=== PATIENT | male | born 1965 | race Caucasian/White ===

== ENCOUNTER 2021-07-24 23:07 | Emergency (ER) | payer OTHER ==
--- OUTSIDE RECORDS SUMMARY | 2021-07-24 23:11 | XMS REPORT | Continuity of Care Document ---
:[address] [facility] t Address [address] [place] [address] Care Team Providers Name Role Phone Unavailable Unavailable Unavailable Problems This patient has no known problems. Allergies, Adverse Reactions, Alerts This patient has no known allergies or adverse reactions. Medications This patient has no known medications. Procedures This patient has no known procedures. Results This patient has no known results.
[2021-07-24] MEDS ORDERED: IBUPROFEN 200 MG TAB PO ONE (23:58)
[2021-07-25] MEDS ORDERED: METOPROLOL TAR 50 MG TAB ONE (00:40)
[2021-07-25] MEDS ORDERED: HYDROCODONE/APAP 7.5/325 MG TAB ONE (00:40)
[2021-07-25] MEDS ORDERED: cloNIDine HCL 0.1 MG TAB ONE ×2 (01:04→01:54)
--- NOTE | 2021-07-25 08:53 | RAD REPORT ---
EXAM DESCRIPTION: RAD - Knee Left 3 View - 07/25/2021 1:05 am CLINICAL HISTORY: knee pain Pain and swelling. COMPARISON: Knee Left Wo Con dated 07/25/2021 FINDINGS: Small bony avulsion is seen along the medial femoral condyle. The adjacent soft tissues ar e moderately thickened. Small suprapatellar joint effusion.
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
[2021-07-25 11:32] VITALS: TEMP 97
[2021-07-25 11:33] VITALS: O2SAT 0
[2021-07-25 11:37] VITALS: BP 160/100
--- NOTE | 2021-07-25 13:06 | RAD REPORT ---
EXAM DESCRIPTION: CT Chest COMPARISON: None. CLINICAL HISTORY: [facility] MAIN chest pain TECHNIQUE: CT images through the chest without IV contrast. Multiplanar reformats. Automated expos ure control was utilized on this examination as a dose lowering technique. CT CHEST FINDINGS: Heart and mediastinum: Heart size is normal. No lymphadenopathy. Vascular: Unremarkable. Thyroid gland: Visualized portions are normal. Lungs: Clear. Airways: No filling defects. No bronchiectasis. Pleura: No pneumothorax. No significant pleural effusion. Subphrenic structures: Within normal limits. Musculoskeletal and soft tissues: Within normal limits for age. CHEST IMPRESSION: No acute chest process. Electronically signed by: Huy York MD 07/25/2021 1:16 AM CDT Due to temporary technical issues with the PACS/Fluency reporting system, reports are being signed by the in house radiologists without review as a courtesy to insure prompt reporting. The interpreting radiologist is fully responsible for the content of the report.
--- NOTE | 2021-07-25 13:15 | RAD REPORT ---
EXAM DESCRIPTION: CT Extremity COMPARISON: None. CLINICAL HISTORY: [facility] MAIN knee pain TECHNIQUE: Multiple axial images of the left knee without IV contrast. Multiplanar reformats. Automa keturah exposure control was utilized on this examination as a dose lowering technique. FINDINGS: Bones and joint spaces: Osseous demineralization is noted. There is a small osseous fragme nt adjacent to the medial femoral condyle. Small hemarthrosis. Muscles and tendons: Edema surrounds the medial collateral ligament. Soft tissues: Normal. IMPRESSION: Medial collateral ligament avulsion from the medial femoral condyle. Small hemarthrosis. Osseous demineralization. Electronically signed by: Huy York MD 07/25/2021 1:23 AM CDT Due to temporary technical issues with the PACS/Fluency reporting system, reports are being signed by the in house radiologists without review as a courtesy to insure prompt reporting. The interpreting radiologist is fully responsible for the content of the report.
== END 2021-07-25 02:19 | disposition home or self-care (01) ==
LOC: ER 23:07
DX: S83.412A Sprain of medial collateral ligament of left knee, initial encounter (principal); M25.062 Hemarthrosis, left knee; S20.221A Contusion of right back wall of thorax, initial encounter; W20.8XXA Other cause of strike by thrown, projected or falling object, initial encounter
CPT/HCPCS: 71250; 73700; 99283

== ENCOUNTER 2021-08-01 09:36 | Emergency (ER) | payer OTHER ==
[2021-08-01 10:30] LABS: Urine Blood 3+ (Negative); Urine Glucose Negative (Negative); Urine Protein 2+ (Negative); Urine Specific Gravity 1.025 (1.005-1.030)
[2021-08-01 10:43] LABS: Basophils % 1.2 % (0-1.3); Hematocrit 35.7 % (39.6-49.0); Lymphocytes % 21.9 % (15.3-44.8); MPV 5.6 fL (7.6-11.3); RBC Red Blood Cell Count 3.68 M/uL (4.33-5.43)
[2021-08-01 10:46] LABS: Protime INR 0.96
[2021-08-01] MEDS ORDERED: NA CHLORIDE 0.9% 1,000 ML ONE (10:58)
--- NOTE | 2021-08-01 11:08 | RAD REPORT ---
EXAM DESCRIPTION: CT - Abdomen Pelvis W Contrast - 08/01/2021 10:40 am CLINICAL HISTORY: Abdominal pain. Hematochezia COMPARISON: none. TECHNIQUE: Computed axial tomography of the abdomen pelvis was obtained. 100 cc Isovue-300 was admin istered intravenously. Oral contrast was not requested which limits evaluation of bowel. All CT scans are performed using dose optimization technique as appropriate and may include automated exposure control or mA/KV adjustment according to patient size. FINDINGS: The liver, spleen, pancreas, adrenal and kidneys appear unremarkable. There is no evidence of diverticulitis. Normal appendix Umbilical hernia contains fat. The neck measures 1 centimeter. The herniated sac 3 centimeters. Bilateral hip arthroplasties have been performed. Artifact from the prosthesis obscures detail of por tions of the lower pelvis. Small hiatal hernia IMPRESSION: No acute abnormality is displayed.
--- NOTE | 2021-08-01 11:13 | RAD REPORT ---
EXAM DESCRIPTION: Leroy Single View08/01/2021 10:41 am CLINICAL HISTORY: Chest pain COMPARISON: none FINDINGS: The lungs appear clear of acute infiltrate. The heart is normal size IMPRESSION: No acute abnormalities displayed
[2021-08-01 11:15] LABS: ALT/SGPT 15 U/L (12-78); AST/SGOT 13 U/L (15-37); Albumin 3.2 g/dL (3.4-5.0); Alkaline Phosphatase 59 U/L (45-117); BUN Blood Urea Nitrogen 19 mg/dL (7-18); Bicarbonate 28 mmol/L (21-32); Bilirubin Direct 0.1 mg/dL (0-0.2); Bilirubin Total 0.4 mg/dL (0.2-1.0); Glucose Level 92 mg/dL (74-106); NT PRO-BNP 84 pg/mL (<125); Potassium 4.2 mmol/L (3.5-5.1); Protein, Total 7.3 g/dL (6.4-8.2); Sodium Level 139 mmol/L (136-145); Troponin (Emerg Dept Use Only) < 0.02 ng/mL (0.0-0.045)
[2021-08-01] MEDS ORDERED: ONDANSETRON 4 MG/2 ML VIAL ONE (12:50)
[2021-08-01] MEDS ORDERED: MORPHINE 4 MG/ML SYR ONE (12:50)
--- NOTE | 2021-08-01 12:58 | ER ---
Nurse's Notes [facility] Name: Melchor Min Age: 55 yrs Sex: Male : 1965 Arrival Date: 08/01/2021 Time: 09:37 Bed 11 Private MD: Diagnosis: Chest pain, unspecified;UTI/ Urinary tract infection, site not specified Presentation: 08/01 09:50 Chief complaint: Patient states: CP and dark red blood in stool for 3 days. + nausea. ll1 Very weak. Slight cough, no known fever. Coronavirus screen: Vaccine status: Patient reports being unvaccinated. Client denies travel out of the [place] in the last 14 days. cough unrelated to allergies, diarrhea, fatigue, nausea, shortness of breath, Client presents with at least one sign or symptom that may indicate coronavirus-19. Standard/surgical mask placed on the client. Ebola Screen: Patient denies travel to an Ebola-affected area in the 21 days before illness onset. Initial Sepsis Screen: Does the patient meet any 2 criteria? No. Patient's initial sepsis screen is negative. Does the patient have a suspected source of infection? No. Patient's initial sepsis screen is negative. Risk Assessment: Do you want to hurt yourself or someone else? Patient reports no desire to harm self or others. Onset of symptoms was July 30, 2021. 09:50 Method Of Arrival: Ambulatory ll1 09:50 Acuity: TERRY 3 ll1 Historical: - Allergies: 09:52 No Known Allergies; ll1 - PMHx: 09:52 heart problems; ll1 - PSHx: 09:52 hip replacements x 2; ll1 - Immunization history:: Client reports having NOT received the Covid vaccine. Flu vaccine is up to date. - Social history:: Smoking status: Patient denies any tobacco usage or history of. - Family history:: not pertinent. - Hospitalizations: : No recent hospitalization is reported. Screenin:08 Abuse screen: Denies threats or abuse. Nutritional screening: No deficits noted. vg1 Tuberculosis screening: No symptoms or risk factors identified. Fall Risk No fall in past 12 months (0 pts). No secondary diagnosis (0 pts). IV access (20 points). Ambulatory Aid- None/Bed Rest/Nurse Assist (0 pts). Gait- Normal/Bed Rest/Wheelchair (0 pts) Mental Status- Oriented to own ability (0 pts). Total Lester Fall Scale indicates No Risk (0-24 pts). Assessment: 10:35 General: Appears in no apparent distress. uncomfortable, Behavior is calm, cooperative. vg1 Pain: Complains of pain in epigastric area and left shoulder Pain currently is 8 out of 10 on a pain scale. Pain began x1 week. Neuro: Level of Consciousness is awake, alert, obeys commands, Oriented to person, place, time, situation, Reports headache. Cardiovascular: Patient's skin is warm and dry. Respiratory: Airway is patent Respiratory effort is even, unlabored. GI: Abdomen is flat, non-distended, Reports bloody stool, epigastric pain, indigestion, nausea, Patient currently denies diarrhea, vomiting. : No signs and/or symptoms were reported regarding the genitourinary system. EENT: No signs and/or symptoms were reported regarding the EENT system. Derm: Skin is intact, is healthy with good turgor. Musculoskeletal: Circulation, motion, and sensation intact. 12:19 Reassessment: Patient appears in no apparent distress at this time. No changes from vg1 previously documented assessment. Patient and/or family updated on plan of care and expected duration. Pain level reassessed. Patient is alert, oriented x 3, equal unlabored respirations, skin warm/dry/pink. Vital Signs: 09:50 BP 138 / 99; Pulse 87; Resp 17; Pulse Ox 99% ; Weight 81.65 kg; Height 5 ft. 9 in. ll1 (175.26 cm); Pain 8/10; 09:54 Temp 98.0; ll1 10:45 BP 165 / 102; Pulse 80; Resp 16; Pulse Ox 100% ; vg1 12:18 BP 163 / 106; Pulse 86; Resp 16; Pulse Ox 100% ; vg1 13:11 BP 155 / 108; Pulse 88; Resp 16; Pulse Ox 100% ; vg1 09:50 Body Mass Index 26.58 (81.65 kg, 175.26 cm) ll1 ED Course: 09:37 Patient arrived in ED. am2 09:49 Carloz Fuchs MD is Attending Physician. rn 09:52 Triage completed. ll1 09:53 Arm band placed on Patient placed in an exam room, on a stretcher. ll1 10:20 Missed attempt(s): 20 gauge in right antecubital area. Bleeding controlled, band aid ll1 applied, catheter tip intact. 10:22 Missed attempt(s): 22 gauge in right forearm. Bleeding controlled, band aid applied, ll1 catheter tip intact. 10:31 Lacy Grant, RN is Primary Nurse. vg1 10:32 Initial lab(s) drawn, by ks, sent to lab. Inserted saline lock: 20 gauge in left vg1 antecubital area, using aseptic technique. Blood collected. 10:40 CT Abd/Pelvis - IV Contrast Only In Process Unspecified. EDMS 10:41 XRAY Chest (1 view) In Process Unspecified. EDMS 11:09 Patient has correct armband on for positive identification. Bed in low position. Call vg1 light in reach. Side rails up X 1. 11:51 Basic Metabolic Panel Sent. kj1 11:51 CBC with Diff Sent. kj1 12:53 ED physician to see patient. ap3 13:10 No provider procedures requiring assistance completed. IV discontinued, intact, vg1 bleeding controlled, No redness/swelling at site. Pressure dressing applied. Administered Medications: 10:55 Drug: NS 0.9% 1000 ml Route: IV; Rate: 1000 ml; Site: left antecubital; vg1 12:27 Follow up: IV Status: Completed infusion; IV Intake: 1000ml vg1 12:30 Drug: Zofran (Ondansetron) 4 mg Route: IVP; Site: left antecubital; vg1 12:59 Follow up: Response: No adverse reaction; Nausea is decreased ap3 12:32 Drug: morphine 4 mg Route: IVP; Site: left antecubital; vg1 12:59 Follow up: Response: No adverse reaction; Pain is decreased ap3 12:58 Drug: cloNIDine 0.2 mg Route: PO; ap3 13:10 Follow up: Response: Medication administered at discharge. vg1 12:58 Drug: Cipro (ciprofloxacin) 500 mg Route: PO; ap3 13:10 Follow up: Response: Medication administered at discharge. vg1 Intake: 12:27 IV: 1000ml; Total: 1000ml. vg1 Outcome: 12:58 Discharge ordered by . rn 13:11 Discharged to home ambulatory. vg1 13:11 Condition: stable 13:11 Discharge instructions given to patient, Instructed on discharge instructions, follow up and referral plans. medication usage, Demonstrated understanding of instructions, follow-up care, medications, Prescriptions given X 3. 13:11 Patient left the ED. vg1 Signatures: Dispatcher [employer] EDMS Carloz Fuchs MD MD rn Moreno, Amanda am2 Moni Eddy RN RN ap3 Nelia Hairston kj1 Lacy Grant RN RN vg1 Francisca Otto RN RN ll1 Corrections: (The following items were deleted from the chart) 11: 10:35 Pain: Complains of pain in epigastric area Pain currently is 8 out of 10 on a vg1 pain scale. Pain began x1 week vg1 11: 10:35 Neuro: Level of Consciousness is awake, alert, obeys commands, Oriented to vg1 person, place, time, situation, vg1
--- NOTE | 2021-08-01 12:58 | EDPHYS ---
Physician Documentation [facility] Name: Melchor Min Age: 55 yrs Sex: Male : 1965 Arrival Date: 08/01/2021 Time: 09:37 Bed 11 Private MD: ED Physician Carloz Fuchs HPI: 08/01 10:09 This 55 yrs old Male presents to ER via Ambulatory with complaints of Bloody rn Stools, Chest Pain. 10:09 The patient or guardian reports chest pain that is located primarily in the substernal rn area. Onset: 3 day(s) ago. The pain does not radiate. Associated signs and symptoms: Pertinent positives: abdominal pain, Pertinent negatives: diaphoresis, headache, shortness of breath, syncope, vomiting. The chest pain is described as aching. Duration: The patient or guardian reports multiple episodes, that are intermittent. Modifying factors: The symptoms are alleviated by nothing. the symptoms are aggravated by nothing. Severity of pain: At its worst the pain was mild in the emergency department the pain is unchanged. The patient has not experienced similar symptoms in the past. The patient has been recently seen by a physician:. Patient reports 3 days of chest pain, central, nonradiating. States also having small amounts of dark red blood in stool for about a week. Reports generalized weakness, fatigue, muscle aches, diarrhea. Denies fever. Does not take any blood thinners.. Historical: - Allergies: 09:52 No Known Allergies; ll1 - PMHx: 09:52 heart problems; ll1 - PSHx: 09:52 hip replacements x 2; ll1 - Immunization history:: Client reports having NOT received the Covid vaccine. Flu vaccine is up to date. - Social history:: Smoking status: Patient denies any tobacco usage or history of. - Family history:: not pertinent. - Hospitalizations: : No recent hospitalization is reported. ROS: 10:09 Constitutional: Negative for fever, chills, and weight loss, Eyes: Negative for injury, rn pain, redness, and discharge, ENT: Negative for injury, pain, and discharge, Neck: Negative for injury, pain, and swelling, Cardiovascular: Negative for palpitations, and edema, Respiratory: Negative for shortness of breath, cough, wheezing, and pleuritic chest pain, Abdomen/GI: Negative for vomiting,and constipation, Back: Negative for injury and pain, : Negative for injury, bleeding, discharge, and swelling, MS/Extremity: Negative for injury and deformity, Skin: Negative for injury, rash, and discoloration, Neuro: Negative for headache, numbness, tingling, and seizure. Exam: 10:09 Constitutional: This is a well developed, well nourished patient who is awake, alert, rn and in no acute distress. Head/Face: Normocephalic, atraumatic. Eyes: Periorbital areas with no swelling, redness, or edema. Cardiovascular: Regular rate and rhythm. No pulse deficits. Respiratory: No increased work of breathing, no retractions or nasal flaring. Abdomen/GI: Soft, non-tender Skin: Warm, dry MS/ Extremity: Pulses equal, no cyanosis. Neuro: Awake and alert, GCS 15 Vital Signs: 09:50 BP 138 / 99; Pulse 87; Resp 17; Pulse Ox 99% ; Weight 81.65 kg; Height 5 ft. 9 in. ll1 (175.26 cm); Pain 8/10; 09:54 Temp 98.0; ll1 10:45 BP 165 / 102; Pulse 80; Resp 16; Pulse Ox 100% ; vg1 12:18 BP 163 / 106; Pulse 86; Resp 16; Pulse Ox 100% ; vg1 13:11 BP 155 / 108; Pulse 88; Resp 16; Pulse Ox 100% ; vg1 09:50 Body Mass Index 26.58 (81.65 kg, 175.26 cm) ll1 MDM: 09:56 Patient medically screened. rn 12:55 Differential diagnosis: acute myocardial infarction, acute pericarditis, anxiety, rn coronary artery disease chest wall pain, costochondritis, esophagitis, gastritis, gastroesophageal reflux disease (GERD), pneumothorax. Data reviewed: vital signs, nurses notes, lab test result(s), radiologic studies, CT scan, plain films, and as a result, I will discharge patient. Data interpreted: hall monitor: rate is 86 beats/min, rhythm is normal sinus rhythm, regular, with no ectopy, Interpretation: normal rate, normal rhythm, Pulse oximetry: on room air is 100 %. Interpretation: normal. Counseling: I had a detailed discussion with the patient and/or guardian regarding: the historical points, exam findings, and any diagnostic results supporting the discharge/admit diagnosis, lab results, radiology results, the need for outpatient follow up, to return to the emergency department if symptoms worsen or persist or if there are any questions or concerns that arise at home. Special discussion: Based on the patient's history, exam, and Dx evaluation, there is no indication for emergent intervention or inpatient Tx. It is understood by the patient/guardian that if the Sx's persist or worsen they need to return immediately for re-evaluation. Based on the patient's Hx, exam, and Dx evaluation, there is no indication for emergent surgery or inpatient Tx. It is understood by the patient/guardian that if the Sx's persist or worsen they need to return immediately for re-evaluation. I discussed with the patient/guardian in detail that at this point there is no indication for admission to the hospital. It is understood, however, that if the symptoms persist or worsen the patient needs to return immediately for re-evaluation. ED course: No acute findings on CT abdomen pelvis. Positive UTI. Negative troponin. EKG without ischemia. Will DC home with antibiotics and return precautions.. 08/01 09:57 Order name: Basic Metabolic Panel 08/01 09:57 Order name: CBC with Diff 08/01 09:57 Order name: LFT's; Complete Time: 11: 08/01 09:57 Order name: NT PRO-BNP; Complete Time: 11: 08/01 09:57 Order name: PT-INR; Complete Time: 11: 08/01 09:57 Order name: Troponin (emerg Dept Use Only); Complete Time: 11: 08/01 09:57 Order name: XRAY Chest (1 view); Complete Time: 11: 08/01 09:58 Order name: Basic Metabolic Panel; Complete Time: 11:18 [facility] 08/01 09:58 Order name: CBC with Automated Diff; Complete Time: 11: [facility] 08/01 10:09 Order name: CT Abd/Pelvis - IV Contrast Only; Complete Time: 11:18 08/01 10:30 Order name: Urine Dipstick-Ancillary; Complete Time: 11: [facility] 08/01 12:40 Order name: SARS-COV-2 RT PCR; Complete Time: 12:51 [facility] 08/01 09:57 Order name: EKG; Complete Time: 09:58 rn 08/01 09:57 Order name: Cardiac monitoring; Complete Time: 11:06 rn 08/01 09:57 Order name: EKG - Nurse/Tech; Complete Time: 11:06 rn 08/01 09:57 Order name: IV Saline Lock; Complete Time: 10:33 rn 08/01 09:57 Order name: Labs collected and sent; Complete Time: 10:33 rn 08/01 09:57 Order name: O2 Per Protocol; Complete Time: 10:33 rn 08/01 09:57 Order name: O2 Sat Monitoring; Complete Time: 10:33 rn Administered Medications: 10:55 Drug: NS 0.9% 1000 ml Route: IV; Rate: 1000 ml; Site: left antecubital; vg1 12:27 Follow up: IV Status: Completed infusion; IV Intake: 1000ml vg1 12:30 Drug: Zofran (Ondansetron) 4 mg Route: IVP; Site: left antecubital; vg1 12:59 Follow up: Response: No adverse reaction; Nausea is decreased ap3 12:32 Drug: morphine 4 mg Route: IVP; Site: left antecubital; vg1 12:59 Follow up: Response: No adverse reaction; Pain is decreased ap3 12:58 Drug: cloNIDine 0.2 mg Route: PO; ap3 13:10 Follow up: Response: Medication administered at discharge. vg1 12:58 Drug: Cipro (ciprofloxacin) 500 mg Route: PO; ap3 13:10 Follow up: Response: Medication administered at discharge. vg1 Disposition Summary: 08/01/21 12:58 Discharge Ordered Location: Home rn Problem: new rn Symptoms: have improved rn Condition: Stable rn Diagnosis - Chest pain, unspecified rn - UTI/ Urinary tract infection, site not specified rn Followup: rn - With: Private Physician - When: As needed - Reason: Recheck today's complaints, Re-evaluation by your physician Discharge Instructions: - Discharge Summary Sheet rn - Nonspecific Chest Pain, Adult rn - Urinary Tract Infection, Adult rn Forms: - Medication Reconciliation Form rn - Thank You Letter rn - Antibiotic collections attorney - Prescription Opioid Use rn Prescriptions: - ondansetron 4 mg Oral tablet,disintegrating - take 1 tablet by ORAL route every 8 hours As needed; 20 tablet; Refills: 0, rn Product Selection Permitted - Cipro 500 mg Oral Tablet - take 1 tablet by ORAL route every 12 hours for 7 days; 14 tablet; Refills: 0, rn Product Selection Permitted - Tramadol 50 mg Oral Tablet - take 1 tablet by ORAL route every 8 hours as needed; 12 tablet; Refills: 0, rn Product Selection Permitted Signatures: Dispatcher [employer] EDMS Carloz Fuchs MD MD rn Prokisch, Amanda RN RN ap3 Lacy Grant RN RN vg1 Francisca Otto RN RN ll1 Corrections: (The following items were deleted from the chart) 11:45 09:58 CORONAVIRUS+MR.LAB.BRZ ordered. EDMS EDMS
[2021-08-01] MEDS ORDERED: CIPROFLOXACIN HCL 500 MG TAB ONE (13:21)
[2021-08-01] MEDS ORDERED: cloNIDine HCL 0.1 MG TAB ONE (13:21)
[2021-08-01 14:43] VITALS: TEMP 98
[2021-08-01 14:44] VITALS: O2SAT 100
[2021-08-01 14:47] VITALS: BP 155/108
== END 2021-08-01 13:11 | disposition home or self-care (01) ==
LOC: ER 09:36
DX: N39.0 Urinary tract infection, site not specified (principal); Z20.822 Contact with and (suspected) exposure to COVID-19
CPT/HCPCS: 96361; 93005; 85025; 80048; 36415; 85610; 82565; 80076; 81003; 84484; 83880; 74177; 71045; 96375; 96374; 99284; U0003; Q9967; J7030; J2405

== ENCOUNTER 2023-12-25 06:19 | Inpatient (IN) | payer OTHER ==
--- OUTSIDE RECORDS SUMMARY | 2023-12-25 06:24 | XMS REPORT | Continuity of Care Document ---
Author Name Unknown Address [address] [place] [address]. [address] [place] [id number] [facility] thconnect Address [address] [facility]. [address] [place] [address] Care Team Providers Care Baseball Glove Stuffer Name Role Phone Mayi Roman Attending Clinician Payers Payer Name Policy Type Policy Number Effective Date Expirati on Date Source Allergies, Adverse Reactions, Alerts Allergy Name Allergy Type Status Severity Reaction(s) Onset Date Inactive Date Treating Clinician Comments Source NO KNOWN ALLERGIE S Drug Class Active [facility] Social History Social Habit Start Date Stop Date Quantity Comments Source Sex Assigned At [facility] Exposure to SARS-CoV-2 (event) Not sure [facility] Smoking Status Start Date Stop Date Source Unknown if ever smoked [facility] Medications Ordered Medication Name Filled Medication Name Start Date Stop Date Current Medication? Ordering Clinician Indication Dosage Frequency Signature (SIG) Comments Components Source HYDROcodone -acetaminop hen (NORCO 5) 5-325 mg tablet 1 tablet 01-07 02:45: 00 01-07 02:15 :00 No 1{tbl} 1 tablet, Oral, ONCE, 1 dose, 01/06/21 at 2045, SILVINA [facility] ketorolac (TORADOL) injection 30 mg 01-07 00:15: 00 01-06 23:19 :00 No 30mg 30 mg, Slow IV Push, ONCE, 1 dose, 01/06/21 at 1815, SILVINA
Fa culty member approving Restricted medication : MAYI MONSON [facility] traMADoL 50 mg tablet 01-06 00:00: 00 Yes [id number] 50mg Take 1 tablet by mouth every 6 (six) hours as needed for Pain (scale 7-10). Indication s: acute pain [facility] ibuprofen 600 mg tablet 01-06 00:00: 00 Yes [id number] 600mg Take 1 tablet by mouth every 6 (six) hours as needed for Pain (scale 4-6). [facility] Vital Signs Vital Name Observation Time Observation Value Comments S ource Systolic blood pressure 2021-01-07 01:00:00 148 mm[Hg] [facility] Diastolic blood pressure 2021-01-07 01:00:00 93 mm[Hg] [facility] Heart rate 2021-01-07 01:00:00 92 /min [facility] Respiratory rate 2021-01-07 01:00:00 18 /min [facility] Oxygen saturation in Arterial blood by Pulse oximetry 2021-01-07 01:00:00 97 /min [facility] Body temperature 2021-01-06 22:30:00 36.11 Brittnee [facility] Body height 2021-01-06 22:30:00 175.3 cm [facility] Body weight 2021-01-06 22:30:00 77.111 kg [facility] BMI 2021-01-06 22:30:00 25.10 kg/m2 [facility] Procedures Procedure Date / Time Performed Performing Clinicia n Source CT ABDOMEN PELVIS WO CONTRAST 2021-01-06 23:18:52 Mayi Monson [facility] COMP. METABOLIC PANEL (41066) 2021-01-06 22:44:00 Mayi Monson [facility] CBC WITH DIFF 2021-01-06 22:44:00 [facility] URINALYSIS 2021-01-06 22:44:00 [facility] NOTICE OF PRIVACY PRACTICES 2021-01-06 22:24:12 Doctor Unassigned, [place] [facility] CONSENT/REFUSAL FOR DIAGNOSIS AND TREATMENT 2021-01-06 22:19:29 Doctor Unassigned, [place] [facility] Encounters Start Date/Time End Date/Time Encounter Type Admission Type Attending Clinicians Care Facility Care Department Encounter ID Source 2021-01-06 16:24:00 2021-01-06 20:54:00 Emergency Mayi Monson S [facility] [id number] [facility] 2021-01-06 16:21:00 2021-01-06 16:21:00 Emergency X [facility] ERT [id number] [facility] Results Test Description Test Time Test Comments Results Result Comments Source CT ABDOMEN PELVIS WO CONTRAST 00:33:12 1. ?Nonobstructive punctate left renal calculi. No hydronephrosis. Noobstructive urolithiasis 2. ?Mild hepatomegaly. Preliminary Report Dictated by Resident: Lizet Flores I, Neli Bae MD., have reviewed this study and agree with the abovereport.CT OF THE ABDOMEN AND PELVIS WITHOUT IV CONTRAST HISTORY: Flank pain, kidney stone suspected TECHNIQUE: Continuous axial imaging was performed with sagittal and coronalreformatted images without the use of IV contrast with patient in proneposition per renal stone protocol. COMPARISON: None FINDINGS: Suboptimal evaluation of the intra-abdominal organs due to lack of IVcontrast. Imaging evaluation of the pelvis degraded by streak artifact dueto bilateral hip prosthesis. LOWER THORAX: The lung bases are clear.. No pericardial effusion orcardiomegaly. LIVER: Mildly enlarged measuring 18.8 cm in craniocaudal dimension.Subcentimeter hypoattenuating lesion in hepatic segment 2 (2:19), too smallto characterize, but likely benign such as a small cyst. GALLBLADDER & BILIARY TREE: The gallbladder is unremarkable. PANCREAS: No focal lesion or ductal dilation. SPLEEN: No splenomegaly. ADRENALS: No adrenal nodules. KIDNEYS: Two small left renal nonobstructive calculi measure up to 2 mm(2:57). No hydronephrosis. ? PELVIS/BLADDER: Imaging evaluation of the bladder and prostate are degradedby streak artifact. No abnormality is appreciated. GASTROINTESTINAL: No evidence of bowel obstruction or perientericinflammation . Normal appendix (6:31). PERITONEUM/RETROPERITON EUM: No free air or fluid. Small fat-containingumbilical varices is periumbilical ventral abdominal hernia. VASCULAR: ?Minimal atherosclerotic calcification. LYMPHATICS: Small upper abdominal lymph nodes noted about the celiac axisand radha hepatis, likely reactive. BONES AND SOFT TISSUES: No concerning bony lesion identified. Traceretrolisthesis of L2 on L3 Changes of bilateral total hip arthroplasty. [facility], Radiant Results Inft User - 01/06/2021 6:40 PM CSTCT OF THE ABDOMEN AND PELVIS WITHOUT IV CONTRASTHISTORY: Flank pain, kidney stone suspected TECHNIQUE: Continuous axial imaging was performed with sagittal and coronalreformatted images without the use of IV contrast with patient in proneposition per renal stone protocol.COMPARISON: NoneFINDINGS:Suboptimal evaluation of the intra-abdominal organs due to lack of IVcontrast. Imaging evaluation of the pelvis degraded by streak artifact dueto bilateral hip prosthesis.LOWER THORAX: The lung bases are clear.. No pericardial effusion orcardiomegaly. LIVER: Mildly enlarged measuring 18.8 cm in craniocaudal dimension.Subcentimeter hypoattenuating lesion in hepatic segment 2 (2:19), too smallto characterize, but likely benign such as a small cyst.GALLBLADDER & BILIARY TREE: The gallbladder is unremarkable.PANCREAS: No focal lesion or ductal dilation. SPLEEN: No splenomegaly. ADRENALS: No adrenal nodules. KIDNEYS: Two small left renal nonobstructive calculi measure up to 2 mm(2:57). No hydronephrosis. PELVIS/BLADDER: Imaging evaluation of the bladder and prostate are degradedby streak artifact. No abnormality is appreciated. GASTROINTESTINAL: No evidence of bowel obstruction or perientericinflammation . Normal appendix (6:31). PERITONEUM/RETROPERITON EUM: No free air or fluid. Small fat-containingumbilical varices is periumbilical ventral abdominal hernia. VASCULAR: Minimal atherosclerotic calcification. LYMPHATICS: Small upper abdominal lymph nodes noted about the celiac axisand radha hepatis, likely reactive. BONES AND SOFT TISSUES: No concerning bony lesion identified. Traceretrolisthesis of L2 on L3 Changes of bilateral total hip arthroplasty.IMPRESSION 1. Nonobstructive punctate left renal calculi. No hydronephrosis. Noobstructive urolithiasis2. Mild hepatomegaly.Preliminar y Report Dictated by Resident: Raina Leonardt A Skaug, MD., have reviewed this study and agree with the abovereport. [facility] [id number] 23:04:00* Test Item Value Reference Range Interpretation Comme nts NA (test code = 2692105460) 139 mmol/L 135-145 K (test code = 9622117960) 3.7 mmol/L 3.5-5 CL (test code = 7229268427) 105 mmol/L 98-108 CO2 TOTAL (test code = 2542271769) 24 mmol/L 23-31 AGAP (test code = 9925651414) 2-16 BUN (test code = 7571651976) 17 mg/dL 7-23 GLUCOSE (test code = 7212887283) 123 mg/dL 70-110 H CREATININE (test code = 7739139672) 0.69 mg/dL 0.6-1.25 TOTAL BILI (test code = 1903797297) 0.4 mg/dL 0.1-1.1 CALCIUM (test code = 7087576391) 8.9 mg/dL 8.6-10.6 T PROTEIN (test code = 0151633861) 6.9 g/dL 6.3-8.2 ALBUMIN (test code = 9821391007) 4.1 g/dL 3.5-5 ALK PHOS (test code = 0895640325) 52 U/L 34-122 ALTv (test code = 1742-6) 10 U/L 5-50 AST(SGOT) (test code = 4062266649) 20 U/L 13-40 eGFR Calculation (Non-) (test code = 8856591687) mL/min/1.73m2 eGFR Calculation () (test code = 9487328180) mL/min/1.73m2 DIANE (test code = DIANE) Association of Glomerular Filtration Rate (GFR) and Staging of Kidney Disease* + --+ --+ ------+| GFR (mL/min/1.73 m2) ?| With Kidney Damage ?| ?Without Kidney Damage+ --------+ --------+ +| ?>90 ?| ?Stage one ?| ? Normal ?+ ---+ ---+ -------+| ?60-89 ?| ?Stage two ?| ? Decreased GFR ? + --+ --+ ------+| ?30-59 ?| ?Stage three ?| ? Stage three ? + --+ --+ ------+| ?15-29 ?| ?Stage four ? | ? Stage four ?+ ---+ ---+ -------+| ?<15 (or dialysis) ? ?| ?Stage five ? | ? Stage five ?+ ---+ ---+ -------+ *Each stage assumes the associated GFR level has been in effect for at least three months. ?Stages 1 to 5, with or without kidney disease, indicate chronic kidney disease. Notes: Determination of stages one and two (with eGFR >59mL/min/1.73 m2) requires estimation of kidney damage for at least three months as defined by structural or functional abnormalities of the kidney, manifested by either:Pathological abnormalities or Markers of kidney damage (including abnormalities in the composition of the blood or urine or abnormalities in imaging tests). Lab Interpretation (test code = 49583-2) Abnormal [facility] with Ulhengebcaru4994-60-65 22:52:00* Test Item Value Reference Range Interpretation Comme nts WBC (test code = 6690-2) See_Comment [BYOM!] The system which generated this result transmitted reference range: 4.20 - 10.70 10*3/?L. The reference range was not used to interpret this result as normal/abnormal. RBC (test code = 789-8) See_Comment [BYOM!] The system which generated this result transmitted reference range: 4.26 - 5.52 10*6/?L. The reference range was not used to interpret this result as normal/abnormal. HGB (test code = 718-7) 14.1 g/dL 12.2-16.4 HCT (test code = 4544-3) 40.7 % 38.4-49.3 MCV (test code = 787-2) 90.8 fL 81.7-95.6 MCH (test code = 785-6) 31.5 pg 26.1-32.7 MCHC (test code = 786-4) 34.6 g/dL 31.2-35 RDW-SD (test code = 25234-7) 41.7 fL 38.5-51.6 RDW-CV (test code = 788-0) 12.6 % 12.1-15.4 PLT (test code = 777-3) See_Comment [Automated Cast[employer] ge] The system which generated this result transmitted reference range: 150 - 328 10*3/?L. The reference range was not used to interpret this result as normal/abnormal. MPV (test code = 41165-4) 8.1 fL 9.8-13 L NRBC/100 WBC (test code = 5185129324) See_Comment [Automated [employer] ssage] The system which generated this result transmitted reference range: 0.0 - 10.0 /100 WBCs. The reference range was not used to interpret this result as normal/abnormal. NRBC x10^3 (test code = 8780062267) <0.01 See_Comment [Automated [employer]DB[employer] ge] The system which generated this result transmitted reference range: 10*3/?L. The reference range was not used to interpret this result as normal/abnormal. GRAN MAT (NEUT) % (test code = 770-8) 49.5 % IMM GRAN % (test code = 7278064690) 0.40 % LYMPH % (test code = 736-9) 27.3 % MONO % (test code = 5905-5) 11.2 % EOS % (test code = 713-8) 10.8 % BASO % (test code = 706-2) 0.8 % GRAN MAT x10^3(ANC) (test code = 4155922301) 2.34 10*3/uL 1.99-6.95 IMM GRAN x10^3 (test code = 5834332851) <0.03 0-0.06 LYMPH x10^3 (test code = 731-0) 1.29 10*3/uL 1.09-3.23 MONO x10^3 (test code = 742-7) 0.53 10*3/uL 0.36-1.02 EOS x10^3 (test code = 711-2) 0.51 10*3/uL 0.06-0.53 BASO x10^3 (test code = 704-7) 0.04 10*3/uL 0.01-0.09 Lab Interpretation (test code = 22484-2) Abnormal [facility].Ova + Parasite [id number] 18:07:48CommentNo ova, cysts, or parasites seen. One negative specimen does not rule out the possibility ofa parasitic infection.Performed At: [facility] [address] [id number] Pollock MD Ph:[phone] + Parasite Exam LC 2019-05-27 18:07:47Final reportThese results were obtained using wet preparation(s) andtrichrome stained smear. This test does not include testingfor Cryptosporidium parvum, Cyclospora, or Microsporidia.Performed At: [facility] [address] [id number] Pollock MD Ph:[phone] Blood Kzrcoux0657-87-62 12:02:12No growth at 5 days.POC Vldubpt0197-43-03 11:15:26* Test Item Value Reference Range Interpretation Comme nts Glucose POC (test code = Glucose POC) 107 mg/dL 70-115 If you consi joni your patient critically ill, the Christopher-Accu Check Infrom II meter should not be used for Glucose determination. Draw a venous Glucose and send to the main Lab for analysis. Vitamin B12 Qkypz0937-57-06 08:24:35* Test Item Value Reference Range Interpretation Comme nts B12 Level (test code = B12 Level) 589 pg/mL 211-946 Folate Oqegk6647-58-98 08:24:35* Test Item Value Reference Range Interpretation Comme [facility] Folate Level (test code = Folate Level) 15.2 ng/mL N Normal 3.0- 20.0 ng/mLBorderline 2.2-3.0 ng/mLDeficient <2.2 ng/mL POC Olqfxlf3328-67-26 08:22:56* Test Item Value Reference Range Interpretation Comme nts Glucose POC (test code = Glucose POC) 92 mg/dL 70-115 If you consi joni your patient critically ill, the Christopher-Accu Check Infrom II meter should not be used for Glucose determination. Draw a venous Glucose and send to the main Lab for analysis. IG Vhtus8649-36-92 07:07:44* Test Item Value Reference Range Interpretation Comme nts IG (test code = IG) 0.2 % 0.0-5.0 IG Abs (test code = IG Abs) 0 x10 N Complete Blood Count with Jfwxeksthkzv2199-98-72 07:07:43* Test Item Value Reference Range Interpretation Comme nts WBC (test code = WBC) 4.2 x10 4.4-10.5 L RBC (test code = RBC) 3.38 x10 4.10-5.70 L Hgb (test code = Hgb) 11.8 g/dL 13.4-17.4 L Hct (test code = Hct) 33.2 % 38.7-52.0 L MCV (test code = MCV) 98.20 fL 80.00-100.00 MCHC (test code = MCHC) 35.50 g/dL 32.00-37.50 RDW CV (test code = RDW CV) 15.1 % 11.5-14.5 H MCH (test code = MCH) 34.9 pg 27.0-32.5 H Platelets (test code = Platelets) 60.0 x10 140.0-440.0 L MPV (test code = MPV) 10.2 fL N Slide Review (test code = Slide Review) Auto Auto Result crea keturah by GL_SJM_SLIDE_REV_AUTO GL_SJM_XN_RFLX GL_SJM_XN_RFLX nRBC (test code = nRBC) 0 N NRBC Abs (test code = NRBC Abs) 0.00 x10 N Pos Count XN (test code = Pos Count XN) A N IPF (test code = IPF) 0 % N Automated Uwqbzpnidmvi6752-34-69 07:07:43* Test Item Value Reference Range Interpretation Comme nts Neutro Auto (test code = Gay tro Auto) 52.5 % 36.0-70.0 Lymph Auto (test code = Lymph Auto) 32.6 % 12.0-44.0 Crowley Auto (test code = Crowley Auto) 9.0 % 0.0-11.0 Eos, Auto (test code = Eos, Auto) 5.2 % 0.0-7.0 Basophil Auto (test code = B asophil Auto) 0.5 % 0.0-2.0 Neutro Absolute (test code = Neutro Absolute) 2.2 x10 1.6-7.4 Lymph Absolute (test code = Lymph Absolute) 1.37 x10 .50-4.60 Crowley Absolute (test code = M jeremias Absolute) .38 x10 .00-1.20 Eos Absolute (test code = Eo s Absolute) 0.22 x10 0.00-0.74 Baso Absolute (test code = B aso Absolute) 0.02 x10 0.00-0.21 Comprehensive Metabolic Xxmtp2684-60-63 06:40:56* Test Item Value Reference Range Interpretation Comme nts Sodium Level (test code = So dium Level) 139.0 mmol/L 135.0-145.0 Potassium Level (test code = Potassium Level) 3.7 mmol/L 3.5-5.1 Chloride Level (test code = Chloride Level) 100 mmol/L 98-105 CO2 (test code = CO2) 25 mmol/L 22-29 Anion Gap (test code = Anion Gap) 14 mmol/L 7-16 BUN (test code = BUN) 16.90 mg/dL 6.00-20.00 Creatinine Level (test code = Creatinine Level) 0.70 mg/dL 0.70-1.20 BUN/Creat Ratio (test code = BUN/Creat Ratio) 24 N Glucose Level (test code = Glucose Level) 98 mg/dL 70-115 Calcium Level (test code = Calcium Level) 9.5 mg/dL 8.3-10.5 Alk Phos (test code = Alk Phos) 104 U/L 40-129 Bilirubin Total (test code = Bilirubin Total) 0.6 mg/dL 0.1-0.9 Albumin Level (test code = Albumin Level) 3.7 g/dL 3.5-5.2 Protein Total (test code = Protein Total) 6.1 g/dL 6.4-8.3 L ALT (test code = ALT) 42 U/L 1-41 H AST (test code = AST) 43 U/L 1-40 H Globulin (test code = Globulin) 2.4 g/dL 2.9-3.1 L A/G Ratio (test code = A/G Ratio) 1.5 ratio N Comprehensive Metabolic [id number] 06:40:56* Test Item Value Reference Range Interpretation Comme nts Sodium Level (test code = Sodium Level) 139.0 mmol/L 135.0-145.0 Potassium Level (test code = Potassium Level) 3.7 mmol/L 3.5-5.1 Chloride Level (test code = Chloride Level) 100 mmol/L 98-105 CO2 (test code = CO2) 25 mmol/L 22-29 Anion Gap (test code = Anion Gap) 14 mmol/L 7-16 BUN (test code = BUN) 16.90 mg/dL 6.00-20.00 Creatinine Level (test code = Creatinine Level) 0.70 mg/dL 0.70-1.20 BUN/Creat Ratio (test code = BUN/Creat Ratio) 24 N Glucose Level (test code = Glucose Level) 98 mg/dL 70-115 Calcium Level (test code = Calcium Level) 9.5 mg/dL 8.3-10.5 Alk Phos (test code = Alk Phos) 104 U/L 40-129 Bilirubin Total (test code = Bilirubin Total) 0.6 mg/dL 0.1-0.9 Albumin Level (test code = Albumin Level) 3.7 g/dL 3.5-5.2 Protein Total (test code = Protein Total) 6.1 g/dL 6.4-8.3 L ALT (test code = ALT) 42 U/L 1-41 H AST (test code = AST) 43 U/L 1-40 H Globulin (test code = Globulin) 2.4 g/dL 2.9-3.1 L A/G Ratio (test code = A/G Ratio) 1.5 ratio N eGFR AA (test code = eGFR AA) >60 mL/min/1.73 m2 N eGFR (estimated Glomerular Filtration Rate) is an estimated value, calculated from the patient's serum creatinine using the MDRD equation. It is NOT the patient's actual GFR. The eGFR provides a more clinically useful measure of kidney disease than serum creatinine alone.This calculation takes sex and race into account, if the information is provided. If the race is not provided, and the patient is -Citizen Of [place], multiply by 1.212. If sex is not provided, and the patient is female, multiply by 0.742. Results for patients <18 years of age have not been validated by the MDRD study and should be interpreted with caution. eGFR Result Interpretation:eGFR > or = 60 is in the Normal RangeeGFR < 60 may mean kidney diseaseeGFR < 15 may mean kidney failure Ranges recommended by the National Kidney Foundation, http://nkdep.nih.gov Magnesium [id number] 06:40:56* Test Item Value Reference Range Interpretation Comme nts Magnesium Level (test code = Magnesium Level) 1.6 mg/dL 1.7-2.5 L Phosphorus [id number] 06:40:56* Test Item Value Reference Range Interpretation Comme nts Phosphorus Level (test code = Phosphorus Level) 5.40 mg/dL 2.70-4.50 H Comprehensive Metabolic [id number] 06:40:56* Test Item Value Reference Range Interpretation Comme nts Sodium Level (test code = Sodium Level) 139.0 mmol/L 135.0-145.0 Potassium Level (test code = Potassium Level) 3.7 mmol/L 3.5-5.1 Chloride Level (test code = Chloride Level) 100 mmol/L 98-105 CO2 (test code = CO2) 25 mmol/L 22-29 Anion Gap (test code = Anion Gap) 14 mmol/L 7-16 BUN (test code = BUN) 16.90 mg/dL 6.00-20.00 Creatinine Level (test code = Creatinine Level) 0.70 mg/dL 0.70-1.20 BUN/Creat Ratio (test code = BUN/Creat Ratio) 24 N Glucose Level (test code = Glucose Level) 98 mg/dL 70-115 Calcium Level (test code = Calcium Level) 9.5 mg/dL 8.3-10.5 Alk Phos (test code = Alk Phos) 104 U/L 40-129 Bilirubin Total (test code = Bilirubin Total) 0.6 mg/dL 0.1-0.9 Albumin Level (test code = Albumin Level) 3.7 g/dL 3.5-5.2 Protein Total (test code = Protein Total) 6.1 g/dL 6.4-8.3 L ALT (test code = ALT) 42 U/L 1-41 H AST (test code = AST) 43 U/L 1-40 H Globulin (test code = Globulin) 2.4 g/dL 2.9-3.1 L A/G Ratio (test code = A/G Ratio) 1.5 ratio N eGFR AA (test code = eGFR AA) >60 mL/min/1.73 m2 N eGFR (estimated Glomerular Filtration Rate) is an estimated value, calculated from the patient's serum creatinine using the MDRD equation. It is NOT the patient's actual GFR. The eGFR provides a more clinically useful measure of kidney disease than serum creatinine alone.This calculation takes sex and race into account, if the information is provided. If the race is not provided, and the patient is -Citizen Of [place], multiply by 1.212. If sex is not provided, and the patient is female, multiply by 0.742. Results for patients <18 years of age have not been validated by the MDRD study and should be interpreted with caution. eGFR Result Interpretation:eGFR > or = 60 is in the Normal RangeeGFR < 60 may mean kidney diseaseeGFR < 15 may mean kidney failure Ranges recommended by the National Kidney Foundation, http://nkdep.nih.gov eGFR Non-AA (test code = eGFR Non-AA) >60.00 mL/min/1.73 m2 N eGFR (estimated Glomerular Filtration Rate) is an estimated value, calculated from the patient's serum creatinine using the MDRD equation. It is NOT the patient's actual GFR. The eGFR provides a more clinically useful measure of kidney disease than serum creatinine alone.This calculation takes sex and race into account, if the information is provided. If the race is not provided, and the patient is -Citizen Of [place], multiply by 1.212. If sex is not provided, and the patient is female, multiply by 0.742. Results for patients <18 years of age have not been validated by the MDRD study and should be interpreted with caution. eGFR Result Interpretation:eGFR > or = 60 is in the Normal RangeeGFR < 60 may mean kidney diseaseeGFR < 15 may mean kidney failure Ranges recommended by the National Kidney Foundation, http://nkdep.nih.gov POC [id number] 19:14:54* Test Item Value Reference Range Interpretation Comme nts Glucose POC (test code = Glucose POC) 125 mg/dL 70-115 H If you consi joni your patient critically ill, the Christopher-Accu Check Infrom II meter should not be used for Glucose determination. Draw a venous Glucose and send to the main Lab for analysis. POC [id number] 16:30:50* Test Item Value Reference Range Interpretation Comme nts Glucose POC (test code = Glucose POC) 126 mg/dL 70-115 H If you consi joni your patient critically ill, the Christopher-Accu Check Infrom II meter should not be used for Glucose determination. Draw a venous Glucose and send to the main Lab for analysis. POC [id number] 11:41:56* Test Item Value Reference Range Interpretation Comme nts Glucose POC (test code = Glucose POC) 93 mg/dL 70-115 If you consi joni your patient critically ill, the Christopher-Accu Check Infrom II meter should not be used for Glucose determination. Draw a venous Glucose and send to the main Lab for analysis. POC [id number] 07:51:27* Test Item Value Reference Range Interpretation Comme nts Glucose POC (test code = Glucose POC) 117 mg/dL 70-115 H If you consi joni your patient critically ill, the Christopher-Accu Check Infrom II meter should not be used for Glucose determination. Draw a venous Glucose and send to the main Lab for analysis. POC [id number] 22:20:22* Test Item Value Reference Range Interpretation Comme nts Glucose POC (test code = Glucose POC) 102 mg/dL 70-115 If you consi joni your patient critically ill, the Christopher-Accu Check Infrom II meter should not be used for Glucose determination. Draw a venous Glucose and send to the main Lab for analysis. POC [id number] 17:45:16* Test Item Value Reference Range Interpretation Comme nts Glucose POC (test code = Glucose POC) 119 mg/dL 70-115 H If you consi joni your patient critically ill, the Christopher-Accu Check Infrom II meter should not be used for Glucose determination. Draw a venous Glucose and send to the main Lab for analysis. C. difficile [id number] 14:58:07* Test Item Value Reference Range Interpretation Comme nts C. difficile NAAT (test code = C. difficile NAAT) Positive Negative A Contact isolatio n reccommendedResults called to and read back by: Candelaria Pizano RN at 05/21/2019 14:55:58 CDT/CL Internal QC (test code = Internal QC) Acceptable CT Abdomen and Pelvis w/ [id number] 13:32:07Patient: JEANNETTE THRASHER Date/Time05/21/2019 13:10 CDTReason for ExamDiarrheaReportCT OF THE ABDOMEN AND PELVIS WITH CONTRASTLocation R 16HISTORY: DiarrheaTECHNIQUE:5 millimeterscontrast enhanced axial images of the abdomen and pelvis provided in venous delays. PO contrast wasadministered. The images were reviewed in soft tissue, lung and bone windows. Sagittal and coronal images were reformatted. One or more the following dose reduction techniques is utilized: Use of iterative reconstruction, automated exposure control, adjustment of the mAs and Kv for the patient's weight. DLP 457.64 mGy-cm.COMPARISON: None.FINDINGS:Lung Bases: Minimal dependent atelectasis. Otherwise clear.Abdomen Findings:Liver: No significant abnormality.Gallbladder: No significant abnormality.Pancreas: No significant abnormality.Spleen: No significant abnormality.Kidneys: No significant abnormality.Adrenals: No significant abnormality.Bowel: Minimal fat stranding in the descending colon, this may indicate mild changes of colitis. No significant wall thickening. No dilated bowel loops to suggest obstruction.Appendix: Well identified, contrast-filled, normal.Peritoneum: No free intra-abdominal air or fluid.Bone Windows: Bilateral hip arthroplasties. No acute or aggressive appearing osseous lesions.Vascular:No significant abnormality.Lymph Nodes:No significant abnormality.Other: Nonspecific subcutaneous fat stranding, left lower quadrant abdomen.Pelvis Findings:Bladder: No significant abnormality.Prostate: No significant abnormality.Seminal vesicles: No significant abnormality.Exam Date/Time05/21/2019 13:10 CDTReportIMPRESSION:1. Mild fat stranding around the left colon, may indicate mild inflammation in setting of mild colitis.2. No evidence of bowel obstruction or perforation. Normal appendix. Final Dictated by: MD Chetan, Kelly FDictated DT/TM: 05/21/2019 1:27 pmSigned by: MD Benton Eniola FSigned (Electronic Signature): 05/21/2019 1:32 pmCT Brain/Head w/o [id number] 13:29:43Patient: JEANNETTE THRASHER Date/Time05/21/2019 13:10 CDTReason for ExamHeadache;Pain (please specify)ReportCT head without contrast 05/21/2019 1:26 PMCLINICAL HISTORY: HeadacheTECHNIQUE: Axial noncontrast CT images through the head were obtained. This examination was performed according to our departmental dose optimization program, which includes automated exposure control, adjustment of the mA and/or kV according to patient size, and/or use of iterative reconstruction techniq ue.COMPARISON: None availableLOCATION: [id number]:There is no hemorrhage, extra-axial collection, mass, hydrocephalus, or midline shift. There is moderately advanced microvascular ischemia in the supratentorial white matter. 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 There is generalized par enchymal volume loss.The visualized paranasal sinuses and mastoid air cells are well aerated. The skull is intact.IMPRESSION:No intracranial hemorrhage or mass effect.Chronic appearing ischemic and involutional changes.If concern for acute pathology persists, further evaluation with MRI is recommended. Final Dictated by: MD Molina Timothy JDictated DT/TM: 05/21/2019 1:26 pmSigned by: MD Molina Timothy JSigned (Electronic Signature): 05/21/2019 1:29 pmPOC [id number] 10:21:00* Test Item Value Reference Range Interpretation Comme nts Glucose POC (test code = Glucose POC) 131 mg/dL 70-115 H If you consi joni your patient critically ill, the Christopher-Accu Check Infrom II meter should not be used for Glucose determination. Draw a venous Glucose and send to the main Lab for analysis. Urine [id number] 10:17:20* Test Item Value Reference Range Interpretation Comme nts ORGANISM (test code = ORGANISM) Enterobacter cloacae Amikacin (test code = Amik) S Ampicillin (test code = Amp) R Ampicillin/Sulbactam (test code = Amp/Sul) R Cefazolin (test code = Cefaz) R Cefepime (test code = Cefep) S Cefotaxime (test code = Cefo) S Ceftazidime (test code = Ceftaz) S Ceftriaxone (test code = Ceftri) S Cefuroxime (test code = Cefur) R Ciprofloxacin (test code = Cipro) S Gentamicin (test code = Gent) S Imipenem (test code = Imi) S Levofloxacin (test code = Levo) S Meropenem (test code = Gale) S Nitrofurantoin (test code = Nitro) I Piperacillin/Tazobactam (test code = Pip/Henri) S Tobramycin (test code = Tobra) S Trimethoprim/Sulfa (test code = SXT) S Final Report (test code = Final Report) >=100,000 cfu/ml Enterobacter cloacae C Urine Added by GL_SJM_UA_CUL_INDHemoglobin [id number] 07:33:43* Test Item Value Reference Range Interpretation Comme nts Hemoglobin A1c (test code = Hemoglobin A1c) 5.0 % 4.8-5.9 Non Diabetic 4.8-5.9%Diabetic <7.0% Thyroid Stimulating [id number] 05:41:45* Test Item Value Reference Range Interpretation Comme nts TSH (test code = TSH) 0.432 mIU/mL 0.270-4.200 Pro B Natriuretic [id number] 05:41:45* Test Item Value Reference Range Interpretation Comme nts NT-proBNP (test code = NT-proBNP) 1188 pg/mL 0-124 H Troponin [id number] 05:41:45* Test Item Value Reference Range Interpretation Comme nts Troponin-T (test code = Troponin-T) 17.550 ng/L 0.000-22.000 The CV of the assay at 99th percentile for both male and female patient population is < 10%. A rise and fall in SALVATORE with at least one value above the 99th percentile with clinical evidence of myocardial ischemia would support a diagnosis of AMI. A delta of at least 20% is recommended to access acute changes in results above the 99th percentile in serial measurements. Stable SALVATORE levels (<20%) delta above the 99th percentile URL would support a diagnosis of chronic myocardial injury. Urinalysis [id number] 05:28:06* Test Item Value Reference Range Interpretation Comme nts UA WBC (test code = UA WBC) 0-5 0-5 UA RBC (test code = UA RBC) None Seen 0-5 UA Bacteria (test code = UA Bacteria) Many A UA Squam Epithelial (test co de = UA Squam Epithelial) 0-5 Lactic Acid, Plasma (Venous)2019-05-21 05:09:15* Test Item Value Reference Range Interpretation Comme nts Lactic Acid, Plasma (Venous) (test code = Lactic Acid, Plasma (Venous)) 1.9 mmol/L 0.5-1.9 Lipase [id number] 05:07:40* Test Item Value Reference Range Interpretation Comme nts Lipase Level (test code = Li pase Level) 41 U/L 13-60 Lipid [id number] 05:07:40* Test Item Value Reference Range Interpretation Comme nts Cholesterol Total (test code = Cholesterol Total) 191 mg/dL 0-200 RISK OF HEART DISEASEPublished by Citizen [place] Heart Association Analyte Optimal Borderline Increased RiskCHOL <200 200-239 >240TRIG <150 150-199 >200HDL Male >60 <40HDL Female >60 <50LDL <100 130-159 >160LDL Near optimal is 100-129 Triglycerides (test code = Triglycerides) 307 mg/dL 9-200 H HDL (test code = HDL) 59 mg/dL 40-60 LDL (test code = LDL) 70 mg/dL 0-130 The equation being used in this calculation is LDL = (Chol - HDL) - (Trig / 5) VLDL (test code = VLDL) 61 mg/dL 5-40 H The equation javad ng used in this calculation is VLDL = Trig / 5 Chol/HDL (test code = Chol/HDL) 3.2 ratio 0.0-5.0 LDL/HDL Ratio (test code = LDL/HDL Ratio) 1 N The equati on being used in this calculation is LDL/HDL Ratio=LDL Calc/HDL Chol Magnesium [id number] 05:07:40* Test Item Value Reference Range Interpretation Comme nts Magnesium Level (test code = Magnesium Level) 1.8 mg/dL 1.7-2.5 [id number] 05:07:39* Test Item Value Reference Range Interpretation Comme nts Amylase Level (test code = A mylase Level) 28 28-100 Comprehensive Metabolic [id number] 05:07:39* Test Item Value Reference Range Interpretation Comme nts Sodium Level (test code = Sodium Level) 139.0 mmol/L 135.0-145.0 Potassium Level (test code = Potassium Level) 3.2 mmol/L 3.5-5.1 L Chloride Level (test code = Chloride Level) 101 mmol/L 98-105 CO2 (test code = CO2) 26 mmol/L 22-29 Anion Gap (test code = Anion Gap) 12 mmol/L 7-16 BUN (test code = BUN) 18.80 mg/dL 6.00-20.00 Creatinine Level (test code = Creatinine Level) 0.80 mg/dL 0.70-1.20 BUN/Creat Ratio (test code = BUN/Creat Ratio) 24 N Glucose Level (test code = Glucose Level) 176 mg/dL 70-115 H Calcium Level (test code = Calcium Level) 8.4 mg/dL 8.3-10.5 Alk Phos (test code = Alk Phos) 149 U/L 40-129 H Bilirubin Total (test code = Bilirubin Total) 0.6 mg/dL 0.1-0.9 Albumin Level (test code = Albumin Level) 3.7 g/dL 3.5-5.2 Protein Total (test code = Protein Total) 6.4 g/dL 6.4-8.3 ALT (test code = ALT) 108 U/L 1-41 H AST (test code = AST) 458 U/L 1-40 H Globulin (test code = Globulin) 2.7 g/dL 2.9-3.1 L A/G Ratio (test code = A/G Ratio) 1.4 ratio N eGFR AA (test code = eGFR AA) >60 mL/min/1.73 m2 N eGFR (estimated Glomerular Filtration Rate) is an estimated value, calculated from the patient's serum creatinine using the MDRD equation. It is NOT the patient's actual GFR. The eGFR provides a more clinically useful measure of kidney disease than serum creatinine alone.This calculation takes sex and race into account, if the information is provided. If the race is not provided, and the patient is -Citizen Of [place], multiply by 1.212. If sex is not provided, and the patient is female, multiply by 0.742. Results for patients <18 years of age have not been validated by the MDRD study and should be interpreted with caution. eGFR Result Interpretation:eGFR > or = 60 is in the Normal RangeeGFR < 60 may mean kidney diseaseeGFR < 15 may mean kidney failure Ranges recommended by the National Kidney Foundation, http://nkdep.nih.gov Comprehensive Metabolic [id number] 05:07:39* Test Item Value Reference Range Interpretation Comme nts Sodium Level (test code = Sodium Level) 139.0 mmol/L 135.0-145.0 Potassium Level (test code = Potassium Level) 3.2 mmol/L 3.5-5.1 L Chloride Level (test code = Chloride Level) 101 mmol/L 98-105 CO2 (test code = CO2) 26 mmol/L 22-29 Anion Gap (test code = Anion Gap) 12 mmol/L 7-16 BUN (test code = BUN) 18.80 mg/dL 6.00-20.00 Creatinine Level (test code = Creatinine Level) 0.80 mg/dL 0.70-1.20 BUN/Creat Ratio (test code = BUN/Creat Ratio) 24 N Glucose Level (test code = Glucose Level) 176 mg/dL 70-115 H Calcium Level (test code = Calcium Level) 8.4 mg/dL 8.3-10.5 Alk Phos (test code = Alk Phos) 149 U/L 40-129 H Bilirubin Total (test code = Bilirubin Total) 0.6 mg/dL 0.1-0.9 Albumin Level (test code = Albumin Level) 3.7 g/dL 3.5-5.2 Protein Total (test code = Protein Total) 6.4 g/dL 6.4-8.3 ALT (test code = ALT) 108 U/L 1-41 H AST (test code = AST) 458 U/L 1-40 H Globulin (test code = Globulin) 2.7 g/dL 2.9-3.1 L A/G Ratio (test code = A/G Ratio) 1.4 ratio N eGFR AA (test code = eGFR AA) >60 mL/min/1.73 m2 N eGFR (estimated Glomerular Filtration Rate) is an estimated value, calculated from the patient's serum creatinine using the MDRD equation. It is NOT the patient's actual GFR. The eGFR provides a more clinically useful measure of kidney disease than serum creatinine alone.This calculation takes sex and race into account, if the information is provided. If the race is not provided, and the patient is -Citizen Of [place], multiply by 1.212. If sex is not provided, and the patient is female, multiply by 0.742. Results for patients <18 years of age have not been validated by the MDRD study and should be interpreted with caution. eGFR Result Interpretation:eGFR > or = 60 is in the Normal RangeeGFR < 60 may mean kidney diseaseeGFR < 15 may mean kidney failure Ranges recommended by the National Kidney Foundation, http://nkdep.nih.gov Creatine [id number] 05:07:39* Test Item Value Reference Range Interpretation Comme nts CK (test code = CK) 397 U/L 39-308 H Comprehensive Metabolic [id number] 05:07:39* Test Item Value Reference Range Interpretation Comme nts Sodium Level (test code = Sodium Level) 139.0 mmol/L 135.0-145.0 Potassium Level (test code = Potassium Level) 3.2 mmol/L 3.5-5.1 L Chloride Level (test code = Chloride Level) 101 mmol/L 98-105 CO2 (test code = CO2) 26 mmol/L 22-29 Anion Gap (test code = Anion Gap) 12 mmol/L 7-16 BUN (test code = BUN) 18.80 mg/dL 6.00-20.00 Creatinine Level (test code = Creatinine Level) 0.80 mg/dL 0.70-1.20 BUN/Creat Ratio (test code = BUN/Creat Ratio) 24 N Glucose Level (test code = Glucose Level) 176 mg/dL 70-115 H Calcium Level (test code = Calcium Level) 8.4 mg/dL 8.3-10.5 Alk Phos (test code = Alk Phos) 149 U/L 40-129 H Bilirubin Total (test code = Bilirubin Total) 0.6 mg/dL 0.1-0.9 Albumin Level (test code = Albumin Level) 3.7 g/dL 3.5-5.2 Protein Total (test code = Protein Total) 6.4 g/dL 6.4-8.3 ALT (test code = ALT) 108 U/L 1-41 H AST (test code = AST) 458 U/L 1-40 H Globulin (test code = Globulin) 2.7 g/dL 2.9-3.1 L A/G Ratio (test code = A/G Ratio) 1.4 ratio N eGFR AA (test code = eGFR AA) >60 mL/min/1.73 m2 N eGFR (estimated Glomerular Filtration Rate) is an estimated value, calculated from the patient's serum creatinine using the MDRD equation. It is NOT the patient's actual GFR. The eGFR provides a more clinically useful measure of kidney disease than serum creatinine alone.This calculation takes sex and race into account, if the information is provided. If the race is not provided, and the patient is -Citizen [place], multiply by 1.212. If sex is not provided, and the patient is female, multiply by 0.742. Results for patients <18 years of age have not been validated by the MDRD study and should be interpreted with caution. eGFR Result Interpretation:eGFR > or = 60 is in the Normal RangeeGFR < 60 may mean kidney diseaseeGFR < 15 may mean kidney failure Ranges recommended by the National Kidney Foundation, http://nkdep.nih.gov eGFR Non-AA (test code = eGFR Non-AA) >60.00 mL/min/1.73 m2 N eGFR (estimated Glomerular Filtration Rate) is an estimated value, calculated from the patient's serum creatinine using the MDRD equation. It is NOT the patient's actual GFR. The eGFR provides a more clinically useful measure of kidney disease than serum creatinine alone.This calculation takes sex and race into account, if the information is provided. If the race is not provided, and the patient is -Citizen [place], multiply by 1.212. If sex is not provided, and the patient is female, multiply by 0.742. Results for patients <18 years of age have not been validated by the MDRD study and should be interpreted with caution. eGFR Result Interpretation:eGFR > or = 60 is in the Normal RangeeGFR < 60 may mean kidney diseaseeGFR < 15 may mean kidney failure Ranges recommended by the National Kidney Foundation, http://nkdep.nih.gov Prothrombin Time and [id number] 04:54:34* Test Item Value Reference Range Interpretation Comme nts Prothrombin Time (test code = Prothrombin Time) 9.6 seconds 9.8-13.4 L INR (test code = INR) 0.8 ratio 0.6-1.2 Urinalysis with Culture, if [id number] 04:49:44* Test Item Value Reference Range Interpretation Comme nts UA Color (test code = UA Color) YELLO Yellow UA Appear (test code = UA Appear) CLEAR Clear UA pH (test code = UA pH) 6.5 UA Spec Grav (test code = UA Spec Grav) 1.010 1.001-1.035 UA Glucose (test code = UA Glucose) NEG Negative UA Bili (test code = UA Bili) NEG Negative UA Ketones (test code = UA Ketones) NEG Negative UA Blood (test code = UA Blood) 25 cells/mcL Negative A UA Protein (test code = UA Protein) 75 mg/dL Negative A UA Urobilinogen (test code = UA Urobilinogen) 0.2 mg/dL N UA Nitrite (test code = UA Nitrite) POS Negative A UA Leuk Est (test code = UA Leuk Est) 25 cells/mcL Negative A UA Micro Ind? (test code = UA Micro Ind?) Indicated Not Indicated A Result cre ated by rule GL_SJM_UA_MICRO_IN D POC [id number] 21:45:21* Test Item Value Reference Range Interpretation Comme nts Glucose POC (test code = Glucose POC) 170 mg/dL 70-115 H If you consi joni your patient critically ill, the Christopher-Accu Check Infrom II meter should not be used for Glucose determination. Draw a venous Glucose and send to the main Lab for analysis. POC [id number] 19:00:22* Test Item Value Reference Range Interpretation Comme nts Glucose POC (test code = Glucose POC) 244 mg/dL 70-115 H If you consi joni your patient critically ill, the Christopher-Accu Check Infrom II meter should not be used for Glucose determination. Draw a venous Glucose and send to the main Lab for analysis. Lactic Acid, Plasma (Venous)2019-05-20 16:16:34* Test Item Value Reference Range Interpretation Comme nts Lactic Acid, Plasma (Venous) (test code = Lactic Acid, Plasma (Venous)) 8.3 mmol/L 0.5-1.9 Critical results called to Samanta Ibrahim at 05/20/2019 16:16:27 CDT by ngozi. Read back and verified? yes Blood [id number] 15:01:57No growth at 5 days.Urinalysis Microscopic 2019-05-20 12:14:47* Test Item Value Reference Range Interpretation Comme nts UA WBC (test code = UA WBC) 6-10 0-5 A UA RBC (test code = UA RBC) 6-10 0-5 A UA Bacteria (test code = UA Bacteria) Many A UA Squam Epithelial (test co de = UA Squam Epithelial) 6-10 A POC [id number] 12:13:00* Test Item Value Reference Range Interpretation Comme nts pH Art (test code = pH Art) 7.28 7.35-7.45 L pH Temp Kevin Art (test code = pH Temp Kevin Art) 7.28 N pCO2 Art (test code = pCO2 Art) 26 mmHg 35-45 L pCO2 Temp Kevin Art (test cod e = pCO2 Temp Kevin Art) 26 mmHg N pO2 Art (test code = pO2 Art) 79 mmHg 80-100 L pO2 Temp Kevin Art (test code = pO2 Temp Kevin Art) 79 mmHg N ctHb Art (test code = ctHb Art) 11.7 g/dL 12.2-17.4 L O2 Sat Art (test code = O2 S at Art) 96.8 % 80.0-100.0 FO2Hb Art (test code = FO2Hb Art) 93.7 % 0.0-100.0 FCOHb Art (test code = FCOHb Art) 1.6 % 0.0-20.0 FMetHb Art (test code = FMet Hb Art) 1.6 % 0.0-20.0 HCO3 Art (test code = HCO3 Art) 12.1 mmol/L 22.0-26.0 L Hct Art (test code = Hct Art) 36 % 34-52 Na Art (test code = Na Art) 135 mmol/L 135-145 K Art (test code = K Art) 4.5 mmol/L 3.5-4.5 iCa Art (test code = iCa Art) 0.96 mmol/L 1.00-1.50 L Cl Art (test code = Cl Art) 101 mmol/L 95-105 Glu Art (test code = Glu Art) 321 mg/dL 75-115 H Base Excess Arterial (test c ode = Base Excess Arterial) -13.1 N FiO2 Art (test code = FiO2 Art) 21 % N Lactate Art (test code = [place] Art) 6.7 mmol/L 0.5-2.2 L Draw Site (test code = Draw Site) Radial. L N XR Chest 1 View [id number] 12:07:02Patient: JEANNETTE THRASHER Date/Time05/20/2019 11:50 CDTReason for ExamCongestion ReportLOCATION: [id number] VIEWINDICATION: CongestionCOMPARISON: None availableFINDINGS: The lungs are clear and well inflated. No pleural effusion or pneumothorax. The cardiomediastinal silhouette is unremarkable. The bony thorax is intact.Mild dextroscoliosis at the lower T-spine.IMPRESSION:No acute cardiopulmonary findings. Final Dictated by: MD Chetan, Kelly FDictated DT/TM: 05/20/2019 12:06 pmSigned by: MD Chetan, Kelly FSigned (Electronic Signature): 05/20/2019 12:07 pmLactic Acid, Plasma (Venous)2019-05-20 12:06:21* Test Item Value Reference Range Interpretation Comme nts Lactic Acid, Plasma (Venous) (test code = Lactic Acid, Plasma (Venous)) 9.4 mmol/L 0.5-1.9 Critical results called to Gabbi Pereira at 05/20/2019 12:06:12 CDT by MAGUI. Read back and verified? yes Urinalysis with Culture, if [id number] 12:05:14* Test Item Value Reference Range Interpretation Comme nts UA Color (test code = UA Color) YELLO Yellow UA Appear (test code = UA Appear) SCLD Clear A UA pH (test code = UA pH) 5 N UA Spec Grav (test code = UA Spec Grav) 1.016 1.001-1.035 UA Glucose (test code = UA Glucose) NEG Negative UA Bili (test code = UA Bili) 1 mg/dL Negative A UA Ketones (test code = UA Ketones) 15 mg/dL Negative A UA Blood (test code = UA Blood) 250 cells/mcL Negative A UA Protein (test code = UA Protein) 75 mg/dL Negative A UA Urobilinogen (test code = UA Urobilinogen) 0.2 mg/dL N UA Nitrite (test code = UA Nitrite) NEG Negative UA Leuk Est (test code = UA Leuk Est) NEG Negative UA Micro Ind? (test code = UA Micro Ind?) Indicated Not Indicated A Result cre ated by rule GL_SJM_UA_MICRO_IN D Drugs of Abuse Urine [id number] 12:00:45* Test Item Value Reference Range Interpretation Comme nts Amphetamine Screen Ur (test code = Amphetamine Screen Ur) Negative Negative For diagnostic purposes only. Positive results should always be assessed in conjunction with a patient's medical history. Barbiturate Screen Ur (test code = Barbiturate Screen Ur) Negative Negative Benzodiazepines Ur (test code = Benzodiazepines Ur) POSITIVE Negative A Cocaine Screen Ur (test code = Cocaine Screen Ur) Negative Negative U Methadone (test code = U Methadone) Negative Negative Opiate Screen Ur (test code = Opiate Screen Ur) Negative Negative U PCP Scrn (test code = U PCP Scrn) Negative Negative U Propoxyphene (test code = U Propoxyphene) Negative Negative Cannabinoid Screen Ur (test code = Cannabinoid Screen Ur) Negative Negative POC [id number] 10:36:51* Test Item Value Reference Range Interpretation Comme nts pH Art (test code = pH Art) 7.06 7.35-7.45 L pH Temp Kevin Art (test code = pH Temp Kevin Art) 7.06 N pCO2 Art (test code = pCO2 Art) 19 mmHg 35-45 L pCO2 Temp Kevin Art (test cod e = pCO2 Temp Kevin Art) 19 mmHg N pO2 Art (test code = pO2 Art) 108 mmHg 80-100 L pO2 Temp Kevin Art (test code = pO2 Temp Kevin Art) 108 mmHg N ctHb Art (test code = ctHb Art) 12.4 g/dL 12.2-17.4 O2 Sat Art (test code = O2 S at Art) 97.5 % 80.0-100.0 FO2Hb Art (test code = FO2Hb Art) 94.4 % 0.0-100.0 FCOHb Art (test code = FCOHb Art) 1.2 % 0.0-20.0 FMetHb Art (test code = FMet Hb Art) 2.0 % 0.0-20.0 HCO3 Art (test code = HCO3 Art) 5.4 mmol/L 22.0-26.0 L Hct Art (test code = Hct Art) 38 % 34-52 Na Art (test code = Na Art) 140 mmol/L 135-145 K Art (test code = K Art) 5.0 mmol/L 3.5-4.5 H iCa Art (test code = iCa Art) 1.02 mmol/L 1.00-1.50 Cl Art (test code = Cl Art) 103 mmol/L 95-105 Glu Art (test code = Glu Art) 125 mg/dL 75-115 H Base Excess Arterial (test c ode = Base Excess Arterial) -23.2 N FiO2 Art (test code = FiO2 Art) 21 % N Lactate Art (test code = [place] Art) 12.3 mmol/L 0.5-2.2 L Draw Site (test code = Draw Site) Radial. L N Comprehensive Metabolic [id number] 10:24:56* Test Item Value Reference Range Interpretation Comme nts Sodium Level (test code = Sodium Level) 138.0 mmol/L 135.0-145.0 Potassium Level (test code = Potassium Level) 4.9 mmol/L 3.5-5.1 Chloride Level (test code = Chloride Level) 87 mmol/L 98-105 L CO2 (test code = CO2) 6 mmol/L 22-29 Critical results called to osmar haley at 05/20/2019 10:05:56 CDT by elizabeth. Read back and verified? yes Anion Gap (test code = Anion Gap) 45 mmol/L 7-16 H BUN (test code = BUN) 41.20 mg/dL 6.00-20.00 H Creatinine Level (test code = Creatinine Level) 2.90 mg/dL 0.70-1.20 H BUN/Creat Ratio (test code = BUN/Creat Ratio) 14 N Glucose Level (test code = Glucose Level) 117 mg/dL 70-115 H Calcium Level (test code = Calcium Level) 7.9 mg/dL 8.3-10.5 L Alk Phos (test code = Alk Phos) 162 U/L 40-129 H Bilirubin Total (test code = Bilirubin Total) 0.4 mg/dL 0.1-0.9 Albumin Level (test code = Albumin Level) 4.4 g/dL 3.5-5.2 Protein Total (test code = Protein Total) 7.4 g/dL 6.4-8.3 ALT (test code = ALT) 107 U/L 1-41 H AST (test code = AST) >700 U/L 1-40 H Globulin (test code = Globulin) 3.0 g/dL 2.9-3.1 A/G Ratio (test code = A/G Ratio) 1.5 ratio N eGFR AA (test code = eGFR AA) 28 mL/min/1.73 m2 N eGFR (estimated Glomerular Filtration Rate) is an estimated value, calculated from the patient's serum creatinine using the MDRD equation. It is NOT the patient's actual GFR. The eGFR provides a more clinically useful measure of kidney disease than serum creatinine alone.This calculation takes sex and race into account, if the information is provided. If the race is not provided, and the patient is -Citizen Of [place], multiply by 1.212. If sex is not provided, and the patient is female, multiply by 0.742. Results for patients <18 years of age have not been validated by the MDRD study and should be interpreted with caution. eGFR Result Interpretation:eGFR > or = 60 is in the Normal RangeeGFR < 60 may mean kidney diseaseeGFR < 15 may mean kidney failure Ranges recommended by the National Kidney Foundation, http://nkdep.nih.gov eGFR Non-AA (test code = eGFR Non-AA) 22.88 mL/min/1.73 m2 N eGFR (estimated Glomerular Filtration Rate) is an estimated value, calculated from the patient's serum creatinine using the MDRD equation. It is NOT the patient's actual GFR. The eGFR provides a more clinically useful measure of kidney disease than serum creatinine alone.This calculation takes sex and race into account, if the information is provided. If the race is not provided, and the patient is -Citizen Of [place], multiply by 1.212. If sex is not provided, and the patient is female, multiply by 0.742. Results for patients <18 years of age have not been validated by the MDRD study and should be interpreted with caution. eGFR Result Interpretation:eGFR > or = 60 is in the Normal RangeeGFR < 60 may mean kidney diseaseeGFR < 15 may mean kidney failure Ranges recommended by the National Kidney Foundation, http://nkdep.nih.gov Manual [id number] 10:24:56* Test Item Value Reference Range Interpretation Comme nts Segs Man (test code = Segs Man) 75.0 % 36.0-70.0 H Band Man (test code = Band Man) 11.0 % 0.0-6.0 H Lymph Man (test code = Lymph Man) 8.0 % 12.0-44.0 L Monocyte Man (test code = Monocyte Man) 5.0 % 0.0-11.0 Eos Man (test code = Eos Man) 0.0 % 0.0-7.0 Basophil Man (test code = Basophil Man) 1.0 0.0-2.0 Neut Man Abs (test code = Neut Man Abs) 12.0 x10 1.6-7.4 H Lymph Man Abs (test code = Lymph Man Abs) 1.1 x10 0.5-4.6 Crowley Man Abs (test code = Crowley Man Abs) 0.7 x10 0.0-1.2 Eos Man Abs (test code = Eos Man Abs) 0.00 x10 0.00-0.74 Baso Man Abs (test code = Baso Man Abs) 0.14 x10 0.00-0.21 RBC Morph (test code = RBC Morph) As Indicated Normal A Hypochromia (test code = Hypochromia) None Seen None Seen Anisocyte (test code = Anisocyte) 1+ None Microcyte (test code = Microcyte) None Seen None Seen Macrocyte (test code = Macrocyte) 1+ None Seen Poik (test code = Poik) None Seen None Seen Polychrom (test code = Polychrom) None Seen None Seen Acanthocyte (test code = Acanthocyte) None Seen None Seen Baso Stippling RBC (test cod e = Baso Stippling RBC) None Seen None Seen Plt Estimation (test code = Plt Estimation) slight decrease Comprehensive Metabolic [id number] 10:24:56* Test Item Value Reference Range Interpretation Comme nts Sodium Level (test code = Sodium Level) 138.0 mmol/L 135.0-145.0 Potassium Level (test code = Potassium Level) 4.9 mmol/L 3.5-5.1 Chloride Level (test code = Chloride Level) 87 mmol/L 98-105 L CO2 (test code = CO2) 6 mmol/L 22-29 Critical results called to osmar haley at 05/20/2019 10:05:56 CDT by . Read back and verified? yes Anion Gap (test code = Anion Gap) 45 mmol/L 7-16 H BUN (test code = BUN) 41.20 mg/dL 6.00-20.00 H Creatinine Level (test code = Creatinine Level) 2.90 mg/dL 0.70-1.20 H BUN/Creat Ratio (test code = BUN/Creat Ratio) 14 N Glucose Level (test code = Glucose Level) 117 mg/dL 70-115 H Calcium Level (test code = Calcium Level) 7.9 mg/dL 8.3-10.5 L Alk Phos (test code = Alk Phos) 162 U/L 40-129 H Bilirubin Total (test code = Bilirubin Total) 0.4 mg/dL 0.1-0.9 Albumin Level (test code = Albumin Level) 4.4 g/dL 3.5-5.2 Protein Total (test code = Protein Total) 7.4 g/dL 6.4-8.3 ALT (test code = ALT) 107 U/L 1-41 H AST (test code = AST) 815 U/L 1-40 N notified osmar freedman 05/20/2019 12:46:14 CDT accidently verified by kayla tech Globulin (test code = Globulin) 3.0 g/dL 2.9-3.1 A/G Ratio (test code = A/G Ratio) 1.5 ratio N eGFR AA (test code = eGFR AA) 28 mL/min/1.73 m2 N eGFR (estimated Glomerular Filtration Rate) is an estimated value, calculated from the patient's serum creatinine using the MDRD equation. It is NOT the patient's actual GFR. The eGFR provides a more clinically useful measure of kidney disease than serum creatinine alone.This calculation takes sex and race into account, if the information is provided. If the race is not provided, and the patient is -Citizen Of [place], multiply by 1.212. If sex is not provided, and the patient is female, multiply by 0.742. Results for patients <18 years of age have not been validated by the MDRD study and should be interpreted with caution. eGFR Result Interpretation:eGFR > or = 60 is in the Normal RangeeGFR < 60 may mean kidney diseaseeGFR < 15 may mean kidney failure Ranges recommended by the National Kidney Foundation, http://nkdep.nih.gov eGFR Non-AA (test code = eGFR Non-AA) 22.88 mL/min/1.73 m2 N eGFR (estimated Glomerular Filtration Rate) is an estimated value, calculated from the patient's serum creatinine using the MDRD equation. It is NOT the patient's actual GFR. The eGFR provides a more clinically useful measure of kidney disease than serum creatinine alone.This calculation takes sex and race into account, if the information is provided. If the race is not provided, and the patient is -Citizen Of [place], multiply by 1.212. If sex is not provided, and the patient is female, multiply by 0.742. Results for patients <18 years of age have not been validated by the MDRD study and should be interpreted with caution. eGFR Result Interpretation:eGFR > or = 60 is in the Normal RangeeGFR < 60 may mean kidney diseaseeGFR < 15 may mean kidney failure Ranges recommended by the National Kidney Foundation, http://nkdep.nih.gov Creatine [id number] 10:01:34* Test Item Value Reference Range Interpretation Comme nts CK (test code = CK) 154 U/L 39-308 Magnesium [id number] 10:01:34* Test Item Value Reference Range Interpretation Comme nts Magnesium Level (test code = Magnesium Level) 2.4 mg/dL 1.7-2.5 IG [id number] 09:52:39* Test Item Value Reference Range Interpretation Comme nts IG (test code = IG) 0.6 % 0.0-5.0 IG Abs (test code = IG Abs) 0 x10 N Complete Blood Count with [id number] 09:52:38* Test Item Value Reference Range Interpretation Comme nts WBC (test code = WBC) 14.0 x10 4.4-10.5 H RBC (test code = RBC) 3.80 x10 4.10-5.70 L Hgb (test code = Hgb) 13.5 g/dL 13.4-17.4 MCV (test code = MCV) 110.30 fL 80.00-100.00 H Hct (test code = Hct) 41.9 % 38.7-52.0 MCHC (test code = MCHC) 32.20 g/dL 32.00-37.50 RDW CV (test code = RDW CV) 16.0 % 11.5-14.5 H MCH (test code = MCH) 35.5 pg 27.0-32.5 H Platelets (test code = Platelets) 112.0 x10 140.0-440.0 L MPV (test code = MPV) 8.6 fL N Slide Review (test code = Slide Review) Manual Auto A Result crea keturah by [email or web address] [id number] nRBC (test code = nRBC) 0 N NRBC Abs (test code = NRBC Abs) 0.02 x10 N Pos Diff XN (test code = Pos Diff XN) A N Pos Morph XN (test code = Pos Morph XN) A N IPF (test code = IPF) 0 % N"
[2023-12-25] MEDS ORDERED: ONDANSETRON 4 MG/2 ML VIAL ONE (06:25)
[2023-12-25] MEDS ORDERED: LORazepam 2 MG/ML VIAL ONE (06:25)
[2023-12-25] MEDS ORDERED: THIAMINE 200 MG/2 ML INJ ONE (06:26)
[2023-12-25] MEDS ORDERED: chlordiazePOXIDE HCl 25 MG CAP ONE (06:26)
[2023-12-25] MEDS ORDERED: NA CHLORIDE 0.9% 1,000 ML ONE (06:27)
[2023-12-25] MEDS ORDERED: MULTIVITAMINS 10 ML VIAL (INJ) IV ONE (06:30)
[2023-12-25 06:45] LABS: Absolute Lymphocytes (CBC) 0.6 K/uL (0.7-4.9); Hematocrit 38.8 % (39.6-49.0); Lymphocytes % 18.6 % (15.3-44.8); MCV 93.7 fL (80-100); MPV 6.6 fL (7.6-11.3); Platelets 107 thou/uL (152-406); RBC Red Blood Cell Count 4.15 M/uL (4.33-5.43)
[2023-12-25 06:51] LABS: Protime INR 0.9
[2023-12-25 07:11] LABS: Specific Gravity 1.014 (1.005-1.030); Urine Bacteria None Seen /HPF (<20); Urine Bilirubin NEGATIVE (Negative); Urine Blood Trace (Negative); Urine Clarity Turbid (Clear); Urine Color Light-Yellow (Yellow); Urine Glucose NEGATIVE (Negative); Urine Mucus Slight /HPF (None Seen); Urine Protein NEGATIVE (Negative); Urine RBC <5 /HPF (None Seen); Urine Urobilinogen Normal (Normal); Urine pH 5.5 (5.0-7.0)
[2023-12-25 07:14] LABS: ALT/SGPT 72 U/L (16-61); AST/SGOT 68 U/L (15-37); Albumin 3.5 g/dL (3.4-5.0); Alkaline Phosphatase 67 U/L (45-117); BUN Blood Urea Nitrogen 12 mg/dL (7-18); Bicarbonate 27 mEq/L (21-32); Bilirubin Direct 0.3 mg/dL (0-0.2); Bilirubin Indirect, Calculated 0.3 mg/dL (0.2-0.8); Bilirubin Total 0.6 mg/dL (0.2-1.0); Glomerular Filtration Rate 75 ml/min (=/>90); Glucose Level 110 mg/dL (74-106); Protein, Total 7.6 g/dL (6.4-8.2); Sodium Level 136 mEq/L (136-145)
[2023-12-25 07:15] LABS: Potassium 2.6 mEq/L (3.5-5.1)
[2023-12-25 07:19] LABS: Barbiturates NEGATIVE (NEGATIVE); Benzodiazepines NEGATIVE (NEGATIVE); Cocaine NEGATIVE (NEGATIVE); METHAMPHETAM NEGATIVE (NEGATIVE); Methadone NEGATIVE (NEGATIVE); Opiates NEGATIVE (NEGATIVE); Phencyclidine NEGATIVE (NEGATIVE); THC Cannibis NEGATIVE (NEGATIVE)
--- NOTE | 2023-12-25 07:27 | EDPHYS ---
Physician Documentation [facility] Name: Melchor Min Age: 58 yrs Sex: Male : 1965 Arrival Date: 12/25/2023 Time: 06:19 Bed 6 Private MD: ED Physician Carloz Fuchs HPI: 12/25 06:23 This 58 yrs old Male presents to ER via Unassigned with complaints of Altered sp4 Mental Status. 06:23 58-year-old male, history of heavy alcohol use for years drinks and 1/5 of vodka abuse sp4 daily presents with tremors and also hallucinations. Patient has stopped drinking 4 days ago and since then has been feeling unwell. Patient reports hallucinations delusional ideas of poisoning with strychnine . Also report of vomiting and diarrhea. Patient arrived with EMS he states he would like to proceed with sober living. . Historical: - Allergies: 06:54 No Known Allergies; km8 - Home Meds: 06:54 None [Active]; km8 - PMHx: 06:54 Hypertensive disorder; km8 - PSHx: 06:54 hip replacements x 2; km8 - Immunization history:: Client reports having NOT received the Covid vaccine. Flu vaccine is not up to date. - Social history:: Patient/guardian denies using street drugs, IV drugs, caffeine, over the counter diet medications, tobacco products, Reports drinking alcohol heavily with last drink 3 days ago. , Smoking status: Patient denies any tobacco usage or history of. Patient/guardian denies using street drugs, stopped drinking 5th of vodka daily 3 days ago. - Family history:: not pertinent. ROS: 06:23 Constitutional: Negative for fever, chills, and weight loss, positive for tremors, sp4 positive for delusions, positive for hallucinations, positive for generalized feeling unwell, positive for diarrhea and vomiting 06:23 All other systems are negative, Exam: 06:23 Constitutional: This is a well developed, well nourished patient who is awake, alert, sp4 and in no acute distress. Head/Face: Normocephalic, atraumatic. Eyes: Pupils equal round and reactive to light, extra-ocular motions intact. Lids and lashes normal. Conjunctiva and sclera are not injected. Cornea within normal limits. Periorbital areas with no swelling, redness, or edema. ENT: Nares patent. No nasal discharge, no septal abnormalities noted. Tympanic membranes are normal and external auditory canals are clear. Oropharynx with no redness, swelling, or masses, exudates, or evidence of obstruction, uvula midline. Mucous membranes moist. Neck: Trachea midline, no thyromegaly or masses palpated, and no cervical lymphadenopathy. Supple, full range of motion without nuchal rigidity, or vertebral point tenderness. Chest/axilla: Normal chest wall appearance and motion. Nontender with no deformity. No lesions are appreciated. Cardiovascular: Regular rate and rhythm with a normal S1 and S2. No gallops, murmurs, or rubs. Normal PMI, no JVD. No pulse deficits. Respiratory: Lungs have equal breath sounds bilaterally, clear to auscultation and percussion. No rales, rhonchi or wheezes noted. No increased work of breathing, no retractions or nasal flaring. Abdomen/GI: Soft, with normal bowel sounds. No distension or tympany. No guarding or rebound. No evidence of tenderness throughout. Back: No spinal tenderness. No costovertebral tenderness. Skin: Warm, dry with normal turgor. Normal color with no rashes, no lesions, and no evidence of cellulitis. MS/ Extremity: Pulses equal, no cyanosis. Neurovascular intact. Full, normal range of motion. Neuro: Awake and alert, GCS 15, oriented to person, place, time, and situation. Cranial nerves II-XII grossly intact. Motor strength 5/5 in all extremities. Sensory grossly intact. Psych: Awake, alert, with orientation to person, place and time. Behavior, mood, and affect are within normal limits 06:27 ECG was reviewed by the Attending Physician. There is an EKG at 624 sp4 Vital Signs: 06:23 BP 166 / 99; Pulse 89; Resp 18; Temp 98.7(TE); Pulse Ox 99% on R/A; Weight 77.11 kg km8 (R); Height 5 ft. 9 in. (R); Pain 0/10; 06:45 BP 167 / 117; Pulse 86; Resp 18; Pulse Ox 98% on R/A; km8 08:30 BP 163 / 107; Pulse 82; Resp 18; Temp 98.5(O); Pulse Ox 99% on R/A; rs5 06:23 Body Mass Index 25.10 (77.11 kg, 175.26 cm) km8 06:23 Pain Scale: Adult km8 [place] Coma Score: 06:44 Eye Response: spontaneous(4). Motor Response: obeys commands(6). Verbal Response: km8 oriented(5). Total: 15. MDM: 06:22 Patient medically screened. sp4 07:04 Data reviewed: vital signs, nurses notes, EMS record, lab test result(s), EKG. sp4 Transition of care: After a detail discussion of the patient's case, care is transferred to Carloz Fuchs MD. 07:26 Differential Diagnosis: volume depletion, Electrolyte disorder, alcohol withdrawal, rn dehydration. Counseling: I had a detailed discussion with the patient and/or guardian regarding the historical points, exam findings, and any diagnostic results supporting the discharge/admit diagnosis, lab results, the need for further work-up and treatment in the hospital. Response to treatment: the patient's symptoms have mildly improved after treatment, and as a result, I will admit patient. 12/25 06:22 Order name: Acetaminophen; Complete Time: 07:18 sp4 12/25 06:22 Order name: Basic Metabolic Panel; Complete Time: 07:18 sp4 12/25 06:22 Order name: CBC with Diff; Complete Time: 06:59 sp4 12/25 06:22 Order name: ETOH Level; Complete Time: 07:13 sp4 12/25 06:22 Order name: Hepatic Function; Complete Time: 07:18 sp4 12/25 06:22 Order name: PT-INR; Complete Time: 06:59 sp4 12/25 06:22 Order name: Ptt, Activated; Complete Time: 06:59 sp4 12/25 06:22 Order name: Salicylate; Complete Time: 07:18 sp4 12/25 06:22 Order name: Urinalysis w/ reflexes; Complete Time: 07:13 sp4 12/25 06:22 Order name: Urine Drug Screen; Complete Time: 07:21 sp4 12/25 07:18 Order name: Magnesium; Complete Time: 07:45 la1 12/25 07:18 Order name: Phosphorus; Complete Time: 07:45 la1 12/25 06:22 Order name: EKG; Complete Time: 06:23 sp4 12/25 06:22 Order name: EKG - Nurse/Tech; Complete Time: 06:47 sp4 12/25 06:22 Order name: IV Saline Lock; Complete Time: 06:47 sp4 12/25 06:22 Order name: Labs collected and sent; Complete Time: 06:47 sp4 12/25 06:22 Order name: Suicide Screening ([place]); Complete Time: 06:54 sp4 EC:27 Rate is 86 beats/min. Rhythm is regular, Normal Sinus Rhythm. QRS [place] is Normal. [place] sp4 interval is normal. QRS interval is normal. QT interval is normal. No Q waves. T waves are Normal. No ST changes noted. Clinical impression: Normal ECG. Interpreted by me. Reviewed by me. Administered Medications: 06:54 Drug: Ondansetron IVP 4 mg IVP once; over 2 minutes Route: IVP; Site: left antecubital; 8 06:59 Follow up: Response: No adverse reaction [facility] 06:55 Drug: Banana Bag - (Multivitamin IV 1 amp, NS 0.9% IV 1000 ml, Thiamine IV 100 mg, km8 foLIC Acid IVPB 1 mg) IV at calculated rate once {Note: no folic acid available at this time; Dr. Renner notified and ok doing without.} Route: IV; Rate: calculated rate; Site: left antecubital; 06:55 Follow up: Rate change 125 ml/hr 8 06:56 Drug: Ativan IVP 2 mg IVP once Route: IVP; Site: left antecubital; km8 07:20 Follow up: Response: No adverse reaction; Anxiety decreased rs5 06:56 Drug: Librium - chlordiazePOXIDE PO 50 mg PO once Route: PO; km8 07:20 Follow up: Response: No adverse reaction rs5 06:56 Drug: Thiamine IV 100 mg IV at bolus once Route: IV; Rate: bolus; Site: left [facility] antecubital; 07:20 Follow up: Response: No adverse reaction rs5 07:40 Drug: Potassium Chloride IV 20 mEq IV at calculated rate once; administer over 1-2 rs5 hours Route: IV; Rate: calculated rate; Site: left antecubital; 08:01 Follow up: Response: No adverse reaction rs5 07:40 Drug: Potassium PO Effervescent Tablet 50 mEq PO once; dissolve in 4 ounces of water or rs5 juice Route: PO; 08:01 Follow up: Response: No adverse reaction rs5 Disposition Summary: 12/25/23 07:27 Hospitalization Ordered Notes: Hospitalization Status: Inpatient Admission rn Provider: Elian Fuchs rn Condition: Stable rn Problem: new rn Symptoms: have improved rn Bed/Room Type: Standard rn Location: Intensive Care Unit(12/25/23 11:44) [facility] Room Assignment: 1-(12/25/23 11:44) [facility] Diagnosis - Alcohol dependence with withdrawal delirium rn - Hypokalemia rn Forms: - Medication Reconciliation Form rn - SBAR form rn - Leadership Thank You Letter rn Signatures: Dispatcher [employer] EDMS Carloz Fuchs MD MD rn Attema, Lee, CHILD CARE CENTER ASSISTANT DIRECTOR-C CHILD CARE CENTER ASSISTANT DIRECTOR-Cla1 John Paul Benton RN RN ja1 Yaniv Dasilva RN RN rs5 Jarvis Renner MD MD sp4 Lakeisha Simms RN RN km8 Corrections: (The following items were deleted from the chart) 10:26 07:27 Telemetry/MedSurg (Inpatient) rn kamini 10:26 07:27 sudha suárez 11:44 10:26 [facility] ER HOLD kamini Roni 11:44 10:26 [facility]- [place] [id number]
--- NOTE | 2023-12-25 07:27 | ER ---
Nurse's Notes [facility] Name: Melchor Min Age: 58 yrs Sex: Male : 1965 Arrival Date: 12/25/2023 Time: 06:19 Bed 6 Private MD: Diagnosis: Alcohol dependence with withdrawal delirium;Hypokalemia Presentation: 12/25 06:23 Chief complaint: EMS states: toned out for hallucinations, numbness, and high BP; pt's km8 last drink was 3 days ago; pt was drinking a 5th of vodka or whiskey before this. Coronavirus screen: Client denies travel out of the [place] in the last 14 days. Ebola Screen: No symptoms or risks identified at this time. Initial Sepsis Screen: Does the patient meet any 2 criteria? No. Patient's initial sepsis screen is negative. Does the patient have a suspected source of infection? No. Patient's initial sepsis screen is negative. Risk Assessment: Do you want to hurt yourself or someone else? Patient reports no desire to harm self or others. Onset of symptoms was December 22, 2023. 06:23 Method Of Arrival: EMS: [facility] 06:23 Acuity: TERRY 2 8 06:23 Care prior to arrival: IV initiated. 20 GA, in the left antecubital area. km8 Triage Assessment: 06:23 General: Appears uncomfortable, Behavior is cooperative, anxious. Pain: Denies pain. km8 EENT: No signs and/or symptoms were reported regarding the EENT system. Neuro: Level of Consciousness is awake, alert, obeys commands, Oriented to person, place, time, situation, Reports numbness in right hand and left hand. Cardiovascular: Denies chest pain, shortness of breath, Capillary refill < 3 seconds Patient's skin is warm and dry. Respiratory: Airway is patent Respiratory effort is even, unlabored, Respiratory pattern is regular, symmetrical. GI: No signs and/or symptoms were reported involving the gastrointestinal system. : No signs and/or symptoms were reported regarding the genitourinary system. Derm: No signs and/or symptoms reported regarding the dermatologic system. Skin is intact, is healthy with good turgor, Skin is dry, Skin is pink, warm \\T\\ dry. normal, Skin temperature is warm. Musculoskeletal: No signs and/or symptoms reported regarding the musculoskeletal system. Range of motion: intact in all extremities. Historical: - Allergies: 06:54 No Known Allergies; 8 - Home Meds: 06:54 None [Active]; 8 - PMHx: 06:54 Hypertensive disorder; - PSHx: 06:54 hip replacements x 2; 8 - Immunization history:: Client reports having NOT received the Covid vaccine. Flu vaccine is not up to date. - Social history:: Patient/guardian denies using street drugs, IV drugs, caffeine, over the counter diet medications, tobacco products, Reports drinking alcohol heavily with last drink 3 days ago. , Smoking status: Patient denies any tobacco usage or history of. Patient/guardian denies using street drugs, stopped drinking 5th of vodka daily 3 days ago. - Family history:: not pertinent. Screenin:44 [facility] ED Fall Risk Assessment (Adult) History of falling in the last 3 months, km8 including since admission No falls in past 3 months (0 pts) Confusion or Disorientation No (0 pts) Intoxicated or Sedated Yes (3 pts) Impaired Gait No (0 pts) Mobility Assist Device Used No (0 pt) Altered Elimination No (0 pt) Score/Fall Risk Level 0 - 2 = Low Risk Oriented to surroundings, Maintained a safe environment, Educated pt \\T\\ family on fall prevention, incl call for assistance when getting out of bed, Assessed \\T\\ reinforced patient's understanding of fall precautions. Abuse screen: Denies threats or abuse. Denies injuries from another. Nutritional screening: No deficits noted. Tuberculosis screening: No symptoms or risk factors identified. 06:46 Clinical Hallie Withdrawal Assessment for Alcohol, revised (CIWA-Ar): km8 Nausea/Vomitin - Intermittent nausea with dry heaves Headache: 1 - Very mild Paroxysmal Sweats: 1 - Barely perceptible sweating, palms moist Anxiety: 4 - Moderately anxious, guarded Agitation: 1 - Somewhat more than normal activity Tremor: 4 - Moderate when client's hands extended Auditory Disturbances: 4 - Moderately severe hallucinations Visual Disturbances: 4 - Moderately severe photosensitivity Tactile Disturbances: 3 - Moderate paresthesias Orientation and Clouding of Sensorium: 1 - Oriented but cannot do serial additions Total Score: > 20: Severe Withdrawal. Assessment: 06:44 General: see triage notes/assessment. km8 06:56 Reassessment: pt denies SI or HI. 8 07:15 Reassessment: lab called to report critical potassium of 2.6 \\T\\[id number], provider notified. rs5 07:15 General: Appears in no apparent distress. comfortable, Behavior is calm, cooperative. rs5 Pain: Denies pain. Neuro: Level of Consciousness is awake, alert, obeys commands, Oriented to person, place, time, situation, Reports pt states "I am not having visual or any other sort of hallucination at this moment but I was earlier. I was seeing things that I know weren't there, I kept seeing scary cats.". Denies hallucinations. Cardiovascular: Patient's skin is warm and dry. Rhythm is regular. Respiratory: Respiratory effort is even, unlabored, Respiratory pattern is regular, symmetrical. GI: Abdomen is round non-distended, : No signs and/or symptoms were reported regarding the genitourinary system. EENT: No signs and/or symptoms were reported regarding the EENT system. Derm: Skin is intact, Skin is pink, warm \\T\\ dry. Musculoskeletal: Range of motion: intact in all extremities. 08:22 Reassessment: Patient and/or family updated on plan of care and expected duration. Pain rs5 level reassessed. Patient is alert, oriented x 3, equal unlabored respirations, skin warm/dry/pink. Patient denies pain at this time. Patient states feeling better. Vital Signs: 06:23 BP 166 / 99; Pulse 89; Resp 18; Temp 98.7(TE); Pulse Ox 99% on R/A; Weight 77.11 kg km8 (R); Height 5 ft. 9 in. (R); Pain 0/10; 06:45 BP 167 / 117; Pulse 86; Resp 18; Pulse Ox 98% on R/A; km8 08:30 BP 163 / 107; Pulse 82; Resp 18; Temp 98.5(O); Pulse Ox 99% on R/A; rs5 06:23 Body Mass Index 25.10 (77.11 kg, 175.26 cm) [facility] 06:23 Pain Scale: Adult 8 [place] Coma Score: 06:44 Eye Response: spontaneous(4). Motor Response: obeys commands(6). Verbal Response: km8 oriented(5). Total: 15. ED Course: 06:21 Patient arrived in ED. wm 06:21 Jarvis Renner MD is Attending Physician. sp4 06:23 Arm band placed on right wrist. km8 06:41 Lakeisha Simms, RN is Primary Nurse. km8 06:43 Triage completed. km8 06:44 Patient has correct armband on for positive identification. Placed in gown. Bed in low km8 position. Call light in reach. Side rails up X2. Client placed on continuous cardiac and pulse oximetry monitoring. NIBP monitoring applied. Warm blanket given. 06:44 No provider procedures requiring assistance completed. Maintain EMS IV. Dressing km8 intact. Good blood return noted. Site clean \\T\\ dry. Gauge \\T\\ site: 20 gauge left AC. Patient maintains SpO2 saturation greater than 95% on room air. 07:01 Attending Physician role handed off by Jarvis Renner MD rn 07:01 Carloz Fuchs MD is Attending Physician. rn 07:06 Urine Drug Screen Sent. km8 07:06 Urinalysis w/ reflexes Sent. km8 07:27 Elian Fuchs MD is Hospitalizing Provider. rn 08:49 Patient admitted, IV remains in place. rs5 Administered Medications: 06:54 Drug: Ondansetron IVP 4 mg IVP once; over 2 minutes Route: IVP; Site: left antecubital; km8 06:59 Follow up: Response: No adverse reaction 8 06:55 Drug: Banana Bag - (Multivitamin IV 1 amp, NS 0.9% IV 1000 ml, Thiamine IV 100 mg, km8 foLIC Acid IVPB 1 mg) IV at calculated rate once {Note: no folic acid available at this time; Dr. Renner notified and ok doing without.} Route: IV; Rate: calculated rate; Site: left antecubital; 06:55 Follow up: Rate change 125 ml/hr km8 06:56 Drug: Ativan IVP 2 mg IVP once Route: IVP; Site: left antecubital; km8 07:20 Follow up: Response: No adverse reaction; Anxiety decreased rs5 06:56 Drug: Librium - chlordiazePOXIDE PO 50 mg PO once Route: PO; km8 07:20 Follow up: Response: No adverse reaction rs5 06:56 Drug: Thiamine IV 100 mg IV at bolus once Route: IV; Rate: bolus; Site: left km8 antecubital; 07:20 Follow up: Response: No adverse reaction rs5 07:40 Drug: Potassium Chloride IV 20 mEq IV at calculated rate once; administer over 1-2 rs5 hours Route: IV; Rate: calculated rate; Site: left antecubital; 08:01 Follow up: Response: No adverse reaction rs5 07:40 Drug: Potassium PO Effervescent Tablet 50 mEq PO once; dissolve in 4 ounces of water or rs5 juice Route: PO; 08:01 Follow up: Response: No adverse reaction rs5 Medication: 06:44 VIS not applicable for this client. km8 Outcome: 07:27 Decision to Hospitalize by Provider. rn 08:49 Admitted to ER Hold. Please see [facility] for further documentation. rs5 08:49 Condition: stable 08:49 Instructed on the need for admit, Demonstrated understanding of instructions, 12:21 Patient left the ED. rs5 Signatures: Carloz Fuchs MD MD rn Marsh, Wendy wm Sotelo, Ricky, RN RN rs5 Jarvis Renner MD MD sp4 Lakeisha Simms RN RN km8 Corrections: (The following items were deleted from the chart) 07:22 07:20 General: Appears rs5 rs5 09:48 07:15 Neuro: Level of Consciousness is awake, alert, obeys commands, Oriented to rs5 person, place, time, situation, Denies hallucinations. rs5
[2023-12-25] MEDS ORDERED: KCL 20 MEQ/100 mL IVPB 100 ML IV ONE (07:41)
[2023-12-25 07:42] LABS: Magnesium 1.8 mg/dL (1.6-2.4); Phosphorus 3.5 mg/dL (2.5-4.9)
[2023-12-25] MEDS ORDERED: POTASSIUM 25 MEQ EFFERV TAB ONE (07:42)
[2023-12-25 10:07] VITALS: BMI 26.6
[2023-12-25] MEDS ORDERED: INFLUENZA VACCINE (for 6+ mo) 0.5 ML DOSE IMVAC ONE (11:00)
--- NOTE | 2023-12-25 11:34 | P.HP ---
Certification for Inpatient Patient admitted to: Inpatient With expected LOS: >2 Midnights Patient will require the following post-hospital care: None Practitioner: I am a practitioner with admitting privileges, knowledge of patient current condition, hospital course, and medical plan of care. Services: Services provided to patient in accordance with Admission requirements found in Title 42 Section 412.3 of the Code of Federal Regulations Patient History Date of Service: 12/25/23 Reason for admission: Alcohol withdrawals History of Present Illness: 58-year-old male with history of hypertension, alcohol use disorder presents emergency department chief complaint of the hallucinations, tremors, numbness and tingling to hands/feet. He reports he drinks approximately 1/5 of vodka or whiskey daily with his last drink being 3 to 4 days ago. The last 24 to 48 hours he has been experiencing tremors, visual hallucinations, diarrhea. He was evaluated in the emergency department labs are significant for white blood cell 3.1 hemoglobin 13.4 hematocrit 30.8 platelets 107 INR 0.9 potassium 2.6 magnesium 1.8 Phos 3.5 AST 68 ALT 72 UDS negative, EtOH level undetectable. Patient with significant alcohol withdrawals borderline delirium tremens, will need to be admitted to the ICU for management Allergies No Known Allergies Allergy (Unverified 07/25/21 00:06) - Past Medical/Surgical History Has patient received pneumonia vaccine in the past: Yes -: Hypertension -: Alcohol use disorder Past Surgical History: Reviewed- Non-Contributory Psychosocial/ Personal History: Lives at home with his family - Family History Family History: Reviewed- Non-Contributory - Social History Smoking Status: Never smoker Alcohol use: Yes CD- Drugs: No Caffeine use: Yes Place of Residence: Home Review of Systems 10-point ROS is otherwise unremarkable General: Weakness, Malaise Gastrointestinal: Nausea, Diarrhea Neurological: Numbness (hands/feet), Other Physical Examination - Physical Exam General: In no apparent distress, Oriented x3, Other (Somnolent, tremulous) HEENT: Atraumatic, PERRLA, Mucous membr. moist/pink Neck: Supple, 2+ carotid pulse no bruit, No LAD Respiratory: Clear to auscultation bilaterally, Normal air movement Cardiovascular: Regular rate/rhythm, Normal S1 S2 Gastrointestinal: Normal bowel sounds, No tenderness Musculoskeletal: No tenderness Integumentary: No rashes Neurological: Normal speech, Normal strength at 5/5 x4 extr, Normal tone, Normal affect - Studies Laboratory Data (last 24 hrs) 12/25/23 12/25/23 12/25/23 06:27 06:27 06:27 WBC 3.10 L Hgb 13.4 L Hct 38.8 L Plt Count 107 L PT 9.9 INR 0.90 APTT 24.5 Sodium Potassium BUN Creatinine Glucose Phosphorus 3.5 Magnesium 1.8 Total Bilirubin AST ALT Alkaline Phosphatase 12/25/23 06:27 WBC Hgb Hct Plt Count PT INR APTT Sodium 136 Potassium 2.6 L* BUN 12 Creatinine 1.14 Glucose 110 H Phosphorus Magnesium Total Bilirubin 0.6 AST 68 H ALT 72 H Alkaline Phosphatase 67 Assessment and Plan - Plan Assessment: Severe alcohol withdrawal Hypokalemia Hypertension Plan: Severe alcohol withdrawal Patient reports visualizations, is tremulous Also having nausea/vomiting/diarrhea Continue scheduled and as needed benzodiazepines Thiamine/folic acid supplementation Monitor in ICU for the next 24 hours in case of clinical deterioration Hypokalemia Replaced in ED, protocol in place Hypertension Lisinopril continued DVT PPX: Lovenox Code status: Full Discharge Plan: Home Plan to discharge in: 72 Hours - Advance Directives Does patient have a Living Will: No Does patient have a Durable POA for Healthcare: No - Code Status/Comfort Care Code Status Assessed: Yes (Full code) Critical Care: No Time Spent Managing Pts Care (In Minutes): 70
[2023-12-25] MEDS ORDERED: HYDRALAZINE HCL 20 MG/ML VIAL IV PRN (12:02)
[2023-12-25] MEDS ORDERED: SODIUM CHLORIDE 0.9% 10ML INJ IV PRN (12:02)
[2023-12-25] MEDS: ENOXAPARIN 40 MG/0.4 ML SQ SCH (12:44)
[2023-12-25] MEDS: PANTOPRAZOLE 40 MG INJ IVP SCH (12:44)
[2023-12-25] MEDS: LORazepam 2 MG/ML VIAL IV SCH (12:45)
[2023-12-25] MEDS: lisinopriL 10 MG TAB PO SCH (12:45)
[2023-12-25] MEDS: POTASSIUM 25 MEQ EFFERV TAB PO ONE (16:24)
[2023-12-26] MEDS ORDERED: LORazepam 2 MG/ML VIAL ONE (01:05)
[2023-12-26 04:33] LABS: Absolute Lymphocytes (CBC) 0.9 K/uL (0.7-4.9); Hematocrit 35.6 % (39.6-49.0); Lymphocytes % 24.5 % (15.3-44.8); MCV 95.2 fL (80-100); MPV 7.1 fL (7.6-11.3); Platelets 102 thou/uL (152-406); RBC Red Blood Cell Count 3.74 M/uL (4.33-5.43)
[2023-12-26 04:51] LABS: Albumin 2.6 g/dL (3.4-5.0); Bilirubin Total 0.5 mg/dL (0.2-1.0); Magnesium 1.8 mg/dL (1.6-2.4); Potassium 3.3 mEq/L (3.5-5.1); Protein, Total 5.9 g/dL (6.4-8.2)
[2023-12-26] MEDS ORDERED: MAGNESIUM SULFATE 1 gm IVPB 1 GM/100 ML BAG IV ONE (06:31)
[2023-12-26] MEDS ORDERED: POTASSIUM 25 MEQ EFFERV TAB ONE (06:31)
[2023-12-26] MEDS: POTASSIUM 25 MEQ EFFERV TAB PO ONE (06:32)
[2023-12-26] MEDS: MAGNESIUM SULFATE 1 gm IVPB 1 GM/100 ML BAG IV ONE (06:32)
--- NOTE | 2023-12-26 07:48 | P.PN ---
Date of Service: 12/26/23 Subjective: Improving, less tremulous Denies visual hallucinations overnight Feeling better today still some nausea ROS: 10 point ROS as noted above, otherwise negative Physical exam GEN: Alert, oriented, NAD, mildly tremulous HEENT: Normal conjunctiva, sclera anicteric CV: Regular rate and rhythm, no edema Pulm: Nonlabored respirations on room air ABD: Soft, nontender, nondistended MSK: No joint tenderness Integumentary: No rashes Neuro: Normal speech, normal affect Vitals reviewed Assessment: Severe alcohol withdrawal Hypokalemia Hypertension Plan: Severe alcohol withdrawal Improving, less tremulous, less visual hallucinations Still with some nausea, denies vomiting Switch to oral Librium, as needed IV Ativan Thiamine/folic acid supplementation Will downgrade to MedSur floor Hypokalemia protocol in place Hypertension Lisinopril continued DVT PPX: Lovenox Code status: Full Discharge Plan: Home Plan to discharge in: 24 to 48 hours Time Spent Managing Pts Care (In Minutes): 35
[2023-12-26] MEDS ORDERED: FOLIC ACID 1 MG TABLET ONE (08:22)
[2023-12-26] MEDS ORDERED: THIAMINE HCL 100 MG TABLET ONE (08:22)
[2023-12-26] MEDS: FOLIC ACID 1 MG TABLET PO SCH (08:31)
[2023-12-26] MEDS: chlordiazePOXIDE HCl 25 MG CAP PO SCH (08:31)
[2023-12-26] MEDS: THIAMINE HCL 100 MG TABLET PO SCH (08:32)
--- NOTE | 2023-12-26 14:43 | EKG ---
Test Date: 2023-12-25 Test Time: 06:24:08 Education Coordinator: DEYSI MEASUREMENT RESULTS: Intervals: Rate: 86 MA: 152 QRSD: 84 QT: 378 QTc: 452 Roy: P: 62 MA: 152 QRS: 60 T: 63 INTERPRETIVE STATEMENTS: Normal sinus rhythm Moderate voltage criteria for LVH, may be normal variant Borderline ECG Compared to ECG 07/20/2023 16:09:55 No significant changes Electronically Signed On 12-26-23 14:41:06 [employer]NEY[employer] by Bigg Chan
[2023-12-26] MEDS: LORazepam 2 MG/ML VIAL IV PRN (14:55)
[2023-12-26] MEDS: HYDROCODONE/APAP 5/325 MG TAB PO ONE (17:14)
[2023-12-26 21:21] VITALS: O2SAT 97
[2023-12-27 06:21] LABS: Hematocrit 35.5 % (39.6-49.0); Lymphocytes % 30.8 % (15.3-44.8); MCV 95.7 fL (80-100); Platelets 127 thou/uL (152-406); RBC Red Blood Cell Count 3.71 M/uL (4.33-5.43)
[2023-12-27 06:33] LABS: Albumin 2.6 g/dL (3.4-5.0); Bilirubin Total 0.4 mg/dL (0.2-1.0); Phosphorus 4.3 mg/dL (2.5-4.9); Potassium 3.7 mEq/L (3.5-5.1)
--- NOTE | 2023-12-27 07:11 | P.DS ---
Admission Date: 12/25/23 Discharge Date: 12/27/23 Disposition: ROUTINE DISCHARGE Discharge Condition: GOOD Reason for Admission: Alcohol withdrawals Brief History of Present Illness: 58-year-old male with history of hypertension, alcohol use disorder presents emergency department chief complaint of the hallucinations, tremors, numbness and tingling to hands/feet. He reports he drinks approximately 1/5 of vodka or whiskey daily with his last drink being 3 to 4 days ago. The last 24 to 48 hours he has been experiencing tremors, visual hallucinations, diarrhea. He was evaluated in the emergency department labs are significant for white blood cell 3.1 hemoglobin 13.4 hematocrit 30.8 platelets 107 INR 0.9 potassium 2.6 magnesium 1.8 Phos 3.5 AST 68 ALT 72 UDS negative, EtOH level undetectable. Patient with significant alcohol withdrawals borderline delirium tremens, will need to be admitted to the ICU for management Hospital Course: Assessment: Severe alcohol withdrawal Hypokalemia Hypertension Patient was admitted to the hospital for alcohol withdrawal syndrome, on admission he was experiencing tremors and visual hallucinations on admission. He was initially admitted to the ICU with scheduled and IV Ativan and had significant improvement. He was transition to oral Librium which he has been tolerating well, minimal fine tremors noted. Patient intends to stop drinking at discharge. New prescriptions Librium 25 mg-take 1 tablet twice daily for the next 2 days, after that take 1 tablet daily at bedtime for the next 2 days do not drink while taking this medication Continue lisinopril 10 mg by mouth daily Follow-up with your primary care doctor in 1 to 2 weeks to further discuss use of bupropion/Wellbutrin to assist with alcohol withdrawals Vital Signs/Physical Exam: Temp Pulse Resp BP Pulse Ox 97.5 F 74 18 142/82 H 96 12/27/23 04:00 12/27/23 04:00 12/27/23 04:00 12/27/23 04:00 12/27/23 04:00 General: Alert, In no apparent distress, Oriented x3 HEENT: Atraumatic, PERRLA Neck: Supple, JVD not distended Respiratory: Clear to auscultation bilaterally, Normal air movement Cardiovascular: Regular rate/rhythm, Normal S1 S2 Gastrointestinal: Normal bowel sounds Musculoskeletal: No tenderness Integumentary: No rashes Neurological: Normal speech, Normal tone Laboratory Data at Discharge: WBC 3.20 thou/uL (4.3-10.9) L 12/27/23 05:05 Hgb 12.2 g/dL (13.6-17.9) L 12/27/23 05:05 Hct 35.5 % (39.6-49.0) L 12/27/23 05:05 Plt Count 127 thou/uL (152-406) L 12/27/23 05:05 PT 9.9 SECONDS (9.5-12.5) 12/25/23 06:27 INR 0.90 12/25/23 06:27 APTT 24.5 SECONDS (24.3-36.9) 12/25/23 06:27 Sodium 138 mEq/L (136-145) 12/27/23 05:05 Potassium 3.7 mEq/L (3.5-5.1) 12/27/23 05:05 BUN 21 mg/dL (7-18) H 12/27/23 05:05 Creatinine 0.83 mg/dL (0.70-1.30) 12/27/23 05:05 Glucose 99 mg/dL (74-106) 12/27/23 05:05 Phosphorus 4.3 mg/dL (2.5-4.9) 12/27/23 05:05 Magnesium 2.0 mg/dL (1.6-2.4) 12/27/23 05:05 Total Bilirubin 0.4 mg/dL (0.2-1.0) 12/27/23 05:05 AST 30 U/L (15-37) 12/27/23 05:05 ALT 45 U/L (16-61) 12/27/23 05:05 Alkaline Phosphatase 51 U/L (45-117) 12/27/23 05:05 Home Medications: lisinopriL [Lisinopril] 10 mg PO DAILY #30 tab 12/27/23 New Medications: lisinopriL [Lisinopril] 10 mg PO DAILY #30 tab Physician Discharge Instructions: Patient was admitted to the hospital for alcohol withdrawal syndrome, on admission he was experiencing tremors and visual hallucinations on admission. He was initially admitted to the ICU with scheduled and IV Ativan and had significant improvement. He was transition to oral Librium which he has been tolerating well, minimal fine tremors noted. Patient intends to stop drinking at discharge. New prescriptions Librium 25 mg-take 1 tablet twice daily for the next 2 days, after that take 1 tablet daily at bedtime for the next 2 days do not drink while taking this medication Continue lisinopril 10 mg by mouth daily Follow-up with your primary care doctor in 1 to 2 weeks to further discuss use of bupropion/Wellbutrin to assist with alcohol withdrawals Diet: Regular Activity: Ad kameron Followup: NONE,NONE [Primary Care Provider] - 1 Week Time spent managing pt's care (in minutes): 30
[2023-12-27] MEDS ORDERED: PANTOPRAZOLE 40MG TABLET PO SCH (07:30)
[2023-12-27] MEDS ORDERED: LORazepam 2 MG/ML VIAL IV SCH (08:00)
[2023-12-27] MEDS: POTASSIUM CL SA 10 MEQ TAB PO ONE (08:27)
[2023-12-27 08:29] VITALS: BP 139/86
[2023-12-27 09:32] VITALS: TEMP 97.1
== END 2023-12-27 10:52 | disposition home or self-care (01) | DRG 897 ==
LOC: ER 06:19 → ERHOLD 07:30 → 3RD-ICU 11:54 → 4TH 12-26 11:45
PROVIDERS: ADMIT Hospitalist; ATTEND Hospitalist
DX: F10.231 Alcohol dependence with withdrawal delirium (principal); E87.6 Hypokalemia; I10 Essential (primary) hypertension; R19.7 Diarrhea, unspecified; R11.0 Nausea; R20.0 Anesthesia of skin
CPT/HCPCS: 36415; 80048; 80053; 80076; 80143; 80179; 80307; 81001; 82077; 83735; 84100; 84132; 85025; 85610; 85730; 93005; 96374; 96375; 99285; C9113; J1650; J2405; J3411; J3475; J3480; J7030

== ENCOUNTER 2024-01-15 10:11 | Observation (INO) | payer OTHER ==
--- OUTSIDE RECORDS SUMMARY | 2024-01-15 10:23 | XMS REPORT | Continuity of Care Document ---
Author Name Unknown Address [address] [place] [address]. [address] thconnect Address [address] [facility]. 1 [address] [place] [address] Care Team Providers Care Clinical Assoc Name Role Phone Mayi Roman Attending Clinician Payers Payer Name Policy Type Policy Number Effective Date Expirati on Date Source Allergies, Adverse Reactions, Alerts Allergy Name Allergy Type Status Severity Reaction(s) Onset Date Inactive Date Treating Clinician Comments Source NO KNOWN ALLERGIE S Drug Class [facility] Social History Social Habit Start Date Stop Date Quantity Comments Source Sex Assigned At [facility] Exposure to SARS-CoV-2 (event) Not sure [facility] Smoking Status Start Date Stop Date Source Unknown if ever smoked [facility] Medications Ordered Medication Name Filled Medication Name Start Date Stop Date Current Medication? Ordering Clinician Indication Dosage Frequency Signature (SIG) Comments Components Source HYDROcodone -acetaminop hen (NORCO 5) 5-325 mg tablet 1 tablet 01-07 02:45: 00 01-07 02:15 :00 No 1{tbl} 1 tablet, Oral, ONCE, 1 dose, 01/06/21 at 2045, SILVINA [facility] ketorolac (TORADOL) injection 30 mg 01-07 00:15: 00 01-06 23:19 :00 No 30mg 30 mg, Slow IV Push, ONCE, 1 dose, 01/06/21 at 1815, SILVINA
Fa culty member approving Restricted medication : MAYI [facility] traMADoL 50 mg tablet 01-06 00:00: 00 Yes [id number] 50mg Take 1 tablet by mouth every 6 (six) hours as needed for Pain (scale 7-10). Indication s: acute pain [facility] ibuprofen 600 mg tablet 01-06 00:00: 00 Yes [id number] 600mg Take 1 tablet by mouth every 6 (six) hours as needed for Pain (scale 4-6). [facility] Vital Signs Vital Name Observation Time Observation Value Comments S ource Systolic blood pressure 2021-01-07 01:00:00 148 mm[Hg] [facility] Diastolic blood pressure 2021-01-07 01:00:00 93 mm[Hg] [facility] Heart rate 2021-01-07 01:00:00 92 /min [facility] Respiratory rate 2021-01-07 01:00:00 18 /min [facility] Oxygen saturation in Arterial blood by Pulse oximetry 2021-01-07 01:00:00 97 /min [facility] Body temperature 2021-01-06 22:30:00 36.11 Brittnee [facility] Body height 2021-01-06 22:30:00 175.3 cm [facility] Body weight 2021-01-06 22:30:00 77.111 kg [facility] BMI 2021-01-06 22:30:00 25.10 kg/m2 [facility] Procedures Procedure Date / Time Performed Performing Clinicia n Source CT ABDOMEN PELVIS WO CONTRAST 2021-01-06 23:18:52 Mayi Monson [facility] COMP. METABOLIC PANEL (87130) 2021-01-06 22:44:00 Mayi Monson [facility] CBC WITH DIFF 2021-01-06 22:44:00 [facility] URINALYSIS 2021-01-06 22:44:00 [facility] NOTICE OF PRIVACY PRACTICES 2021-01-06 22:24:12 Doctor Unassigned, [place] [facility] CONSENT/REFUSAL FOR DIAGNOSIS AND TREATMENT 2021-01-06 22:19:29 Doctor Unassigned, [place] [facility] Encounters Start Date/Time End Date/Time Encounter Type Admission Type Attending Clinicians Care Facility Care Department Encounter ID Source 2021-01-06 16:24:00 2021-01-06 20:54:00 Emergency Mayi Monson [facility] [id number] [facility] 2021-01-06 16:21:00 2021-01-06 16:21:[address] [facility] ERT [id number] [facility] Results Test Description Test Time [...] Mild hepatomegaly.Preliminar y Report Dictated by Resident: Neli Leonard A Skaug, MD., have reviewed this study and agree with the abovereport. [facility] [id number] 23:04:00* Test Item Value Reference Range Interpretation Comme nts NA (test code = 0818363986) 139 mmol/L 135-145 K (test code = 6391793990) 3.7 mmol/L 3.5-5 CL (test code = 1712923684) 105 mmol/L 98-108 CO2 TOTAL (test code = 0992969405) 24 mmol/L 23-31 AGAP (test code = 4489899832) 2-16 BUN (test code = 7786125814) 17 mg/dL 7-23 GLUCOSE (test code = 4733406458) 123 mg/dL 70-110 H CREATININE (test code = 0515277783) 0.69 mg/dL 0.6-1.25 TOTAL BILI (test code = 1008403209) 0.4 mg/dL 0.1-1.1 CALCIUM (test code = 3853594240) 8.9 mg/dL 8.6-10.6 T PROTEIN (test code = 4882409421) 6.9 g/dL 6.3-8.2 ALBUMIN (test code = 7915044913) 4.1 g/dL 3.5-5 ALK PHOS (test code = 5154993265) 52 U/L 34-122 ALTv (test code = 1742-6) 10 U/L 5-50 AST(SGOT) (test code = 6331351823) 20 U/L 13-40 eGFR Calculation (Non-) (test code = 6389276871) mL/min/1.73m2 eGFR Calculation () (test code = 7106147655) mL/min/1.73m2 DIANE (test code = DIANE) Association [...] imaging tests). Lab Interpretation (test code = 07409-4) Abnormal [facility] with Tfvzcpvavgae6352-98-92 22:52:00* Test Item Value Reference Range Interpretation Comme nts WBC (test code = 6690-2) See_Comment [HeyAnita] The system which generated this result transmitted reference range: 4.20 - 10.70 10*3/?L. The reference range was not used to interpret this result as normal/abnormal. RBC (test code = 789-8) See_Comment [HeyAnita] The system which generated this result transmitted [...] 34.6 g/dL 31.2-35 RDW-SD (test code = 32313-2) 41.7 fL 38.5-51.6 RDW-CV (test code = 788-0) 12.6 % 12.1-15.4 PLT (test code = 777-3) See_Comment [Automated Stykya ge] The system which generated this result transmitted reference range: 150 - 328 10*3/?L. The reference range was not used to interpret this result as normal/abnormal. MPV (test code = 42686-2) 8.1 fL 9.8-13 L NRBC/100 WBC (test code = 5007657498) See_Comment [Automated Vysr ssage] The system which generated this result transmitted reference range: 0.0 - 10.0 /100 WBCs. The reference range was not used to interpret this result as normal/abnormal. NRBC x10^3 (test code = 7287130532) <0.01 See_Comment [Automated Stykya ge] The system which generated this result transmitted reference range: 10*3/?L. The reference range was not used to interpret this result as normal/abnormal. GRAN MAT (NEUT) % (test code = 770-8) 49.5 % IMM GRAN % (test code = 5665259780) 0.40 % LYMPH % (test code = 736-9) 27.3 % MONO % (test code = 5905-5) 11.2 % EOS % (test code = 713-8) 10.8 % BASO % (test code = 706-2) 0.8 % GRAN MAT x10^3(ANC) (test code = 9047017496) 2.34 10*3/uL 1.99-6.95 IMM GRAN x10^3 (test code = 0901277381) <0.03 0-0.06 LYMPH x10^3 (test code = 731-0) 1.29 10*3/uL 1.09-3.23 MONO x10^3 (test code = 742-7) 0.53 10*3/uL 0.36-1.02 EOS x10^3 (test code = 711-2) 0.51 10*3/uL 0.06-0.53 BASO x10^3 (test code = 704-7) 0.04 10*3/uL 0.01-0.09 Lab Interpretation (test code = 29802-3) Abnormal [facility].Ova + Parasite [id number] 18:07:48CommentNo ova, cysts, or parasites seen. One negative specimen does not rule out the possibility ofa parasitic infection.Performed At: [facility] [address] [id number] Pollock MD Ph:[phone] + Parasite Exam LC 2019-05-27 18:07:47Final reportThese results were obtained using wet preparation(s) andtrichrome stained smear. This test does not include testingfor Cryptosporidium parvum, Cyclospora, or Microsporidia.Performed At: [facility] [id number] Pollock MD Ph:[phone] Blood Umdrjeq3708-83-38 12:02:12No growth at 5 days.POC Dloeenn7307-14-03 11:15:26* Test Item Value Reference Range Interpretation Comme nts Glucose POC (test code = Glucose POC) 107 mg/dL 70-115 If you consi joni your patient critically ill, the Christopher-Accu Check Infrom II meter should not be used for Glucose determination. Draw a venous Glucose and send to the main Lab for analysis. Vitamin B12 Wabxp6379-45-46 08:24:35* Test Item Value Reference Range Interpretation Comme nts B12 Level (test code = B12 Level) 589 pg/mL 211-946 Folate Ymooj4719-07-11 08:24:35* Test Item Value Reference Range Interpretation Comme [facility] Folate Level (test code = Folate Level) 15.2 ng/mL N Normal 3.0- 20.0 ng/mLBorderline 2.2-3.0 ng/mLDeficient <2.2 ng/mL POC Pjxyoac6285-69-69 08:22:56* Test Item Value Reference Range Interpretation Comme nts Glucose POC (test code = Glucose POC) 92 mg/dL 70-115 If you consi joni your patient critically ill, the Christopher-Accu Check Infrom II meter should not be used for Glucose determination. Draw a venous Glucose and send to the main Lab for analysis. IG Erpfu9125-86-51 07:07:44* Test Item Value Reference Range Interpretation Comme nts IG (test code = IG) 0.2 % 0.0-5.0 IG Abs (test code = IG Abs) 0 x10 N Complete Blood Count with Dvrtyewypnfj8235-62-60 07:07:43* Test Item Value Reference Range Interpretation [...] code = IPF) 0 % N Automated Csdpmdslglbs0562-84-30 07:07:43* Test Item Value Reference Range Interpretation Comme nts Neutro Auto (test code = Gay tro Auto) 52.5 % 36.0-70.0 Lymph Auto (test code = Lymph Auto) 32.6 % 12.0-44.0 [place] Auto (test code = [place] Auto) 9.0 % 0.0-11.0 Eos, Auto (test code = Eos, Auto) 5.2 % 0.0-7.0 Basophil Auto (test code = B asophil Auto) 0.5 % 0.0-2.0 Neutro Absolute (test code = Neutro Absolute) 2.2 x10 1.6-7.4 Lymph Absolute (test code = Lymph Absolute) 1.37 x10 .50-4.60 [place] Absolute (test code = M jeremias Absolute) .38 x10 .00-1.20 Eos Absolute (test code = Eo s Absolute) 0.22 x10 0.00-0.74 Baso Absolute (test code = B aso Absolute) 0.02 x10 0.00-0.21 Comprehensive Metabolic Svugh8505-02-70 06:40:56* Test Item Value Reference Range Interpretation [...] A/G Ratio) 1.5 ratio N Comprehensive Metabolic Sdmwb3905-71-37 06:40:56* Test Item Value Reference Range Interpretation [...] is not provided, and the patient is -[place], multiply by 1.212. If sex is not [...] by the National Kidney Foundation, http://nkdep.nih.gov Magnesium Raiaj0553-92-89 06:40:56* Test Item Value Reference Range Interpretation Comme nts Magnesium Level (test code = Magnesium Level) 1.6 mg/dL 1.7-2.5 L Phosphorus Jbryy2076-54-18 06:40:56* Test Item Value Reference Range Interpretation Comme nts Phosphorus Level (test code = Phosphorus Level) 5.40 mg/dL 2.70-4.50 H Comprehensive Metabolic Aonwf0259-01-52 06:40:56* Test Item Value Reference Range Interpretation [...] is not provided, and the patient is -[place], multiply by 1.212. If sex is not [...] is not provided, and the patient is -[place], multiply by 1.212. If sex is not [...] by the National Kidney Foundation, http://nkdep.nih.gov POC Jepgnoi4352-01-39 19:14:54* Test Item Value Reference Range Interpretation Comme nts Glucose POC (test code = Glucose POC) 125 mg/dL 70-115 H If you consi joni your patient critically ill, the Christopher-Accu Check Infrom II meter should not be used for Glucose determination. Draw a venous Glucose and send to the main Lab for analysis. POC Onyguin3683-14-07 16:30:50* Test Item Value Reference Range Interpretation Comme nts Glucose POC (test code = Glucose POC) 126 mg/dL 70-115 H If you consi joni your patient critically ill, the Christopher-Accu Check Infrom II meter should not be used for Glucose determination. Draw a venous Glucose and send to the main Lab for analysis. POC Bzendtw5502-27-35 11:41:56* Test Item Value Reference Range Interpretation Comme nts Glucose POC (test code = Glucose POC) 93 mg/dL 70-115 If you consi joni your patient critically ill, the Christopher-Accu Check Infrom II meter should not be used for Glucose determination. Draw a venous Glucose and send to the main Lab for analysis. POC Lyjibhz1703-13-02 07:51:27* Test Item Value Reference Range Interpretation Comme nts Glucose POC (test code = Glucose POC) 117 mg/dL 70-115 H If you consi joni your patient critically ill, the Christopher-Accu Check Infrom II meter should not be used for Glucose determination. Draw a venous Glucose and send to the main Lab for analysis. POC Izynzzq0369-33-29 22:20:22* Test Item Value Reference Range Interpretation Comme nts Glucose POC (test code = Glucose POC) 102 mg/dL 70-115 If you consi joni your patient critically ill, the Christopher-Accu Check Infrom II meter should not be used for Glucose determination. Draw a venous Glucose and send to the main Lab for analysis. POC Kzjmeqr3421-80-44 17:45:16* Test Item Value Reference Range Interpretation Comme nts Glucose POC (test code = Glucose POC) 119 mg/dL 70-115 H If you consi joni your patient critically ill, the Christopher-Accu Check Infrom II meter should not be used for Glucose determination. Draw a venous Glucose and send to the main Lab for analysis. C. difficile BJEY6951-47-64 14:58:07* Test Item Value Reference Range Interpretation Comme nts C. difficile NAAT (test code = C. difficile NAAT) Positive Negative A Contact isolatio n reccommendedResults called to and read back by: Candelaria Pizano RN at 05/21/2019 14:55:58 CDT/CL Internal QC (test code = Internal QC) Acceptable CT Abdomen and Pelvis w/ Hebbkaep2282-07-68 13:32:07Patient: JEANNETTE THRASHER Date/Time05/21/2019 13:10 CDTReason for [...] (Electronic Signature): 05/21/2019 1:32 pmCT Brain/Head w/o Rarqpgiz6574-52-39 13:29:43Patient: JEANNETTE THRASHER Date/Time05/21/2019 13:10 CDTReason for ExamHeadache;Pain (please specify)ReportCT head without contrast 05/21/2019 1:26 PMCLINICAL HISTORY: HeadacheTECHNIQUE: Axial noncontrast CT images through the head were obtained. This examination was performed according to our departmental dose optimization program, which includes automated exposure control, adjustment of the mA and/or kV according to patient size, and/or use of iterative reconstruction techniq ue.COMPARISON: None availableLOCATION: [id number]:There is no hemorrhage, extra-axial collection, mass, hydrocephalus, [...] Timothy JSigned (Electronic Signature): 05/21/2019 1:29 pmPOC Nmejpdb2360-57-14 10:21:00* Test Item Value Reference Range Interpretation Comme nts Glucose POC (test code = Glucose POC) 131 mg/dL 70-115 H If you consi joni your patient critically ill, the Christopher-Accu Check Infrom II meter should not be used for Glucose determination. Draw a venous Glucose and send to the main Lab for analysis. Urine Ungwwoy0258-49-90 10:17:20* Test Item Value Reference Range Interpretation [...] Enterobacter cloacae C Urine Added by GL_SJM_UA_CUL_INDHemoglobin [id number] 07:33:43* Test Item Value Reference Range Interpretation Comme nts Hemoglobin A1c (test code = Hemoglobin A1c) 5.0 % 4.8-5.9 Non Diabetic 4.8-5.9%Diabetic <7.0% Thyroid Stimulating Wxmgfuh9971-04-22 05:41:45* Test Item Value Reference Range Interpretation Comme nts TSH (test code = TSH) 0.432 mIU/mL 0.270-4.200 Pro B Natriuretic Bakbcph3025-36-51 05:41:45* Test Item Value Reference Range Interpretation Comme nts NT-proBNP (test code = NT-proBNP) 1188 pg/mL 0-124 H Troponin [id number] 05:41:45* Test Item Value Reference Range Interpretation [...] a diagnosis of chronic myocardial injury. Urinalysis Pbztbxnsaih0583-90-78 05:28:06* Test Item Value Reference Range Interpretation [...] Acid, Plasma (Venous)) 1.9 mmol/L 0.5-1.9 Lipase Oxwjk9101-50-14 05:07:40* Test Item Value Reference Range Interpretation Comme nts Lipase Level (test code = Li pase Level) 41 U/L 13-60 Lipid Msarf3285-99-44 05:07:40* Test Item Value Reference Range Interpretation Comme nts Cholesterol Total (test code = Cholesterol Total) 191 mg/dL 0-200 RISK OF HEART DISEASEPublished by [place] Heart Association Analyte Optimal Borderline Increased RiskCHOL [...] calculation is LDL/HDL Ratio=LDL Calc/HDL Chol Magnesium Srmsg8743-95-00 05:07:40* Test Item Value Reference Range Interpretation Comme nts Magnesium Level (test code = Magnesium Level) 1.8 mg/dL 1.7-2.5 Pdhzuir5107-59-36 05:07:39* Test Item Value Reference Range Interpretation Comme nts Amylase Level (test code = A mylase Level) 28 28-100 Comprehensive Metabolic Lumaz0183-37-36 05:07:39* Test Item Value Reference Range Interpretation [...] is not provided, and the patient is -[place], multiply by 1.212. If sex is not [...] the National Kidney Foundation, http://nkdep.nih.gov Comprehensive Metabolic Oznmw2438-13-01 05:07:39* Test Item Value Reference Range Interpretation [...] is not provided, and the patient is -[place], multiply by 1.212. If sex is not [...] by the National Kidney Foundation, http://nkdep.nih.gov Creatine Owrjjb3313-27-21 05:07:39* Test Item Value Reference Range Interpretation Comme nts CK (test code = CK) 397 U/L 39-308 H Comprehensive Metabolic Xspvh9502-15-75 05:07:39* Test Item Value Reference Range Interpretation [...] is not provided, and the patient is -[place], multiply by 1.212. If sex is not [...] is not provided, and the patient is -[place], multiply by 1.212. If sex is not [...] National Kidney Foundation, http://nkdep.nih.gov Prothrombin Time and PEV2323-82-24 04:54:34* Test Item Value Reference Range Interpretation Comme nts Prothrombin Time (test code = Prothrombin Time) 9.6 seconds 9.8-13.4 L INR (test code = INR) 0.8 ratio 0.6-1.2 Urinalysis with Culture, if mxnwrkdvc7502-85-87 04:49:44* Test Item Value Reference Range Interpretation [...] cre ated by rule GL_SJM_UA_MICRO_IN D POC Kbhtyyk2437-21-20 21:45:21* Test Item Value Reference Range Interpretation Comme nts Glucose POC (test code = Glucose POC) 170 mg/dL 70-115 H If you consi joni your patient critically ill, the Christopher-Accu Check Infrom II meter should not be used for Glucose determination. Draw a venous Glucose and send to the main Lab for analysis. POC Dwtlrrv1201-79-28 19:00:22* Test Item Value Reference Range Interpretation [...] 8.3 mmol/L 0.5-1.9 Critical results called to aSmanta Ibrahim at 05/20/2019 16:16:27 CDT by ngozi. Read back and verified? yes Blood Haeyijy6429-83-21 15:01:57No growth at 5 days.Urinalysis Microscopic 2019-05-20 12:14:47* Test Item Value Reference Range Interpretation Comme nts UA WBC (test code = UA WBC) 6-10 0-5 A UA RBC (test code = UA RBC) 6-10 0-5 A UA Bacteria (test code = UA Bacteria) Many A UA Squam Epithelial (test co de = UA Squam Epithelial) 6-10 A POC [id number] 12:13:00* Test Item Value Reference Range Interpretation [...] Radial. L N XR Chest 1 View Ywnxnoo0094-49-15 12:07:02Patient: JEANNETTE THRASHER Date/Time05/20/2019 11:50 CDTReason for ExamCongestio nReportLOCATION: [id number] 1 VIEWINDICATION: CongestionCOMPARISON: None availableFINDINGS: The lungsare clear and well inflated. No pleural effusion [...] and verified? yes Urinalysis with Culture, if xgpfoxmcs5253-74-80 12:05:14* Test Item Value Reference Range Interpretation [...] rule GL_SJM_UA_MICRO_IN D Drugs of Abuse Urine 03778-88-55 12:00:45* Test Item Value Reference Range Interpretation [...] = Cannabinoid Screen Ur) Negative Negative POC [id number] 10:36:51* Test Item Value Reference Range Interpretation [...] Draw Site) Radial. L N Comprehensive Metabolic Sfvry8875-58-97 10:24:56* Test Item Value Reference Range Interpretation [...] is not provided, and the patient is -[place], multiply by 1.212. If sex is not [...] is not provided, and the patient is -[place], multiply by 1.212. If sex is not [...] by the National Kidney Foundation, http://nkdep.nih.gov Manual Kcvt8556-87-84 10:24:56* Test Item Value Reference Range Interpretation [...] = Lymph Man Abs) 1.1 x10 0.5-4.6 [place] Man Abs (test code = [place] Man Abs) 0.7 x10 0.0-1.2 Eos Man [...] = Plt Estimation) slight decrease Comprehensive Metabolic Cijvm1245-48-46 10:24:56* Test Item Value Reference Range Interpretation [...] is not provided, and the patient is -[place], multiply by 1.212. If sex is not [...] is not provided, and the patient is -[place], multiply by 1.212. If sex is not [...] by the National Kidney Foundation, http://nkdep.nih.gov Creatine Jadwww7430-02-13 10:01:34* Test Item Value Reference Range Interpretation Comme nts CK (test code = CK) 154 U/L 39-308 Magnesium Prslz6203-90-11 10:01:34* Test Item Value Reference Range Interpretation Comme nts Magnesium Level (test code = Magnesium Level) 2.4 mg/dL 1.7-2.5 IG Iixby4847-17-60 09:52:39* Test Item Value Reference Range Interpretation Comme nts IG (test code = IG) 0.6 % 0.0-5.0 IG Abs (test code = IG Abs) 0 x10 N Complete Blood Count with Djomumtzcrxu3114-84-88 09:52:38* Test Item Value Reference Range Interpretation [...]
[2024-01-15 11:39] LABS: Absolute Lymphocytes (CBC) 0.6 K/uL (0.7-4.9); Absolute Monocytes 0.5 K/uL (0.1-1.3); Absolute Neutrophil 5.4 K/uL (1.8-8.0); Basophils % 0.6 % (0-1.3); Eosinophils % 0.2 % (0-4.4); Hematocrit 37.5 % (39.6-49.0); Hemoglobin 13.1 g/dL (13.6-17.9); Lymphocytes % 8.9 % (15.3-44.8); MCH 32.8 pg (27.0-35.0); MCHC 34.9 g/dL (32.0-36.0); MPV 6.4 fL (7.6-11.3); Monocytes % 7.4 % (3.3-12.3); Neutrophils % 82.9 % (41.7-73.7); Nucleated Red Blood Cells % 0.1 % (0-0); Platelets 58 thou/uL (152-406); RBC Red Blood Cell Count 3.99 M/uL (4.33-5.43); Red Cell Distribution Width 14.7 % (12.1-15.2)
[2024-01-15] MEDS ORDERED: ONDANSETRON 4 MG/2 ML VIAL ONE (11:41)
[2024-01-15] MEDS ORDERED: DIAZEPAM 10 MG/2 ML INJ SYRINGE ONE ×2 (11:41→14:57)
[2024-01-15] MEDS ORDERED: PANTOPRAZOLE 40 MG INJ ONE (11:41)
[2024-01-15 11:45] LABS: PT Prothrombin Time 10.6 SECONDS (9.5-12.5); PTT, Activated Partial Thromb 24.7 SECONDS (24.3-36.9); Protime INR 0.96
[2024-01-15] MEDS: PANTOPRAZOLE INJ 80 MG in NA CHLORIDE 0.9% 250 ML IV SCH (12:00)
[2024-01-15 12:03] LABS: Albumin 3.8 g/dL (3.4-5.0); Albumin/Globulin Ratio 0.9 (1.1-1.8); Anion Gap 13.5 mEq/L (5.0-15.0); Bilirubin Total 0.7 mg/dL (0.2-1.0); Globulin 4.1 g/dL (2.3-3.5); Potassium 3.5 mEq/L (3.5-5.1); Protein, Total 7.9 g/dL (6.4-8.2)
[2024-01-15 12:34] LABS: Blood Morphology Comment NOT SEEN (NOT SEEN); Platelet Estimate DECR; White Blood Cell Scan OK (OK)
--- NOTE | 2024-01-15 12:45 | RAD REPORT ---
EXAM DESCRIPTION: CT - Abdomen Pelvis W Contrast - 01/15/2024 12:20 pm CLINICAL HISTORY: melena;Abd pain COMPARISON: Abdomen Pelvis W Contrast dated 08/01/2021 TECHNIQUE: Thin cut axial CT imaging of the abdomen and pelvis was performed following intravenous a dministration of 100mL Isovue 300. Multiplanar reformats were generated and reviewed. All CT scans are performed using dose optimization technique as appropriate and may include automated exposure control or mA/KV adjustment according to patient size. FINDINGS: No suspicious findings in the lung bases. The liver, spleen, adrenal glands, and pancreas show no suspicious findings. Gallbladder and biliary tree are also without suspicious finding. Symmetric renal function is seen with no hydronephrosis or suspicious renal mass. Left renal nonobstr ucting calculi up to 4 mm in greatest caliber. No dilated bowel loops or bowel wall thickening. No free air, free fluid or inflammatory stranding. N o hernia, mass or bulky lymphadenopathy. The urinary bladder is without significant finding. No suspicious bony findings. Bilateral hip arthroplasty hardware in place, resulting in streak artifa ct which somewhat limits evaluation of the pelvic structures. IMPRESSION: Nonobstructing left renal calculi largest measuring up to 4 mm. No other acute intra-abd ominal process.
--- NOTE | 2024-01-15 13:32 | EDPHYS ---
Physician Documentation [facility] Name: Melchor Min Age: 58 yrs Sex: Male : 1965 Arrival Date: 01/15/2024 Time: 10:11 Bed 15 Private MD: ED Physician Carloz Fuchs HPI: 01/14 11:27 This 58 yrs old Male presents to ER via Ambulatory with complaints of Vomiting, rn Black/Tarry Stools, Abdominal Pain. 11:27 The patient presents to the emergency department vomiting blood, with rectal bleeding, rn a moderate amount, melena, with multiple such episodes. Onset: The symptoms/episode began/occurred yesterday. Abdominal pain: described as achy, located in the epigastric area, that does not radiate. Modifying factors: The symptoms are alleviated by nothing, the symptoms are aggravated by nothing. Associated signs and symptoms: Pertinent negatives: chest pain, dizziness at rest, dizziness when standing, fever, shortness of breath, syncope. Severity of symptoms: At their worst the symptoms were moderate in the emergency department the symptoms are unchanged. The patient has experienced a previous episode. Patient reports dark black emesis and dark black stool that began yesterday. Patient is a daily drinker, no known cirrhosis. Does not take blood thinners. Reports mid to upper abdominal pain as well. Due to vomiting patient has not been able to drink his normal amount of alcohol today. Patient also reports feeling shakiness and uneasy. No chest pain or shortness of breath. Has had GI bleed once in the past and required blood transfusion at that time.. Historical: - Allergies: 10:31 No Known Allergies; db - PMHx: 10:31 Hypertensive disorder; db - PSHx: 10:31 hip replacements x 2; db - Immunization history:: Adult Immunizations unknown. - Social history:: Smoking status: Patient denies any tobacco usage or history of. Patient uses alcohol, on a daily basis. - Family history:: not pertinent. - Hospitalizations: : No recent hospitalization is reported. ROS: 11:27 Constitutional: Negative for fever, chills, and weight loss, Cardiovascular: Negative rn for chest pain, palpitations, and edema, Respiratory: Negative for shortness of breath, cough, wheezing, and pleuritic chest pain, Abdomen/GI: Positive for abdominal pain and hematemesis as well as melena MS/Extremity: Negative for injury and deformity, Skin: Negative for injury, rash, and discoloration, Neuro: Positive for generalized weakness and malaise. Exam: 11:27 Constitutional: This is a well developed, well nourished patient who is awake, alert, rn coarse bilateral hand tremors Head/Face: Normocephalic, atraumatic. ENT: Dry mucous membranes with tongue fasciculations present Cardiovascular: Tachycardic, regular. No pulse deficits. Respiratory: Mild tachypnea. Speaking full sentences. No retractions or nasal flaring. Abdomen/GI: Soft, epigastric tenderness without guarding or rebound. MS/ Extremity: Pulses equal, no cyanosis. Neuro: Awake and alert, GCS 15 Vital Signs: 10:22 BP 198 / 132; Pulse 115; Resp 18; Pulse Ox 95% ; db 10:25 BP 201 / 120; Pulse 111; Resp 20; Temp 98.8(O); Pulse Ox 95% on R/A; Weight 81.65 kg; db Height 5 ft. 9 in. ; Pain 9/10; 11:30 BP 159 / 50; Pulse 107; Resp 15; Pulse Ox 95% ; me1 12:30 BP 187 / 109; Pulse 101; Resp 11; Pulse Ox 94% ; me1 13:00 BP 185 / 109; Pulse 95; Resp 14; Pulse Ox 91% ; me1 14:00 BP 181 / 87; Pulse 115; Resp 19; Pulse Ox 97% on R/A; me1 14:30 BP 197 / 119; Pulse 94; Resp 18; Pulse Ox 96% on R/A; db 15:00 BP 177 / 106; Pulse 97; Resp 16; Pulse Ox 96% on R/A; db 16:30 BP 200 / 117; Pulse 94; Resp 16; Pulse Ox 95% ; db 10:25 Body Mass Index 26.58 (81.65 kg, 175.26 cm) db 10:25 Pain Scale: Adult db MDM: 10:17 Patient medically screened. rn 13:30 Differential diagnosis: gastritis, Upper GI bleed, melena. Data reviewed: vital signs, rn nurses notes, lab test result(s), radiologic studies, CT scan, and as a result, I will admit patient. Counseling: I had a detailed discussion with the patient and/or guardian regarding the historical points, exam findings, and any diagnostic results supporting the discharge/admit diagnosis, lab results, radiology results, the need for further work-up and treatment in the hospital. Response to treatment: the patient's symptoms have mildly improved after treatment, and as a result, I will admit patient. 13:30 ED course: I personally spent 35 minutes engaged in work directly related to the rn individual patient's care. This does not include any time spent performing procedures. The patient has been deemed critically ill because of acute upper GI bleed complicated by the fact of alcohol dependence and withdrawal. No signs of delirium tremens at this time but will require treatment for both.. 01/14 10:41 Order name: CBC with Diff; Complete Time: 12:47 rn 01/14 10:41 Order name: CMP; Complete Time: 12:20 rn 01/14 10:41 Order name: Lipase; Complete Time: 12:20 rn 01/14 10:41 Order name: Protime (+inr); Complete Time: 12:00 rn 01/14 10:41 Order name: Ptt, Activated; Complete Time: 12:00 rn 01/14 11:29 Order name: Type And Screen; Complete Time: 12:20 db 01/14 12:24 Order name: ABO/RH no charge; Complete Time: 12:47 EDMS 01/14 12:34 Order name: CBC Smear Scan; Complete Time: 12:47 EDMS 01/14 14:36 Order name: Basic Metabolic Panel EDMS 01/14 14:36 Order name: Basic Metabolic Panel EDMS 01/14 14:36 Order name: CBC with Automated Diff EDMS 01/14 14:36 Order name: CBC with Automated Diff EDMS 01/14 14:36 Order name: Magnesium EDMS 01/14 14:36 Order name: Magnesium EDMS 01/14 14:36 Order name: Phosphorus EDMS 01/14 14:36 Order name: Phosphorus EDMS 01/14 10:41 Order name: CT Abd/Pelvis - IV Contrast Only; Complete Time: 12:47 rn 01/14 10:42 Order name: EKG; Complete Time: 10:42 rn 01/14 14:36 Order name: CONS Physician Consult EDMS 01/14 10:41 Order name: IV Saline Lock; Complete Time: 11:28 rn 01/14 10:41 Order name: Labs collected and sent; Complete Time: 11:28 rn 01/14 10:42 Order name: EKG - Nurse/Tech; Complete Time: 11:30 rn Administered Medications: 11:45 Drug: Ondansetron IVP 4 mg IVP once; over 2 minutes Route: IVP; Site: right forearm; db 18:56 Follow up: Response: No adverse reaction db 11:45 Drug: Pantoprazole IVP 40 mg IVP once Route: IVP; Site: right forearm; db 17:11 Follow up: Response: No adverse reaction db 11:45 Drug: Diazepam IVP 10 mg IVP once Route: IVP; Site: right forearm; db 18:56 Follow up: Response: No adverse reaction db 12:04 Drug: Pantoprazole IV 8 mg/hr IV at 25 ml/hr continuous; (Standard dilution is 80 mg in db 250 mL NS) Route: IV; Rate: 25 ml/hr; Site: right forearm; 17:11 Follow up: Response: No adverse reaction; IV Status: Infusion continued upon admission db 14:58 Drug: Diazepam IVP 5 mg IVP once Route: IVP; Site: left antecubital; db 17:11 Follow up: Response: No adverse reaction db Disposition Summary: 01/15/24 13:32 Hospitalization Ordered Notes: Hospitalization Status: Inpatient Admission rn Provider: Chino Miranda rn Condition: Stable rn Problem: new rn Symptoms: have improved rn Bed/Room Type: Standard rn Location: Telemetry/MedSurg (Inpatient)(01/15/24 17:01) bd Room Assignment: [facility](01/15/24 17:01) bd Diagnosis - Melena rn - GI Bleed/ Gastrointestinal hemorrhage, unspecified rn - Alcohol dependence with withdrawal, uncomplicated rn Forms: - Medication Reconciliation Form rn - SBAR form rn - Leadership Thank You Letter harness placer time excluding procedures: 13:30 Critical care time: Bedside Care: 35 minutes. Total time: 35 minutes rn Signatures: Dispatcher [employer] Erin Newman Roman, MD MD rn Benton, Danielle, RN RN db Corrections: (The following items were deleted from the chart) 15:21 13:32 Telemetry/MedSurg (Inpatient) rn bd 15:21 13:32 rn bd 17: 15:21 [facility] ER HOLD bd bd 17:01 15:21 ERHOLD- bd bd
--- NOTE | 2024-01-15 13:32 | ER ---
Nurse's Notes [facility] Name: Melchor Min Age: 58 yrs Sex: Male : 1965 Arrival Date: 01/15/2024 Time: 10:11 Bed 15 Private MD: Diagnosis: Melena;GI Bleed/ Gastrointestinal hemorrhage, unspecified;Alcohol dependence with withdrawal, uncomplicated Presentation: 01/14 10:25 Chief complaint: Patient states: UPPER ABD PAIN X 2 DAYS WITH N/V AND BLACK STOOLS. db STATES DRINKS 1 FIFTH OF ALCOHOL DAILY. LAST DRANK THIS AM. DID NOT TAKE BP MEDICATION THIS AM. Coronavirus screen: Client denies travel out of the [place] in the last 14 days. At this time, the client does not indicate any symptoms associated with coronavirus-19. Coronavirus screen: Vaccine status: Patient reports receiving the 2nd dose of the covid vaccine. Ebola Screen: Patient negative for fever greater than or equal to 101.5 degrees Fahrenheit, and additional compatible Ebola Virus Disease symptoms Patient denies exposure to infectious person. Patient denies travel to an Ebola-affected area in the 21 days before illness onset. No symptoms or risks identified at this time. Initial Sepsis Screen: Does the patient meet any 2 criteria? HR > 90 bpm. Does the patient have a suspected source of infection? No. Patient's initial sepsis screen is negative. Risk Assessment: Do you want to hurt yourself or someone else? Patient reports no desire to harm self or others. Onset of symptoms was January 15, 2024. 10:25 Method Of Arrival: Ambulatory db 10:25 Acuity: TERRY 2 db Triage Assessment: 10:31 General: Appears in no apparent distress. uncomfortable, Behavior is cooperative, db anxious, restless. Pain: Complains of pain in abdomen. Neuro: Level of Consciousness is awake, alert, obeys commands, Oriented to person, place, time, situation. Respiratory: Airway is patent Respiratory effort is even, unlabored, Respiratory pattern is regular, symmetrical. GI: Reports upper abdominal pain, bloody stool, vomiting. Historical: - Allergies: 10:31 No Known Allergies; db - PMHx: 10:31 Hypertensive disorder; db - PSHx: 10:31 hip replacements x 2; db - Immunization history:: Adult Immunizations unknown. - Social history:: Smoking status: Patient denies any tobacco usage or history of. Patient uses alcohol, on a daily basis. - Family history:: not pertinent. - Hospitalizations: : No recent hospitalization is reported. Screenin:22 [facility] ED Fall Risk Assessment (Adult) History of falling in the last 3 months, db including since admission No falls in past 3 months (0 pts) Confusion or Disorientation No (0 pts) Intoxicated or Sedated No (0 pts) Impaired Gait No (0 pts) Mobility Assist Device Used No (0 pt) Altered Elimination No (0 pt) Score/Fall Risk Level 0 - 2 = Low Risk Oriented to surroundings, Maintained a safe environment. Abuse screen: Denies threats or abuse. Denies injuries from another. Nutritional screening: No deficits noted. Tuberculosis screening: No symptoms or risk factors identified. Assessment: 10:35 Reassessment: Patient appears in no apparent distress at this time. Patient is alert, db oriented x 3, equal unlabored respirations, skin warm/dry/pink. SEE TRIAGE FOR INITIAL ASSESSMENT. 11:00 Reassessment: Patient appears in no apparent distress at this time. Patient and/or db family updated on plan of care and expected duration. Pain level reassessed. Patient is alert, oriented x 3, equal unlabored respirations, skin warm/dry/pink. General: Appears in no apparent distress. uncomfortable, Behavior is cooperative, anxious. Pain: Complains of pain in abdomen Pain does not radiate. Pain began gradually. Neuro: Level of Consciousness is awake, alert, obeys commands, Oriented to person, place, time, situation. Cardiovascular: Capillary refill < 3 seconds Patient's skin is warm and dry. Respiratory: Airway is patent Respiratory effort is even, unlabored, Respiratory pattern is regular, symmetrical. GI: Abdomen is flat, non-distended, Reports lower abdominal pain, upper abdominal pain, nausea, vomiting. 12:00 Reassessment: Patient appears in no apparent distress at this time. Patient and/or db family updated on plan of care and expected duration. Pain level reassessed. Patient is alert, oriented x 3, equal unlabored respirations, skin warm/dry/pink. 13:00 Reassessment: Patient appears in no apparent distress at this time. Patient and/or db family updated on plan of care and expected duration. Pain level reassessed. Patient is alert, oriented x 3, equal unlabored respirations, skin warm/dry/pink. Patient states feeling better. Patient states symptoms have improved. 14:00 Reassessment: Patient appears in no apparent distress at this time. Patient and/or db family updated on plan of care and expected duration. Pain level reassessed. Patient is alert, oriented x 3, equal unlabored respirations, skin warm/dry/pink. 15:00 Reassessment: Patient appears in no apparent distress at this time. Patient and/or db family updated on plan of care and expected duration. Pain level reassessed. Patient is alert, oriented x 3, equal unlabored respirations, skin warm/dry/pink. 16:00 Reassessment: Patient appears in no apparent distress at this time. Patient and/or db family updated on plan of care and expected duration. Pain level reassessed. Patient is alert, oriented x 3, equal unlabored respirations, skin warm/dry/pink. 17:00 Reassessment: Patient appears in no apparent distress at this time. Patient and/or db family updated on plan of care and expected duration. Pain level reassessed. Patient is alert, oriented x 3, equal unlabored respirations, skin warm/dry/pink. EATING MEAL PROVIDED. 18:49 Reassessment: PT TRANSPORTED TO UNIT SEE [facility] FOR BP. PENDING TRANSFER DUE TO HIGH db BP Patient states symptoms have improved. Vital Signs: 10:22 BP 198 / 132; Pulse 115; Resp 18; Pulse Ox 95% ; db 10:25 BP 201 / 120; Pulse 111; Resp 20; Temp 98.8(O); Pulse Ox 95% on R/A; Weight 81.65 kg; db Height 5 ft. 9 in. ; Pain 9/10; 11:30 BP 159 / 50; Pulse 107; Resp 15; Pulse Ox 95% ; me1 12:30 BP 187 / 109; Pulse 101; Resp 11; Pulse Ox 94% ; me1 13:00 BP 185 / 109; Pulse 95; Resp 14; Pulse Ox 91% ; me1 14:00 BP 181 / 87; Pulse 115; Resp 19; Pulse Ox 97% on R/A; me1 14:30 BP 197 / 119; Pulse 94; Resp 18; Pulse Ox 96% on R/A; db 15:00 BP 177 / 106; Pulse 97; Resp 16; Pulse Ox 96% on R/A; db 16:30 BP 200 / 117; Pulse 94; Resp 16; Pulse Ox 95% ; db 10:25 Body Mass Index 26.58 (81.65 kg, 175.26 cm) db 10:25 Pain Scale: Adult db ED Course: 10:12 Patient arrived in ED. im 10:17 Carloz Fuchs MD is Attending Physician. rn 10:22 Patient has correct armband on for positive identification. Placed in gown. Bed in low db position. Call light in reach. Side rails up X 1. Client placed on continuous cardiac and pulse oximetry monitoring. NIBP monitoring applied. Warm blanket given. 10:29 Elsy Villavicencio, CLARKE is Primary Nurse. db 10:31 Triage completed. db 10:31 Arm band placed on Patient placed in an exam room. db 11:25 Inserted saline lock: 20 gauge in left antecubital area, using aseptic technique. Blood db collected. Patient maintains SpO2 saturation greater than 95% on room air. 11:30 Inserted saline lock: 20 gauge in right forearm, using aseptic technique. Blood db collected. 11:30 EKG done, by ED staff, reviewed by Carloz Fuchs MD. db 12:21 CT Abd/Pelvis - IV Contrast Only In Process Unspecified. EDMS 13:31 Chino Miranda MD is Hospitalizing Provider. rn 18:55 Provided Education on: ADMISSION. db 18:55 No provider procedures requiring assistance completed. Patient admitted, IV remains in db place. Administered Medications: 11:45 Drug: Ondansetron IVP 4 mg IVP once; over 2 minutes Route: IVP; Site: right forearm; db 18:56 Follow up: Response: No adverse reaction db 11:45 Drug: Pantoprazole IVP 40 mg IVP once Route: IVP; Site: right forearm; db 17:11 Follow up: Response: No adverse reaction db 11:45 Drug: Diazepam IVP 10 mg IVP once Route: IVP; Site: right forearm; db 18:56 Follow up: Response: No adverse reaction db 12:04 Drug: Pantoprazole IV 8 mg/hr IV at 25 ml/hr continuous; (Standard dilution is 80 mg in db 250 mL NS) Route: IV; Rate: 25 ml/hr; Site: right forearm; 17:11 Follow up: Response: No adverse reaction; IV Status: Infusion continued upon admission db 14:58 Drug: Diazepam IVP 5 mg IVP once Route: IVP; Site: left antecubital; db 17:11 Follow up: Response: No adverse reaction db Medication: 10:22 VIS not applicable for this client. db Outcome: 13:32 Decision to Hospitalize by Provider. rn 18:55 Admitted to Med/surg accompanied by tech, db 18:55 Condition: stable 18:55 Instructed on the need for admit, 18:56 Patient left the ED. db Signatures: Dispatcher [employer] EDCarloz Yo MD MD rn Benton, Danielle, RN RN Ciara Khan Michelle, RN RN me1
--- NOTE | 2024-01-15 13:52 | P.HP ---
Certification for Inpatient Patient admitted to: Observation With expected LOS: >2 Midnights Patient will require the following post-hospital care: None Practitioner: I am a practitioner with admitting privileges, knowledge of patient current condition, hospital course, and medical plan of care. Services: Services provided to patient in accordance with Admission requirements found in Title 42 Section 412.3 of the Code of Federal Regulations Patient History Date of Service: 01/15/24 Reason for admission: alcohol withdraw, GI bleed History of Present Illness: Melchor Min is a 58-year-old male with past medical history of hypertensive disorder, alcohol abuse, who presents to the ED with complaints of abdominal pain, black tarry stools, and vomiting since last night. While in the ED he experienced coffee-ground emesis and melena. Reports drinking 1/5 liquor daily with last drink this morning. He c/o nausea and vomiting, unable to keep anyth ing down. On examination, he is cooperative but aggitated, unable to lay still. He reports having a GI bleed in the past requiring blood transfusion. Initial vitals BP 198 / 132; Pulse 115; Resp 18; Pulse Ox 95% Laboratory evaluation H&H 13/37, platelets 58, serum glucose 162, lipase 52, AST 84 PT/INR 10.6/0.96, APTT 24.7 CT abdomen pelvis reports "Nonobstructing left renal calculi largest measuring up to 4 mm. No other acute intraabdominal process." Melchor will be admitted to hospitalist service for further evaluation and treatment of alcohol withdrawal and GI bleed, Dr. Negrete consulted. Allergies No Known Allergies Allergy (Unverified 07/25/21 00:06) Home Medications: chlordiazePOXIDE HCl [Chlordiazepoxide HCl] 25 mg PO SEECOM 4 Days #6 cap 12/27/23 lisinopriL [Lisinopril] 10 mg PO DAILY #30 tab 12/27/23 - Past Medical/Surgical History Diabetic: No -: Hypertension -: Alcohol use disorder -: anxiety -: александр hip replacements Psychosocial/ Personal History: Lives at home with his family - Family History Father -: Hypertension - Social History Smoking Status: Never smoker Alcohol use: Yes CD- Drugs: No Caffeine use: Yes Review of Systems General: Weakness Gastrointestinal: Nausea, Vomiting, Abdominal Pain, Melena, Hematochezia Neurological: Weakness Physical Examination - Physical Exam General: Alert, In no apparent distress, Oriented x3 HEENT: Atraumatic, Normocephalic, PERRLA Neck: Supple, 2+ carotid pulse no bruit, JVD not distended Respiratory: Clear to auscultation bilaterally, Normal air movement Cardiovascular: Normal pulses, Regular rate/rhythm, Normal S1 S2 Capillary refill: <2 Seconds Gastrointestinal: Normal bowel sounds, Soft and benign Musculoskeletal: No swelling, No contractures Integumentary: No breakdown, No significant lesion Neurological: Normal speech, Normal strength at 5/5 x4 extr, Normal tone - Studies Laboratory Data (last 24 hrs) 01/15/24 01/15/24 01/15/24 11:25 11:25 11:25 WBC 6.60 Hgb 13.1 L Hct 37.5 L Plt Count 58 L PT 10.6 INR 0.96 APTT 24.7 Sodium 136 Potassium 3.5 BUN 16 Creatinine 1.00 Glucose 162 H Total Bilirubin 0.7 AST 84 H ALT 61 Alkaline Phosphatase 72 Lipase 52 Assessment and Plan - Plan Assessment and plan Alcohol withdrawal GI bleed Thrombocytopenia Hyperglycemia secondary to alcohol consumption H&H 13/37, platelets 58, serum glucose 162 Reports drinking 1/5 daily, last drink was this a.m. (01/14) Protonix drip IV fluid [place] scheduled Folic acid and thiamine p.o. daily Monitor daily labs Dr. Negrete consulted Alcohol cessation education provided type and screened in the ED Left nonobstructing renal calculi Seen on CT abdomen pelvis 4 mm Follow-up as outpatient History of anxiety History of hypertension Start home medications when available DVT PPx SCDs Full code 1 to 2 days Discharge Plan: Home Plan to discharge in: 24 Hours - Advance Directives Does patient have a Living Will: No Does patient have a Durable POA for Healthcare: No Time Spent Managing Pts Care (In Minutes): 50
[2024-01-15] MEDS: THIAMINE HCL 100 MG TABLET PO SCH (14:37)
[2024-01-15] MEDS: FOLIC ACID 1 MG TABLET PO SCH (14:37)
[2024-01-15] MEDS: NA CHLORIDE 0.9% 1,000 ML IV SCH (15:00)
[2024-01-15] MEDS ORDERED: PANTOPRAZOLE INJ 80 MG in NA CHLORIDE 0.9% 250 ML IV SCH (15:00)
[2024-01-15] MEDS: HYDRALAZINE HCL 20 MG/ML VIAL IV PRN (17:46)
[2024-01-15] MEDS: chlordiazePOXIDE HCl 25 MG CAP PO SCH (19:26)
[2024-01-15] MEDS: ONDANSETRON 4 MG/2 ML VIAL IV PRN (19:26)
[2024-01-15] MEDS ORDERED: FLUMAZENIL 0.1 MG/ML (5 mL VIAL) IV PRN (19:29)
[2024-01-15] MEDS ORDERED: LORAZEPAM 1 MG TABLET PO PRN (19:29)
[2024-01-15] MEDS ORDERED: LORazepam 2 MG/ML VIAL IV PRN (19:29)
[2024-01-15 19:59] VITALS: BMI 22.4
[2024-01-15] MEDS: LORAZEPAM 1 MG TABLET PO SCH (20:00)
[2024-01-15] MEDS: METOPROLOL TAR 25 MG TAB PO SCH (20:05)
[2024-01-15] MEDS: LORazepam 2 MG/ML VIAL IV SCH (20:06)
[2024-01-16 04:00] LABS: Absolute Eosinophils 0.2 K/uL (0-0.5); Absolute Lymphocytes (CBC) 0.8 K/uL (0.7-4.9); Absolute Monocytes 0.5 K/uL (0.1-1.3); Absolute Neutrophil 3.4 K/uL (1.8-8.0); Basophils % 0.5 % (0-1.3); Eosinophils % 3.4 % (0-4.4); Hematocrit 35.3 % (39.6-49.0); Hemoglobin 12.4 g/dL (13.6-17.9); Lymphocytes % 16.3 % (15.3-44.8); MCHC 35.1 g/dL (32.0-36.0); MCV 94.1 fL (80-100); MPV 6.8 fL (7.6-11.3); Monocytes % 9.5 % (3.3-12.3); Neutrophils % 70.3 % (41.7-73.7); Nucleated Red Blood Cells % 0.2 % (0-0); Platelets 53 thou/uL (152-406); RBC Red Blood Cell Count 3.75 M/uL (4.33-5.43); Red Cell Distribution Width 14.8 % (12.1-15.2)
[2024-01-16 04:13] LABS: Anion Gap 9.2 mEq/L (5.0-15.0); Magnesium 1.8 mg/dL (1.6-2.4); Phosphorus 1.9 mg/dL (2.5-4.9); Potassium 3.2 mEq/L (3.5-5.1)
--- NOTE | 2024-01-16 07:30 | P.PN ---
Date of Service: 01/16/24 Subjective CIWA 6 on admission CIWA 8 overnight increased aggitation and hallucination ROS 10 point ROS as noted above, otherwise negative Physical Exam General: Alert, In no apparent distress, Oriented x3 HEENT: Atraumatic, Normocephalic, PERRLA Neck: Supple, 2+ carotid pulse no bruit, JVD not distended Respiratory: Clear to auscultation bilaterally, Normal air movement Cardiovascular: Normal pulses, Regular rate/rhythm, Normal S1 S2 Capillary refill: <2 Seconds Gastrointestinal: Normal bowel sounds, Soft and benign Musculoskeletal: No swelling, No contractures Integumentary: No breakdown, No significant lesion Neurological: Normal speech, Normal strength at 5/5 x4 extr, Normal tone Vitals Reviewed Problem list Alcohol withdrawal GI bleed Thrombocytopenia Hyperglycemia secondary to alcohol consumption Left nonobstructing renal calculi History of anxiety History of hypertension Assessment and Plan Alcohol withdrawal GI bleed Thrombocytopenia Hyperglycemia secondary to alcohol consumption H&H 13/37, platelets 58, serum glucose 162 Reports drinking 1/5 daily, last drink was this a.m. (01/14) Protonix drip IV fluid Librium, scheduled Ativan scheduled Folic acid and thiamine p.o. daily Monitor daily labs Dr. Negrete consulted Alcohol cessation education provided type and screened in the ED Left nonobstructing renal calculi Seen on CT abdomen pelvis 4 mm Follow-up as outpatient History of anxiety History of hypertension Start home medications when available DVT PPx SCDs Full code 1 to 2 days Discharge Plan: Home Plan to discharge in: 24 Hours
[2024-01-16] MEDS ORDERED: INFLUENZA VACCINE (for 6+ mo) 0.5 ML DOSE IMVAC ONE (08:00)
[2024-01-16] MEDS: PANTOPRAZOLE INJ 80 MG in NA CHLORIDE 0.9% 250 ML IV SCH (08:07)
[2024-01-16 08:23] VITALS: O2SAT 98
[2024-01-16] MEDS: lisinopriL 10 MG TAB PO SCH (08:33)
[2024-01-16 08:45] VITALS: BP 173/103
[2024-01-16] MEDS ORDERED: LORazepam 2 MG/ML VIAL ONE (09:44)
[2024-01-16] MEDS ORDERED: DEXMEDETOMIDINE HCL 200 MCG in NA CHLORIDE 0.9% 98 ML IV SCH (10:00)
[2024-01-16] MEDS ORDERED: chlordiazePOXIDE HCl 25 MG CAP PO SCH (10:00)
[2024-01-16 10:57] VITALS: TEMP 98.4
--- NOTE | 2024-01-16 11:02 | P.DS ---
Admission Date: 01/15/24 Discharge Date: 01/16/24 Disposition: AMA-LEFT AGAINST MEDICAL ADVIC Discharge Condition: FAIR Reason for Admission: alcohol withdraw, GI bleed Brief History of Present Illness: Diagnosis Alcohol withdrawal GI bleed Thrombocytopenia Hyperglycemia secondary to alcohol consumption Left nonobstructing renal calculi History of anxiety History of hypertension HPI 01/15/24 Melchor Min is a 58-year-old male with past medical history of hypertensive disorder, alcohol abuse, who presents to the ED with complaints of abdominal pain, black tarry stools, and vomiting since last night. While in the ED he experienced coffee-ground emesis and melena. Reports drinking 1/5 liquor daily with last drink this morning. He c/o nausea and vomiting, unable to keep anything down. On examination, he is cooperative but aggitated, unable to lay still. He reports having a GI bleed in the past requiring blood transfusion. Initial vitals BP 198 / 132; Pulse 115; Resp 18; Pulse Ox 95% Laboratory evaluation H&H 13/37, platelets 58, serum glucose 162, lipase 52, AST 84 PT/INR 10.6/0.96, APTT 24.7 CT abdomen pelvis reports "Nonobstructing left renal calculi largest measuring up to 4 mm. No other acute intraabdominal process." Melchor will be admitted to hospitalist service for further evaluation and treatment of alcohol withdrawal and GI bleed, Dr. Negrete consulted. Hospital Course: 01/16/24 Melchor Min presented to the ED with chief complaint of coffee ground emesis and lower GI bleed. He reported drinking 1/5 liquor daily with his last drink the morning of his admission. Dr. Negrete was consulted for further evaluation of his condition. Melchor became agitated and confused overnight requiring ativan with scheduled librium. This agitation continued to this morning. He demanded to go home so he could drink a beer and lay down. His blood pressure was elevated during this admission but he was wanting to go home instead of be treated. He continued to refuse treatment this morning. He is alert and oriented, he was able to call his friend for a ride, he signed the AMA paperwork after much discussion of the danger of possible leaving before medically ready. He refused the Upper GI scope for proper evaluation of his reported bleeding. He refused further treatment for detoxing. Alcohol cessation education was provided and he voiced an interest of checking into a rehab facility which he has done in the past. Physical Exam General: AAO x3, agitated HEENT: Atraumatic, Normocephalic, PERRLA Neck: Supple, 2+ carotid pulse no bruit, JVD not distended Respiratory: Clear to auscultation bilaterally, Normal air movement Cardiovascular: Normal pulses, RRR, Normal S1 S2 Capillary refill: <2 Seconds Gastrointestinal: Normal bowel sounds, Soft and benign Musculoskeletal: No swelling, No contractures Integumentary: No breakdown, No significant lesion, Neurological: Normal speech, Normal strength at 5/5 x4 extr, Normal tone, detoxing Vital Signs/Physical Exam: Temp Pulse Resp BP Pulse Ox 98.4 F 90 18 173/103 H 97 01/16/24 08:00 01/16/24 08:33 01/16/24 08:00 01/16/24 08:33 01/16/24 08:00 Laboratory Data at Discharge: WBC 4.80 thou/uL (4.3-10.9) 01/16/24 03:36 Hgb 12.4 g/dL (13.6-17.9) L 01/16/24 03:36 Hct 35.3 % (39.6-49.0) L 01/16/24 03:36 Plt Count 53 thou/uL (152-406) L 01/16/24 03:36 PT 10.6 SECONDS (9.5-12.5) 01/15/24 11:25 INR 0.96 01/15/24 11:25 APTT 24.7 SECONDS (24.3-36.9) 01/15/24 11:25 Sodium 135 mEq/L (136-145) L 01/16/24 03:36 Potassium 3.2 mEq/L (3.5-5.1) L 01/16/24 03:36 BUN 13 mg/dL (7-18) 01/16/24 03:36 Creatinine 0.86 mg/dL (0.70-1.30) 01/16/24 03:36 Glucose 116 mg/dL (74-106) H 01/16/24 03:36 Phosphorus 1.9 mg/dL (2.5-4.9) L 01/16/24 03:36 Magnesium 1.8 mg/dL (1.6-2.4) 01/16/24 03:36 Total Bilirubin 0.7 mg/dL (0.2-1.0) 01/15/24 11:25 AST 84 U/L (15-37) H 01/15/24 11:25 ALT 61 U/L (16-61) 01/15/24 11:25 Alkaline Phosphatase 72 U/L (45-117) 01/15/24 11:25 Lipase 52 U/L (13-75) 01/15/24 11:25 Home Medications: chlordiazePOXIDE HCl [Chlordiazepoxide HCl] 25 mg PO SEECOM 4 Days #6 cap 12/27/23 lisinopriL [Lisinopril] 10 mg PO DAILY #30 tab 12/27/23 Followup: NONE,NONE [Primary Care Provider] - Time spent managing pt's care (in minutes): 50
--- NOTE | 2024-01-16 14:17 | EKG ---
Test Date: 2024-01-15 Test Time: 10:36:08 Manager Global: NIURKA MEASUREMENT RESULTS: Intervals: Rate: 111 ID: [id number] QRSD: 80 QT: 336 QTc: 456 [place]: P: 66 ID: [id number] QRS: 51 T: 50 INTERPRETIVE STATEMENTS: Sinus tachycardia Possible Left atrial enlargement Left ventricular hypertrophy Abnormal ECG Compared to ECG 12/25/2023 06:24:08 Sinus rhythm no longer present Electronically Signed On 01-16-24 14:13:24 RESOURCES REPRESENTATIVE by Bigg Chan
[2024-01-16] MEDS ORDERED: PANTOPRAZOLE 40 MG INJ IVP SCH (21:00)
[2024-01-17] MEDS ORDERED: LORAZEPAM 1 MG TABLET PO SCH (20:00)
[2024-01-17] MEDS ORDERED: LORazepam 2 MG/ML VIAL IV SCH (20:00)
== END 2024-01-16 10:29 | disposition left against medical advice (07) ==
LOC: ER 10:11 → ERHOLD 14:20 → 2ND 17:04
PROVIDERS: ADMIT Internal Medicine; ATTEND Internal Medicine
DX: F10.239 Alcohol dependence with withdrawal, unspecified (principal); K92.2 Gastrointestinal hemorrhage, unspecified; R11.10 Vomiting, unspecified; K92.1 Melena; D69.6 Thrombocytopenia, unspecified; R73.9 Hyperglycemia, unspecified; N20.0 Calculus of kidney; I10 Essential (primary) hypertension; F41.9 Anxiety disorder, unspecified; Z53.29 Procedure and treatment not carried out because of patient's decision for other reasons
CPT/HCPCS: 93005; 85025 ×2; 80048; 36415; 86900; 83735; 86850; 84100; 85610; 86901; 85730; 83690; 80053; 74177; Q9967; C9113 ×3; J3360 ×2; J2405 ×3; J7050 ×2; J7030; 99285; G0378

== ENCOUNTER → 2024-01-24 | Emergency (ER) | payer OTHER ==
[~2024-01-24] MED LIST: MORPHINE 2 MG/ML SYR ONE; MORPHINE 4 MG/ML SYR ONE; ONDANSETRON 4 MG/2 ML VIAL ONE; lisinopriL 10 MG TAB ONE
--- OUTSIDE RECORDS SUMMARY | 2024-01-24 17:11 | XMS REPORT | Continuity of Care Document ---
Author Name Unknown Address [address] [facility] [address] [place] [address] [facility] thconnect Address [address] [facility] [facility] [address] [place] [address] Care Team Providers Care Electrical/Instrument Technician Name Role Phone Mayi Roman Attending Clinician Payers Payer Name Policy Type Policy Number Effective Date Expirati on Date Source Allergies, Adverse Reactions, Alerts Allergy Name Allergy Type Status Severity Reaction(s) Onset Date Inactive Date Treating Clinician Comments Source NO KNOWN ALLERGIE S Drug Class Active [facility] Social History Social Habit Start Date Stop Date Quantity Comments Source Sex Assigned At [facility] Exposure to SARS-CoV-2 (event) Not sure [facility] Smoking Status Start Date Stop Date Source Unknown if ever smoked [facility] Medications Ordered Medication Name Filled Medication Name Start Date Stop Date Current Medication? Ordering Clinician Indication Dosage Frequency Signature (SIG) Comments Components Source HYDROcodone -acetaminop hen (NORCO 5) 5-325 mg tablet 1 tablet 01-07 02:45: 00 01-07 02:15 :00 No 1{tbl} 1 tablet, Oral, ONCE, 1 dose, Sat01/06/21 at 2045, SILVINA [facility] ketorolac (TORADOL) injection 30 mg 01-07 00:15: 00 01-06 23:19 :00 No 30mg 30 mg, Slow IV Push, ONCE, 1 dose, Sat01/06/21 at 1815, SILVINA
Fa culty member approving Restricted medication : MAYI MONSON [facility] traMADoL 50 mg tablet 01-06 00:00: 00 Yes 4647 50mg Take 1 tablet by mouth every 6 (six) hours as needed for Pain (scale 7-10). Indication s: acute pain [facility] ibuprofen 600 mg tablet 01-06 00:00: 00 Yes [id number] 600mg Take 1 tablet by mouth every 6 (six) hours as needed for Pain (scale 4-6). [facility] Vital Signs Vital Name Observation Time Observation Value Comments S dima Systolic blood pressure 2021-01-07 01:00:00 148 mm[Hg] [facility] Diastolic blood pressure 2021-01-07 01:00:00 93 mm[Hg] [facility] Heart rate 2021-01-07 01:00:00 92 /min [facility] Respiratory rate 2021-01-07 01:00:00 18 /min [facility] Oxygen saturation in Arterial blood by Pulse oximetry 2021-01-07 01:00:00 97 /min [facility] Body temperature 2021-01-06 22:30:00 36.11 Brittnee [facility] Body height 2021-01-06 22:30:00 175.3 cm [facility] Body weight 2021-01-06 22:30:00 77.111 kg [facility] BMI 2021-01-06 22:30:00 25.10 kg/m2 [facility] Procedures Procedure Date / Time Performed Performing Clinicia n Source CT ABDOMEN PELVIS WO CONTRAST 2021-01-06 23:18:52 Mayi Monson [facility] COMP. METABOLIC PANEL (18512) 2021-01-06 22:44:00 Mayi Monson [facility] CBC WITH DIFF 2021-01-06 22:44:00 [facility] URINALYSIS 2021-01-06 22:44:00 [facility] NOTICE OF PRIVACY PRACTICES 2021-01-06 22:24:12 Doctor Unassigned, [facility] CONSENT/REFUSAL FOR DIAGNOSIS AND TREATMENT 2021-01-06 22:19:29 Doctor Unassigned, [facility] Encounters Start Date/Time End Date/Time Encounter Type Admission Type Attending Clinicians Care Facility Care Department Encounter ID Source 2021-01-06 16:24:00 2021-01-06 20:54:00 Emergency Mayi Monson [facility] [id number] [facility] 2021-01-06 16:21:00 2021-01-06 16:21:00 Emergency X RUST ERT [id number] [facility] Results Test Description Test Time Test [...] y Report Dictated by Resident: Neli Leonard MD., have reviewed this study and agree with the abovereport. [facility] Waefb8181-21-83 23:04:00* Test Item Value Reference Range Interpretation Comme nts NA (test code = 1817936901) 139 mmol/L 135-145 K (test code = 9127356212) 3.7 mmol/L 3.5-5 CL (test code = 2861866563) 105 mmol/L 98-108 CO2 TOTAL (test code = 5025266316) 24 mmol/L 23-31 AGAP (test code = 6039291227) 2-16 BUN (test code = 2358949936) 17 mg/dL 7-23 GLUCOSE (test code = 9859539501) 123 mg/dL 70-110 H CREATININE (test code = 9809426556) 0.69 mg/dL 0.6-1.25 TOTAL BILI (test code = 8067987248) 0.4 mg/dL 0.1-1.1 CALCIUM (test code = 4329633538) 8.9 mg/dL 8.6-10.6 T PROTEIN (test code = 7955074253) 6.9 g/dL 6.3-8.2 ALBUMIN (test code = 3062389832) 4.1 g/dL 3.5-5 ALK PHOS (test code = 5292385600) 52 U/L 34-122 ALTv (test code = 1742-6) 10 U/L 5-50 AST(SGOT) (test code = 2463162244) 20 U/L 13-40 eGFR Calculation (Non-) (test code = 3119258976) mL/min/1.73m2 eGFR Calculation () (test code = 9121298732) mL/min/1.73m2 DIANE (test code = DIANE) Association [...] imaging tests). Lab Interpretation (test code = 02816-7) Abnormal [facility] with Jccurdzhlfba2423-79-37 22:52:00* Test Item Value Reference Range Interpretation Comme nts WBC (test code = 6690-2) See_Comment [Allakos] The system which generated this result transmitted reference range: 4.20 - 10.70 10*3/?L. The reference range was not used to interpret this result as normal/abnormal. RBC (test code = 789-8) See_Comment [[employer]ak[employer]] The system which generated this result transmitted [...] 34.6 g/dL 31.2-35 RDW-SD (test code = 82107-9) 41.7 fL 38.5-51.6 RDW-CV (test code = 788-0) 12.6 % 12.1-15.4 PLT (test code = 777-3) See_Comment [Automated messa ge] The system which generated this result transmitted reference range: 150 - 328 10*3/?L. The reference range was not used to interpret this result as normal/abnormal. MPV (test code = 83422-0) 8.1 fL 9.8-13 L NRBC/100 WBC (test code = 7846897327) See_Comment [Automated Tapatap ssage] The system which generated this result transmitted reference range: 0.0 - 10.0 /100 WBCs. The reference range was not used to interpret this result as normal/abnormal. NRBC x10^3 (test code = 2743918127) <0.01 See_Comment [Automated messa ge] The system which generated this result transmitted reference range: 10*3/?L. The reference range was not used to interpret this result as normal/abnormal. GRAN MAT (NEUT) % (test code = 770-8) 49.5 % IMM GRAN % (test code = 0425527453) 0.40 % LYMPH % (test code = 736-9) 27.3 % MONO % (test code = 5905-5) 11.2 % EOS % (test code = 713-8) 10.8 % BASO % (test code = 706-2) 0.8 % GRAN MAT x10^3(ANC) (test code = 4892562263) 2.34 10*3/uL 1.99-6.95 IMM GRAN x10^3 (test code = 9416714833) <0.03 0-0.06 LYMPH x10^3 (test code = 731-0) 1.29 10*3/uL 1.09-3.23 MONO x10^3 (test code = 742-7) 0.53 10*3/uL 0.36-1.02 EOS x10^3 (test code = 711-2) 0.51 10*3/uL 0.06-0.53 BASO x10^3 (test code = 704-7) 0.04 10*3/uL 0.01-0.09 Lab Interpretation (test code = 84017-0) Abnormal [facility].Ova + Parasite EU7483-04-11 18:07:48CommentNo ova, cysts, or parasites seen. One negative specimen does not rule out the possibility ofa parasitic infection.Performed At: [facility] [address] [id number] Pollock MD Ph:[phone] + Parasite Exam LC 2019-05-27 18:07:47Final reportThese results were obtained using wet preparation(s) andtrichrome stained smear. This test does not include testingfor Cryptosporidium parvum, Cyclospora, or Microsporidia.Performed At: [facility] [address] [id number] Pollock MD Ph:[phone] Blood Fjgfpdk5021-69-35 12:02:12No growth at 5 days.POC Zzwmvip0400-35-52 11:15:26* Test Item Value Reference Range Interpretation Comme [facility] Glucose POC (test code = Glucose POC) 107 mg/dL 70-115 If you consi joni your patient critically ill, the Christopher-Accu Check Infrom II meter should not be used for Glucose determination. Draw a venous Glucose and send to the main Lab for analysis. Vitamin B12 Fbvxa0138-22-19 08:24:35* Test Item Value Reference Range Interpretation Comme [facility] B12 Level (test code = B12 Level) 589 pg/mL 211-946 Folate Xpscn4837-88-18 08:24:35* Test Item Value Reference Range Interpretation Comme [facility] Folate Level (test code = Folate Level) 15.2 ng/mL N Normal 3.0- 20.0 ng/mLBorderline 2.2-3.0 ng/mLDeficient <2.2 ng/mL POC Dyepyfp8511-74-95 08:22:56* Test Item Value Reference Range Interpretation Comme [facility] Glucose POC (test code = Glucose POC) 92 mg/dL 70-115 If you consi joni your patient critically ill, the Christopher-Accu Check Infrom II meter should not be used for Glucose determination. Draw a venous Glucose and send to the main Lab for analysis. IG Hhhct4279-91-68 07:07:44* Test Item Value Reference Range Interpretation Comme nts IG (test code = IG) 0.2 % 0.0-5.0 IG Abs (test code = IG Abs) 0 x10 N Complete Blood Count with Vfbknklgrith2655-61-88 07:07:43* Test Item Value Reference Range Interpretation [...] code = IPF) 0 % N Automated Nlmcyygobnpg7953-78-59 07:07:43* Test Item Value Reference Range Interpretation Comme nts Neutro Auto (test code = Gay tro Auto) 52.5 % 36.0-70.0 Lymph Auto (test code = Lymph Auto) 32.6 % 12.0-44.0 Parker Auto (test code = Parker Auto) 9.0 % 0.0-11.0 Eos, Auto (test code = Eos, Auto) 5.2 % 0.0-7.0 Basophil Auto (test code = B asophil Auto) 0.5 % 0.0-2.0 Neutro Absolute (test code = Neutro Absolute) 2.2 x10 1.6-7.4 Lymph Absolute (test code = Lymph Absolute) 1.37 x10 .50-4.60 Parker Absolute (test code = M jeremias Absolute) .38 x10 .00-1.20 Eos Absolute (test code = Eo s Absolute) 0.22 x10 0.00-0.74 Baso Absolute (test code = B aso Absolute) 0.02 x10 0.00-0.21 Comprehensive Metabolic Qvjok7296-94-11 06:40:56* Test Item Value Reference Range Interpretation [...] A/G Ratio) 1.5 ratio N Comprehensive Metabolic Rjuxj6712-64-68 06:40:56* Test Item Value Reference Range Interpretation [...] is not provided, and the patient is -Tunisian, multiply by 1.212. If sex is not [...] by the National Kidney Foundation, http://nkdep.nih.gov Magnesium Agail8805-48-56 06:40:56* Test Item Value Reference Range Interpretation Comme nts Magnesium Level (test code = Magnesium Level) 1.6 mg/dL 1.7-2.5 L Phosphorus Lwrvj5589-70-84 06:40:56* Test Item Value Reference Range Interpretation Comme nts Phosphorus Level (test code = Phosphorus Level) 5.40 mg/dL 2.70-4.50 H Comprehensive Metabolic Kimeq0411-96-83 06:40:56* Test Item Value Reference Range Interpretation [...] is not provided, and the patient is -Tunisian, multiply by 1.212. If sex is not [...] is not provided, and the patient is -Tunisian, multiply by 1.212. If sex is not [...] by the National Kidney Foundation, http://nkdep.nih.gov POC Awfinhe7269-00-02 19:14:54* Test Item Value Reference Range Interpretation Comme nts Glucose POC (test code = Glucose POC) 125 mg/dL 70-115 H If you consi joni your patient critically ill, the Christopher-Accu Check Infrom II meter should not be used for Glucose determination. Draw a venous Glucose and send to the main Lab for analysis. POC Hvcnumj6946-16-88 16:30:50* Test Item Value Reference Range Interpretation Comme nts Glucose POC (test code = Glucose POC) 126 mg/dL 70-115 H If you consi joni your patient critically ill, the Christopher-Accu Check Infrom II meter should not be used for Glucose determination. Draw a venous Glucose and send to the main Lab for analysis. POC Esutkxa9970-17-09 11:41:56* Test Item Value Reference Range Interpretation Comme nts Glucose POC (test code = Glucose POC) 93 mg/dL 70-115 If you consi joni your patient critically ill, the Christopher-Accu Check Infrom II meter should not be used for Glucose determination. Draw a venous Glucose and send to the main Lab for analysis. POC Usvcsod4526-44-21 07:51:27* Test Item Value Reference Range Interpretation Comme nts Glucose POC (test code = Glucose POC) 117 mg/dL 70-115 H If you consi joni your patient critically ill, the Christopher-Accu Check Infrom II meter should not be used for Glucose determination. Draw a venous Glucose and send to the main Lab for analysis. POC Qsogdkx6066-62-40 22:20:22* Test Item Value Reference Range Interpretation Comme nts Glucose POC (test code = Glucose POC) 102 mg/dL 70-115 If you consi joni your patient critically ill, the Christopher-Accu Check Infrom II meter should not be used for Glucose determination. Draw a venous Glucose and send to the main Lab for analysis. POC Seafmpu7246-04-35 17:45:16* Test Item Value Reference Range Interpretation Comme nts Glucose POC (test code = Glucose POC) 119 mg/dL 70-115 H If you consi joni your patient critically ill, the Christopher-Accu Check Infrom II meter should not be used for Glucose determination. Draw a venous Glucose and send to the main Lab for analysis. C. difficile CIXB9200-52-01 14:58:07* Test Item Value Reference Range Interpretation Comme nts C. difficile NAAT (test code = C. difficile NAAT) Positive Negative A Contact isolatio n reccommendedResults called to and read back by: Candelaria Pizano RN at 05/21/2019 14:55:58 CDT/CL Internal QC (test code = Internal QC) Acceptable CT Abdomen and Pelvis w/ Ugorxlsc6873-02-04 13:32:07Patient: JEANNETTE THRASHER Date/Time05/21/2019 13:10 CDTReason for [...] perforation. Normal appendix. Final Dictated by: MD Benton Eniola FDictated DT/TM: 05/21/2019 1:27 pmSigned by: MD Benton Eniola FSigned (Electronic Signature): 05/21/2019 1:32 pmCT Brain/Head w/o Udgjvofs1892-07-57 13:29:43Patient: JEANNETTE THRASHER Date/Time05/21/2019 13:10 CDTReason for ExamHeadache;Pain (please specify)ReportCT head without contrast 05/21/2019 1:26 PMCLINICAL HISTORY: HeadacheTECHNIQUE: Axial noncontrast CT images through the head were obtained. This examination was performed according to our departmental dose optimization program, which includes automated exposure control, adjustment of the mA and/or kV according to patient size, and/or use of iterative reconstruction techniq ue.COMPARISON: None availableLOCATION: [id number]:There is no hemorrhage, extra-axial collection, mass, hydrocephalus, [...] MRI is recommended. Final Dictated by: MD Jesse, Zach MonrealDictated DT/TM: 05/21/2019 1:26 pmSigned by: MD Jesse, Zach JSigned (Electronic Signature): 05/21/2019 1:29 pmPOC Hldnvpt9956-79-84 10:21:00* Test Item Value Reference Range Interpretation Comme nts Glucose POC (test code = Glucose POC) 131 mg/dL 70-115 H If you consi joni your patient critically ill, the Christopher-Accu Check Infrom II meter should not be used for Glucose determination. Draw a venous Glucose and send to the main Lab for analysis. Urine Mpwjjyd1680-72-81 10:17:20* Test Item Value Reference Range Interpretation [...] Enterobacter cloacae C Urine Added by GL_SJM_UA_CUL_INDHemoglobin C0s3786-35-91 07:33:43* Test Item Value Reference Range Interpretation Comme nts Hemoglobin A1c (test code = Hemoglobin A1c) 5.0 % 4.8-5.9 Non Diabetic 4.8-5.9%Diabetic <7.0% Thyroid Stimulating Fgkyadq4634-60-02 05:41:45* Test Item Value Reference Range Interpretation Comme nts TSH (test code = TSH) 0.432 mIU/mL 0.270-4.200 Pro B Natriuretic Jqgnjgx5201-39-05 05:41:45* Test Item Value Reference Range Interpretation Comme nts NT-proBNP (test code = NT-proBNP) 1188 pg/mL 0-124 H Troponin [id number] 05:41:45* Test Item Value Reference Range Interpretation [...] a diagnosis of chronic myocardial injury. Urinalysis Wkwcwynnlwc4002-25-50 05:28:06* Test Item Value Reference Range Interpretation [...] Acid, Plasma (Venous)) 1.9 mmol/L 0.5-1.9 Lipase Pwaph2529-61-37 05:07:40* Test Item Value Reference Range Interpretation Comme nts Lipase Level (test code = Li pase Level) 41 U/L 13-60 Lipid Xsptu3985-64-40 05:07:40* Test Item Value Reference Range Interpretation Comme nts Cholesterol Total (test code = Cholesterol Total) 191 mg/dL 0-200 RISK OF HEART DISEASEPublished by [place] [employer] Association Analyte Optimal Borderline Increased RiskCHOL [...] calculation is LDL/HDL Ratio=LDL Calc/HDL Chol Magnesium Zgwmc0746-66-71 05:07:40* Test Item Value Reference Range Interpretation Comme nts Magnesium Level (test code = Magnesium Level) 1.8 mg/dL 1.7-2.5 Oslxuuh1883-44-46 05:07:39* Test Item Value Reference Range Interpretation Comme nts Amylase Level (test code = A mylase Level) 28 28-100 Comprehensive Metabolic Bkdhp9496-89-67 05:07:39* Test Item Value Reference Range Interpretation [...] is not provided, and the patient is -Tunisian, multiply by 1.212. If sex is not [...] the National Kidney Foundation, http://nkdep.nih.gov Comprehensive Metabolic Kxiss3531-85-25 05:07:39* Test Item Value Reference Range Interpretation [...] is not provided, and the patient is -Tunisian, multiply by 1.212. If sex is not [...] by the National Kidney Foundation, http://nkdep.nih.gov Creatine Cykmii6735-27-90 05:07:39* Test Item Value Reference Range Interpretation Comme nts CK (test code = CK) 397 U/L 39-308 H Comprehensive Metabolic Jerov0541-38-79 05:07:39* Test Item Value Reference Range Interpretation [...] is not provided, and the patient is -Tunisian, multiply by 1.212. If sex is not [...] is not provided, and the patient is -Tunisian, multiply by 1.212. If sex is not [...] National Kidney Foundation, http://nkdep.nih.gov Prothrombin Time and ZLI8974-76-39 04:54:34* Test Item Value Reference Range Interpretation Comme nts Prothrombin Time (test code = Prothrombin Time) 9.6 seconds 9.8-13.4 L INR (test code = INR) 0.8 ratio 0.6-1.2 Urinalysis with Culture, if zpiazzxcb4546-19-20 04:49:44* Test Item Value Reference Range Interpretation [...] cre ated by rule GL_SJM_UA_MICRO_IN D POC Kqerpzx5240-89-99 21:45:21* Test Item Value Reference Range Interpretation Comme nts Glucose POC (test code = Glucose POC) 170 mg/dL 70-115 H If you consi joni your patient critically ill, the Christopher-Accu Check Infrom II meter should not be used for Glucose determination. Draw a venous Glucose and send to the main Lab for analysis. POC Feprkdk3428-50-42 19:00:22* Test Item Value Reference Range Interpretation [...] ngozi. Read back and verified? yes Blood Zwdaagb7798-84-99 15:01:57No growth at 5 days.Urinalysis Microscopic 2019-05-20 12:14:47* Test Item Value Reference Range Interpretation Comme nts UA WBC (test code = UA WBC) 6-10 0-5 A UA RBC (test code = UA RBC) 6-10 0-5 A UA Bacteria (test code = UA Bacteria) Many A UA Squam Epithelial (test co de = UA Squam Epithelial) 6-10 A POC [id number] 12:13:00* Test Item Value Reference Range Interpretation [...] Radial. L N XR Chest 1 View Itwpfox6140-41-14 12:07:02Patient: JEANNETTE THRASHER Date/Time05/20/2019 11:50 CDTReason for ExamCongestion ReportLOCATION: [id number] VIEWINDICATION: CongestionCOMPARISON: None availableFINDINGS: The lungs [...] and verified? yes Urinalysis with Culture, if gudoekhwf0687-99-32 12:05:14* Test Item Value Reference Range Interpretation [...] rule GL_SJM_UA_MICRO_IN D Drugs of Abuse Urine 24874-21-14 12:00:45* Test Item Value Reference Range Interpretation [...] = Cannabinoid Screen Ur) Negative Negative POC [id number] 10:36:51* Test Item Value Reference Range Interpretation [...] Draw Site) Radial. L N Comprehensive Metabolic Mzodn0744-67-91 10:24:56* Test Item Value Reference Range Interpretation [...] is not provided, and the patient is -Tunisian, multiply by 1.212. If sex is not [...] is not provided, and the patient is -Tunisian, multiply by 1.212. If sex is not [...] by the National Kidney Foundation, http://nkdep.nih.gov Manual Oumw4104-53-11 10:24:56* Test Item Value Reference Range Interpretation [...] = Lymph Man Abs) 1.1 x10 0.5-4.6 Parker Man Abs (test code = Parker Man Abs) 0.7 x10 0.0-1.2 Eos Man [...] = Plt Estimation) slight decrease Comprehensive Metabolic Dwtxu9650-13-92 10:24:56* Test Item Value Reference Range Interpretation [...] is not provided, and the patient is -Tunisian, multiply by 1.212. If sex is not [...] is not provided, and the patient is -Tunisian, multiply by 1.212. If sex is not [...] by the National Kidney Foundation, http://nkdep.nih.gov Creatine Uquopw7170-71-79 10:01:34* Test Item Value Reference Range Interpretation Comme nts CK (test code = CK) 154 U/L 39-308 Magnesium Shmfi5128-64-76 10:01:34* Test Item Value Reference Range Interpretation Comme nts Magnesium Level (test code = Magnesium Level) 2.4 mg/dL 1.7-2.5 IG Kzqkr6539-90-95 09:52:39* Test Item Value Reference Range Interpretation Comme nts IG (test code = IG) 0.6 % 0.0-5.0 IG Abs (test code = IG Abs) 0 x10 N Complete Blood Count with Agoitiqodlsm5336-10-68 09:52:38* Test Item Value Reference Range Interpretation [...]
[2024-01-24 17:38] LABS: Absolute Basophils 0.1 K/uL (0-0.5); Absolute Eosinophils 0.2 K/uL (0-0.5); Absolute Lymphocytes (CBC) 1.6 K/uL (0.7-4.9); Absolute Monocytes 0.5 K/uL (0.1-1.3); Absolute Neutrophil 1.4 K/uL (1.8-8.0); Basophils % 2.3 % (0-1.3); Eosinophils % 4.5 % (0-4.4); Hematocrit 34.8 % (39.6-49.0); Hemoglobin 12.1 g/dL (13.6-17.9); Lymphocytes % 42.6 % (15.3-44.8); MCH 33.1 pg (27.0-35.0); MCHC 34.9 g/dL (32.0-36.0); MCV 94.7 fL (80-100); MPV 5.6 fL (7.6-11.3); Monocytes % 13.9 % (3.3-12.3); Neutrophils % 36.7 % (41.7-73.7); Nucleated Red Blood Cells % 0.2 % (0-0); Platelets 190 thou/uL (152-406); RBC Red Blood Cell Count 3.67 M/uL (4.33-5.43); Red Cell Distribution Width 15.4 % (12.1-15.2)
[2024-01-24 17:55] LABS: Anion Gap 15.5 mEq/L (5.0-15.0); Potassium 3.5 mEq/L (3.5-5.1)
--- NOTE | 2024-01-24 19:05 | RAD REPORT ---
EXAM DESCRIPTION: CT - Head C Spine Cap W Con - 01/24/2024 6:23 pm CLINICAL HISTORY: TRAUMA COMPARISON: Thorax Wo Con dated 07/25/2021; Abdomen Pelvis W Contrast dated 01/15/2024 TECHNIQUE: Head and cervical spine CT images were obtained without IV contrast. Chest, abdomen, and pelvis CT images were obtained following intravenous administration of 95 mL Isovue-300. Multiplanar reformats were generated and reviewed. All CT scans are performed using dose optimization technique as appropriate and may include automated exposure control or mA/KV adjustment according to patient size. FINDINGS: CT HEAD: No intracranial hemorrhage, mass effect, or edema. No evidence of acute territorial infarct. No midli ne shift or abnormal fluid collection. The ventricles are normal in caliber and configuration for age . Patchy periventricular and deep white matter hypoattenuation, suggestive of chronic small vessel is chemic changes. Basal cisterns are patent. Mastoid aircells and paranasal sinuses are clear. No acute skull fracture. CT CERVICAL SPINE: No acute cervical spine fracture or subluxation. Vertebral body heights are well maintained. Facet alex ints are normal in alignment. No hyperattenuating canal hematoma. Prevertebral and paraspinous soft t issues are unremarkable. CT CHEST: No pneumothorax, pulmonary contusion or pleural fluid collection. No mediastinal hematoma and the aor ta and pulmonary arteries are unremarkable. Numerous bilateral pulmonary nodules, largest on the left is at that lower lobe, pleural-based, measuring 8 mm on axial image 55. The largest nodule on the ri ght is pleural-based along the lower aspect of the right upper lobe anteriorly measuring 7 mm on axia l image 41. Few other scattered nodules, including a 6 mm pleural-based peripheral right lower lobe n odule on axial image 48 and a pleural-based posterior right upper lobe 5 mm nodule on axial image 22. No chest will mass or abnormal axillary finding. No displaced rib fracture or other significant bony finding. CT ABDOMEN/ PELVIS: No evidence of traumatic injury to solid abdominal viscera. Nonobstructing left renal calculi largest measuring 4 mm. Gallbladder and biliary tree are unremarkable. No bowel injury or significant findin g. No free air, free fluid or abnormal fat stranding. No urinary bladder abnormality. No significant bony finding. Streak artifact in the pelvis resulting from bilateral hip arthroplasty hardware limits evaluation of the pelvic structures. Healed right rib fractures. IMPRESSION: No acute traumatic findings. Numerous bilateral pulmonary nodules up to 8 mm in size as above. Both infectious/inflammatory, and m etastatic etiologies should be considered. Nonobstructing left renal calculi up to 4 mm in size, stable.
--- NOTE | 2024-01-24 20:19 | RAD REPORT ---
EXAM DESCRIPTION: Shoulder Right 2 View - 01/24/2024 7:44 pm CLINICAL HISTORY: PAIN COMPARISON: No comparisons TECHNIQUE: Internal and external rotation views of the right shoulder were obtained. FINDINGS: Mildly comminuted fracture of the distal clavicle. AC joint mild degenerative changes. No acute or suspicious findings. IMPRESSION: Mildly comminuted fracture of the distal clavicle.
--- NOTE | 2024-01-24 20:27 | EDPHYS ---
Physician Documentation [facility] Name: Melchor Min Age: 58 yrs Sex: Male : 1965 Arrival Date: 01/24/2024 Time: 17:06 Bed 2 Private MD: ED Physician Bala Bagley HPI: 01/23 18:49 This 58 yrs old Male presents to ER via EMS with complaints of Fall Injury. rt 18:49 Patient presents to the ED with reported fall. Patient fell off of a trailer, about 15 rt feet onto grass onto his right shoulder. Reports pain to his shoulder as well as to his neck. He denies other injuries, acute complaints, symptoms are moderate severity, no other aggravating or alleviating factors.. Historical: - Allergies: 17:13 No Known Allergies; nj1 - PMHx: 17:13 Hypertensive disorder; Cirrhosis of liver; Alcoholism; Ulcer; nj1 - Immunization history:: Client reports having NOT received the Covid vaccine. - Social history:: Smoking status: Patient denies any tobacco usage or history of. Patient uses alcohol, on a daily basis. - Family history:: not pertinent. ROS: 18:49 Constitutional: Negative for fever, chills, and weight loss, Cardiovascular: Negative rt for chest pain, palpitations, and edema, Respiratory: Negative for shortness of breath, cough, wheezing, and pleuritic chest pain, Abdomen/GI: Negative for abdominal pain, nausea, vomiting, diarrhea, and constipation, Skin: Negative for injury, rash, and discoloration, Neuro: Negative for headache, weakness, numbness, tingling, and seizure, 18:49 MS/extremity: Positive for contusion, pain, Exam: 18:49 Constitutional: This is a well developed, well nourished patient who is awake, alert, rt and in no acute distress. Head/Face: Normocephalic, atraumatic. Chest/axilla: Normal chest wall appearance and motion. Nontender with no deformity. No lesions are appreciated. Cardiovascular: Regular rate and rhythm with a normal S1 and S2. No gallops, murmurs, or rubs. Normal PMI, no JVD. No pulse deficits. Respiratory: Lungs have equal breath sounds bilaterally, clear to auscultation and percussion. No rales, rhonchi or wheezes noted. No increased work of breathing, no retractions or nasal flaring. Abdomen/GI: Soft, non-tender, with normal bowel sounds. No distension or tympany. No guarding or rebound. No evidence of tenderness throughout. Skin: Warm, dry with normal turgor. Normal color with no rashes, no lesions, and no evidence of cellulitis. Neuro: Awake and alert, GCS 15, oriented to person, place, time, and situation. Cranial nerves II-XII grossly intact. Motor strength 5/5 in all extremities. Sensory grossly intact. Cerebellar exam normal. Normal gait. 18:49 Back: Right-sided paraspinal tenderness, no midline tenderness, no step-offs, 18:49 Musculoskeletal/extremity: Tenderness to the right shoulder, no deformities noted, forage motion, pulses, motor, sensation to. Vital Signs: 17:00 BP 185 / 112; Pulse 81; Resp 18; Temp 98.1(O); Pulse Ox 97% on R/A; Weight 68.04 kg; nj1 Height 5 ft. 9 in. ; Pain 10/10; 18:37 BP 176 / 108; Pulse 81; Resp 18; Pulse Ox 98% ; Pain 10/10; nj1 19:40 BP 168 / 100; Pulse 78; Resp 16; Pulse Ox 100% on R/A; jb4 20:20 BP 182 / 117; Pulse 89; Resp 16; Pulse Ox 99% on R/A; jb4 17:00 Body Mass Index 22.15 (68.04 kg, 175.26 cm) nj 17:00 Pain Scale: Adult nj 18:37 Pain Scale: Adult nj1 MDM: 17:11 Patient medically screened. rt 20:37 Differential diagnosis: Fracture, intracranial hemorrhage, pneumothorax. Data reviewed: rt vital signs, nurses notes, lab test result(s), radiologic studies. I considered the following discharge prescriptions or medication management in the emergency department Medications were administered in the Emergency Department. See MAR. Independent interpretation of the following test(s) in the Emergency Department X-Ray: My interpretation is Clavicle fracture seen on interpretation of x-ray images. Care significantly affected by the following chronic conditions: Hypertension. Care significantly affected by the following Social Determinants of Health: Misuse of alcohol and/or drugs. Counseling: I had a detailed discussion with the patient and/or guardian regarding the historical points, exam findings, and any diagnostic results supporting the discharge/admit diagnosis, lab results, radiology results, the need for outpatient follow up, to return to the emergency department if symptoms worsen or persist or if there are any questions or concerns that arise at home. ED course: Discussed with patient at length the pulmonary nodules, will treat as if this were infectious with antibiotics, however, patient was informed that this may be malignant and that he would require further outpatient follow-up for this to ensure clearance already at further evaluation.. 01/23 17:12 Order name: Basic Metabolic Panel; Complete Time: 18:14 rt 01/23 17:12 Order name: CBC with Diff; Complete Time: 18:14 rt 01/23 17:12 Order name: Type And Screen; Complete Time: 18:14 rt 01/23 17:12 Order name: CT Traumagram (Head C Spine CAP W Con); Complete Time: 19:18 rt 01/23 19:20 Order name: Shoulder Right (2 View) XRAY; Complete Time: 20:21 rt 01/23 17:12 Order name: Labs collected and sent; Complete Time: 17:33 rt 01/23 20:37 Order name: Sling; Complete Time: 20:42 rt Administered Medications: 17:33 Drug: morphine IVP or IV 4 mg IVP once over 4 mins Route: IVP; Infused Over: 4 mins; kd3 Site: right forearm; 18:30 Follow up: Response: No adverse reaction; Pain is unchanged, physician notified nj1 17:33 Drug: Ondansetron IVP 4 mg IVP once; over 2 minutes Route: IVP; Site: right forearm; kd3 18:30 Follow up: Response: No adverse reaction nj1 19:05 Drug: morphine IVP or IV 2 mg IVP once over 4 mins Route: IVP; Infused Over: 4 mins; nj1 Site: right forearm; 19:05 Drug: Lisinopril PO 10 mg PO once Route: PO; nj1 Disposition Summary: 01/24/24 20:26 Discharge Ordered Notes: Location: Home rt Problem: new rt Symptoms: have improved rt Condition: Stable rt Diagnosis - Right distal clavicle fracture rt - Multiple pulmonary nodules rt - Mechanical fall rt Followup: rt - With: Abhinav Brizuela MD - When: 7 - 10 days - Reason: Discharge Instructions: - Discharge Summary Sheet rt - Clavicle Fracture rt - Pulmonary Nodule rt Forms: - Medication Reconciliation Form rt - Thank You Letter rt - Antibiotic Education rt - Prescription Opioid Use rt - Patient Portal Instructions rt - Leadership Thank You Letter rt Prescriptions: - Augmentin 875-125 mg Oral Tablet - take 1 tablet ORAL route every 12 hours for 10 days; 20 tablet; Refills: 0, rt Product Selection Permitted - Tramadol 50 mg Oral Tablet - take 1 tablet ORAL route every 8 hours as needed; 12 tablet; Refills: 0, rt Product Selection Permitted Signatures: Dispatcher [employer] Arlen Morton, RN RN kd3 Bala Bagley MD MD rt Francia Panda RN RN nj1
--- NOTE | 2024-01-24 20:27 | ER ---
Nurse's Notes [facility] Name: Melchor Min Age: 58 yrs Sex: Male : 1965 Arrival Date: 01/24/2024 Time: 17:06 Bed 2 Private MD: Diagnosis: Right distal clavicle fracture;Multiple pulmonary nodules;Mechanical fall Presentation: 01/23 17:00 Chief complaint: EMS states: Slipped and fell of his RV roof, about 15 ft, into grass. nj1 Ambulatory upon arrival. co right shoulder pain. Denies LOC. Does not take blood thinners. 17:00 Coronavirus screen: Vaccine status: Patient reports being unvaccinated. Ebola Screen: nj1 Patient denies travel to an Ebola-affected area in the 21 days before illness onset. Initial Sepsis Screen: Does the patient meet any 2 criteria? No. Patient's initial sepsis screen is negative. Does the patient have a suspected source of infection? No. Patient's initial sepsis screen is negative. Risk Assessment: Do you want to hurt yourself or someone else? Patient reports no desire to harm self or others. Onset of symptoms was January 24, 2024. 17:00 Method Of Arrival: EMS: [facility] 17:00 Acuity: TERRY 3 nj1 Historical: - Allergies: 17:13 No Known Allergies; nj1 - PMHx: 17:13 Hypertensive disorder; Cirrhosis of liver; Alcoholism; Ulcer; nj1 - Immunization history:: Client reports having NOT received the Covid vaccine. - Social history:: Smoking status: Patient denies any tobacco usage or history of. Patient uses alcohol, on a daily basis. - Family history:: not pertinent. Screenin:16 [facility] ED Fall Risk Assessment (Adult) History of falling in the last 3 months, nj including since admission Yes- single mechanical fall (1 pt) Confusion or Disorientation No (0 pts) Intoxicated or Sedated No (0 pts) Impaired Gait No (0 pts) Mobility Assist Device Used No (0 pt) Altered Elimination No (0 pt) Score/Fall Risk Level 0 - 2 = Low Risk Oriented to surroundings, Maintained a safe environment, Hourly rounding (assess needs \T\ fall precautionary measures) done. Abuse screen: Denies threats or abuse. Denies injuries from another. Nutritional screening: No deficits noted. Tuberculosis screening: No symptoms or risk factors identified. Assessment: 17:14 General: Appears in no apparent distress. comfortable, Behavior is calm, cooperative, nj1 appropriate for age. Pain: Complains of pain in shoulder, right Pain currently is 10 out of 10 on a pain scale. Neuro: Level of Consciousness is awake, alert, obeys commands, Oriented to person, place, time, situation. Cardiovascular: Patient's skin is warm and dry. Respiratory: Airway is patent Respiratory effort is even, unlabored. Musculoskeletal: Range of motion: intact in all extremities, Reports pain in shoulder, right. 17:33 General: Pt remains on continuous monitoring, pt labs drawn from existing IV access kd3 from EMS and sent to the lab. PT medicated for pain and provided a warm blanket for comfort. Pt has no new requests at this time. . 18:17 Reassessment: Not in room, in imaging. nj1 18:38 Reassessment: Patient appears in no apparent distress at this time. Patient and/or hi1 family updated on plan of care and expected duration. Pain level reassessed. Patient is alert, oriented x 3, equal unlabored respirations, skin warm/dry/pink. 19:15 Reassessment: Patient appears in no apparent distress at this time. Patient and/or jb4 family updated on plan of care and expected duration. Pain level reassessed. Patient is alert, oriented x 3, equal unlabored respirations, skin warm/dry/pink. 20:42 Reassessment: Patient appears in no apparent distress at this time. Patient and/or jb4 family updated on plan of care and expected duration. Pain level reassessed. Patient is alert, oriented x 3, equal unlabored respirations, skin warm/dry/pink. Vital Signs: 17:00 BP 185 / 112; Pulse 81; Resp 18; Temp 98.1(O); Pulse Ox 97% on R/A; Weight 68.04 kg; nj1 Height 5 ft. 9 in. ; Pain 10/10; 18:37 BP 176 / 108; Pulse 81; Resp 18; Pulse Ox 98% ; Pain 10/10; nj1 19:40 BP 168 / 100; Pulse 78; Resp 16; Pulse Ox 100% on R/A; jb4 20:20 BP 182 / 117; Pulse 89; Resp 16; Pulse Ox 99% on R/A; jb4 17:00 Body Mass Index 22.15 (68.04 kg, 175.26 cm) nj1 17:00 Pain Scale: Adult nj1 18:37 Pain Scale: Adult nj1 ED Course: 17:10 Patient arrived in ED. hb 17:11 Bala Bagley MD is Attending Physician. rt 17:11 Francia Panda, RN is Primary Nurse. nj1 17:13 Triage completed. nj1 17:16 Arm band placed on right wrist. nj1 17:16 Patient has correct armband on for positive identification. Bed in low position. Call nj1 light in reach. Provided Education on: call light, fall precautions. 17:33 Basic Metabolic Panel Sent. kd3 17:33 CBC with Diff Sent. kd3 17:33 Type And Screen Sent. kd3 17:33 Initial lab(s) drawn, by ar, sent to lab. kd3 17:33 Maintain EMS IV. Dressing intact. Good blood return noted. Site clean \T\ dry. Gauge \T\ kd 3 site: 20 gauge right forearm . 18:25 CT Traumagram (Head C Spine CAP W Con) In Process Unspecified. EDMS 19:10 Report given to Adolfo RN and Pauly RN. nj1 19:46 Shoulder Right (2 View) XRAY In Process Unspecified. EDMS 19:49 Primary Nurse role handed off by Francia Panda, RN nj 19:56 Sadiq Ramos, RN is Primary Nurse. jb4 20:20 No provider procedures requiring assistance completed. IV discontinued, intact, jb4 bleeding controlled, No redness/swelling at site. Pressure dressing applied. 20:26 Abhinav Brizuela MD is Referral Physician. rt Administered Medications: 17:33 Drug: morphine IVP or IV 4 mg IVP once over 4 mins Route: IVP; Infused Over: 4 mins; kd3 Site: right forearm; 18:30 Follow up: Response: No adverse reaction; Pain is unchanged, physician notified nj1 17:33 Drug: Ondansetron IVP 4 mg IVP once; over 2 minutes Route: IVP; Site: right forearm; kd3 18:30 Follow up: Response: No adverse reaction nj1 19:05 Drug: morphine IVP or IV 2 mg IVP once over 4 mins Route: IVP; Infused Over: 4 mins; nj1 Site: right forearm; 19:05 Drug: Lisinopril PO 10 mg PO once Route: PO; nj1 Medication: 20:20 VIS not applicable for this client. jb4 Outcome: 20:26 Discharge ordered by . rt 20:43 Discharged to home ambulatory, jb4 20:43 Condition: stable 20:43 Discharge instructions given to patient, Instructed on discharge instructions, follow up and referral plans. no drinking with medication, no driving heavy equipment, medication usage, Demonstrated understanding of instructions, follow-up care, medications, Prescriptions given X 3, 20:44 Patient left the ED. jb4 Signatures: Dispatcher [employer] EDMS Jessica Alvarado RN RN Sadiq Ramos RN RN jb4 Arlen Bolivar RN RN kd3 Bala Bagley MD MD rt Francia Panda RN RN nj1 Corrections: (The following items were deleted from the chart) 17:16 17:14 Arm band placed on [place] [id number] 17:16 17:16 Arm band placed on [place] [id number]
[2024-01-24 21:14] VITALS: BP 182/117; O2SAT 99
== END ==
LOC: ER 17:06
DX: S42.031A Displaced fracture of lateral end of right clavicle, initial encounter for closed fracture (principal); R91.8 Other nonspecific abnormal finding of lung field; W17.89XA Other fall from one level to another, initial encounter; I10 Essential (primary) hypertension; F10.20 Alcohol dependence, uncomplicated; Z28.310 Unvaccinated for COVID-19
CPT/HCPCS: 85025; 80048; 36415; 86900; 86850; 86901; 70450; 72125; 71260; 74177; 73030; 96375; 96374; 99284; Q9967; J2270; J2405